=== PATIENT | female | born 1955 | race Caucasian/White ===

== ENCOUNTER 2016-09-30 22:20 | Inpatient (IN) | payer BC ==
[2016-09-30] VITALS (7 sets, daily range): BP systolic 174–193; BP diastolic 79–95; PULSE 78–86; RESP 16–18; TEMP 97.7; O2SAT 98–100
[~2016-09-30] VITALS: Ht 160 cm; Wt 38.9 kg
[~2016-09-30 22:20] MED LIST: ASPI325T PO; CLOP75 PO
[2016-09-30] MEDS ORDERED: SODIUM CHLORIDE 0.9% FLUSH 10 ML FLUSH IVF PRN (22:45)
--- NOTE | 2016-09-30 22:46 | PD ---
HPI Chief Complaint: leg weakness Time Seen by Provider: 22:33 Travel History International Travel<30 days: No Contact w/Intl Traveler<30days: No History of Present Illness HPI This is a 61-year-old female who presents to the emergency Department with onset of numbness and weakness in her left leg that started at around 3:00 this afternoon. She says she intermittently sat on the couch and then tried to walk around hoping it would go away but it hasn't minutes persisted throughout the day prompting her to come to the emergency department at 10:30 this evening. She denies any headache, difficulty speaking or upper extremity weakness. She has no pain in her feet. She had a stroke 3 years ago after which she had some difficulty speaking. She currently takes Plavix. She also has a remote history of uvular cancer. [facility] Past Medical History Narrative Medical prior stroke uvular cancer Social History Alcohol Use: No Tobacco Use: Yes Substance Use: Yes (marijuana occasionally) Allergies-Medications (Allergen,Severity, Reaction): Coded Allergies: Ampicillin (Verified Allergy, Intermediate, Rash, 09/30/16) Uncoded Allergies: AMPICILLIN-RASH (Allergy, Intermediate, Rash, 05/02/09) NKA (Allergy, Unknown, 11/28/02) Reported Meds & Prescriptions Reported Meds & Active Scripts Active Reported Plavix (Clopidogrel Bisulfate) 75 Mg Tab 75 Mg PO DAILY Review of Systems Except as stated in HPI: all other systems reviewed are Neg Physical Exam Narrative GENERAL: Cachectic, no acute distress SKIN: Focused skin assessment warm and dry. HEAD: Atraumatic. Normocephalic. EYES: Pupils equal and round. No injection or drainage. ENT: Moist mucous membranes NECK: Trachea midline. CARDIOVASCULAR: Regular rate and rhythm. No murmur appreciated. 2+ right dorsalis pedis pulse RESPIRATORY: Clear to auscultation. Breath sounds equal bilaterally. GASTROINTESTINAL: Abdomen soft, non-tender, nondistended. MUSCULOSKELETAL: No obvious deformities. NEUROLOGICAL: Awake and alert. No obvious cranial nerve deficits. No dysarthria or aphasia. 4 out of 5 strength in the left lower extremity. Decreased sensation in the left lower extremity distally involving the dorsal aspect of the foot and distal aspect of the leg. No upper extremity ataxia. PSYCHIATRIC: Appropriate mood and affect; insight and judgment normal. Data Data Last Documented VS Vital Signs Date Time Temp Pulse Resp B/P Pulse Ox O2 Delivery O2 Flow Rate FiO2 10/01/16 00:50 97.4 81 18 161/79 98 Room Air Orders Electrocardiogram (09/30/16 22:33) Prothrombin Time / Inr (Pt) (09/30/16 22:33) Act Partial Throm Time (Ptt) (09/30/16 22:33) Complete Blood Count With Diff (09/30/16 22:33) Comprehensive Metabolic Panel (09/30/16 22:33) Ct Brain W/O Iv Contrast(Rout) (09/30/16 22:33) Ecg Monitoring (09/30/16 22:33) Iv Access Insert/Monitor (09/30/16:33) Oximetry (09/30/16 22:33) Sodium Chloride 0.9% Flush (Ns Flush) (09/30/16 22:45) Cta Runoff W Iv Contrast W 3d (09/30/16 ) Chest, Single Ap (09/30/16 ) Urinalysis - C+S If Indicated (09/30/16 23:06) Lactic Acid (09/30/16 23:06) Sodium Chlor 0.9% 1000 Ml Inj (Ns 1000 M (09/30/16 23:30) Cath For Specimen (09/30/16 23:43) Iohexol 350 Inj (Omnipaque 350 Inj) (09/30/16 23:49) Urine Culture (10/01/16 00:00) Ciprofloxacin 400 Mg Premix (Cipro 400 M (10/01/16 01:15) Sodium Chlorid 0.9% 500 Ml Inj (Ns 500 M (10/01/16 01:15) Blood Culture (10/01/16 01:08) Lactic Acid (10/01/16 01:24) Heparin Infusion FAISAL.Q1H (10/01/16 01:59) Heparin Inj (Heparin Inj) (10/01/16 02:00) Heparin Inj (Heparin Inj) (10/01/16 08:00) Heparin Inj (Heparin Inj) (10/01/16 08:00) Heparin-D5w Inj (Heparin-D5w Inj) (10/01/16 02:00) Act Partial Throm Time (Ptt) (10/01/16 01:59) Cbc No Diff, Includes Plts (10/01/16 01:59) Cbc No Diff, Includes Plts (10/04/16 06:00) Act Partial Throm Time (Ptt) (10/01/16 08:59) Occult Blood (Hemoccult) Stool (10/01/16 01:59) Invasive Rad Dept Consult (10/01/16 ) Admit Order (Ed Use Only) (10/01/16 02:16) Admit To Inpatient (10/01/16 ) Vital Signs (Adult) Q4H (10/01/16 02:16) Activity Bed Rest (10/01/16 02:16) Fashion Styling Intern / Telemetry .CONTINUOUS (10/01/16 02:16) Diet Npo (10/01/16 Breakfast) Sodium Chloride 0.9% Flush (Ns Flush) (10/01/16 02:30) Sodium Chloride 0.9% Flush (Ns Flush) (10/01/16 09:00) Basic Metabolic Panel (Bmp) (10/02/16 06:00) Complete Blood Count With Diff (10/02/16 06:00) Case Management Consult (10/01/16 02:16) Naloxone Inj (Narcan Inj) (10/01/16 02:30) Inpatient Certification (10/01/16 ) Labs Laboratory Tests Test 09/30/16 09/30/16 10/01/16 10/01/16 22:35 23:15 00:00 01:25 White Blood Count 18.3 TH/MM3 Red Blood Count 4.45 MIL/MM3 Hemoglobin 13.8 GM/DL Hematocrit 42.1 % Mean Corpuscular Volume 94.5 FL Mean Corpuscular Hemoglobin 30.9 PG Mean Corpuscular Hemoglobin 32.7 % Concent Red Cell Distribution Width 15.6 % Platelet Count 849 TH/MM3 Mean Platelet Volume 6.9 FL Neutrophils (%) (Auto) 89.5 % Lymphocytes (%) (Auto) 4.7 % Monocytes (%) (Auto) 4.6 % Eosinophils (%) (Auto) 0.3 % Basophils (%) (Auto) 0.9 % Neutrophils # (Auto) 16.3 TH/MM3 Lymphocytes # (Auto) 0.9 TH/MM3 Monocytes # (Auto) 0.8 TH/MM3 Eosinophils # (Auto) 0.1 TH/MM3 Basophils # (Auto) 0.2 TH/MM3 CBC Comment AUTO DIFF Differential Comment AUTO DIFF CONFIRMED Platelet Estimate HIGH Platelet Morphology Comment NORMAL Prothrombin Time 12.0 SEC Prothromb Time International 1.1 RATIO Ratio Activated Partial 31.3 SEC Thromboplast Time Sodium Level 131 MEQ/L Potassium Level 3.7 MEQ/L Chloride Level 99 MEQ/L Carbon Dioxide Level 23.1 MEQ/L Anion Gap 9 MEQ/L Blood Urea Nitrogen 23 MG/DL Creatinine 1.20 MG/DL Estimat Glomerular Filtration 46 ML/MIN Rate Random Glucose 304 MG/DL Calcium Level 9.3 MG/DL Total Bilirubin 0.3 MG/DL Aspartate Amino Transf 60 U/L (AST/SGOT) Alanine Aminotransferase 87 U/L (ALT/SGPT) Alkaline Phosphatase 337 U/L Total Protein 8.2 GM/DL Albumin 3.4 GM/DL Lactic Acid Level 2.8 mmol/L 2.5 mmol/L Urine Collection Type CATH Urine Color YELLOW Urine Turbidity SLIGHT Urine pH 5.5 Urine Specific [place] 1.019 Urine Protein NEG mg/dL Urine Glucose (UA) 1000 OR GREATER mg/dL Urine Ketones NEG mg/dL Urine Occult Blood SMALL Urine Nitrite POS Urine Bilirubin NEG Urine Leukocyte Esterase NEG Urine RBC 0-3 /hpf Urine WBC 3-5 /hpf Urine Bacteria MANY /hpf Urine Hyaline Casts 3-5 /lpf Urine Mucus OCC /lpf Microscopic Urinalysis Comment CULTURE INDICATED MDM Medical Decision Making Medical Screen Exam Complete: Yes Emergency Medical Condition: Yes Interpretation(s) Afebrile, no tachycardia, mild hypertension Leukocytosis Thrombocytosis Hyperglycemia Alkaline phosphatase is 337 Occlusion of the common femoral artery with some reconstitution of flow but then occlusion of distal tributaries Differential Diagnosis Ischemic stroke, hemorrhagic stroke, arterial occlusion, neuropathy Narrative Course This is a 61-year-old female who presented to the emergency department reporting numbness and weakness in her left lower extremity. She initially thought she may have had a stroke. Her symptoms started around 3 PM today and she felt it go away but they only got worse. On exam she has a left lower extremity that is cooler than the right now is unable to Doppler a DP pulse on the left. I suspect her symptoms are secondary to arterial occlusion. CTA was obtained which demonstrates occlusion of the common femoral some reconstitution of flow but distal occlusion that is likely causing her symptoms. She was started on heparin. I spoke to Dr. Blanco regarding the patient's CTA results. She will be transferred to the main hospital for intervention radiology evaluation as soon as possible. We discussed possibly placing a central line. 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 I will defer to interventional radiology as I don't want to interfere with access for their procedure. Incidentally the patient also has a leukocytosis and thrombocytosis. Her alkaline phosphatase is slightly elevated. She is cachectic on exam and I would not be surprised if she has an underlying malignancy contributing to some of her lab abnormalities. She also has a urinary tract infection for which she was covered with ciprofloxacin. Physician Communication Physician Communication Discussed with Dr. Blanco and Dr. Schmidt Diagnosis Primary Impression: Arterial occlusion Additional Impression: Urinary tract infection Qualified Code: N30.00 - Acute cystitis without hematuria Admitting Information Admitting Physician Requests: it Raina Cheema MD Sep 30, 2016 22:46
[2016-09-30 22:54] LABS: AUTOMATED NEUTROPHIL # 16.3 TH/MM3 (1.8-7.7); BASOPHIL # 0.2 TH/MM3 (0-0.2); BASOPHIL % 0.9 % (0.0-2.0); EOSINOPHIL # 0.1 TH/MM3 (0-0.4); EOSINOPHIL % 0.3 % (0.0-4.0); HEMATOCRIT 42.1 % (35.0-46.0); HEMO FLAGS AUTO DIFF; LYMPH % 4.7 % (9.0-44.0); LYMPHOCYTE # 0.9 TH/MM3 (1.0-4.8); MEAN CELL VOLUME 94.5 FL (80.0-100.0); MEAN CORPUSCULAR HEMOGLOBIN 30.9 PG (27.0-34.0); MEAN CORPUSCULAR HGB CONC 32.7 % (32.0-36.0); MONO % 4.6 % (0.0-8.0); NEUT % 89.5 % (16.0-70.0); PLATELET COUNT 849 TH/MM3 (150-450); RED BLOOD COUNT 4.45 MIL/MM3 (4.00-5.30); RED CELL DISTRIBUTION WIDTH 15.6 % (11.6-17.2); WHITE BLOOD COUNT 18.3 TH/MM3 (4.0-11.0)
[2016-09-30] MEDS ORDERED: PLAV75TA29 PO (22:54)
[2016-09-30 23:06] LABS: CHLORIDE 99 MEQ/L (98-107); POTASSIUM 3.7 MEQ/L (3.5-5.1); SODIUM (NA) 131 MEQ/L (136-145)
[2016-09-30 23:10] LABS: ANION GAP 9 MEQ/L (5-15); BICARBONATE 23.1 MEQ/L (21.0-32.0); BLOOD UREA NITROGEN 23 MG/DL (7-18)
[2016-09-30 23:13] LABS: ALT (GPT) 87 U/L (10-53); AST (GOT) 60 U/L (15-37); GLOMERULAR FILTRATION RATE 46 ML/MIN (>89)
[2016-09-30 23:15] LABS: TOTAL BILIRUBIN ADULT 0.3 MG/DL (0.2-1.0)
[2016-09-30 23:16] LABS: ALKALINE PHOSPHATASE 337 U/L (45-117)
[2016-09-30 23:24] LABS: PLATELET ESTIMATE SMEAR HIGH (NORMAL); PLATELET MORPHOLOGY NORMAL (NORMAL); SCAN/DIFF AUTO DIFF CONFIRMED
[2016-09-30] MEDS ORDERED: SODIUM CHLOR 0.9% 1000 ML INJ 1,000 ML IV ONE (23:30)
[2016-09-30 23:35] LABS: APTT (PATIENT) 31.3 SEC (24.3-30.1); INTERNATIONAL NORMALIZED RATIO 1.1 RATIO
[2016-09-30] MEDS ORDERED: IOHEXOL 350 MG/ML 10 ML VIAL (for RAD DIAG) IV ONE (23:49)
[2016-10-01] VITALS (21 sets, daily range): BP systolic 107–181; BP diastolic 63–95; PULSE 59–95; RESP 16–23; TEMP 97.4–98.5; O2SAT 65–100
--- NOTE | 2016-10-01 | RADRPT ---
EXAM DATE/TIME: 09/30/2016 23:18 [facility] COMPARISON: No previous studies available for comparison. INDICATIONS : Left lower extremity weakness. Evaluate for cerebrovascular accident. RADIATION DOSE: 63.09 CTDIvol (mGy) MEDICAL HISTORY : Cerebrovascular disease. carcinoma, uvula SURGICAL HISTORY : Tubal ligation. uvula ENCOUNTER: Initial ACUITY: 1 day PAIN SCALE: 0/10 LOCATION: Left lower extremity TECHNIQUE: Multiple contiguous axial images were obtained of the head. Using automated exposure control and adj ustment of the mA and/or kV according to patient size, radiation dose was kept as low as reasonably a chievable to obtain optimal diagnostic quality images. DICOM format image data is available electro nically for review and comparison. FINDINGS: CEREBRUM: The ventricles are normal for age. No evidence of midline shift, mass lesion, hemorrhage or acute in farction. No extra-axial fluid collections are seen. Areas of encephalomalacia compatible with old i nfarcts are seen of the left parietal and frontal lobes. POSTERIOR FOSSA: The cerebellum and brainstem are intact. The 4th ventricle is midline. The cerebellopontine angle i s unremarkable. EXTRACRANIAL: There is a mucous retention cyst anteriorly in the right ethmoid air cells. SKULL: The calvaria is intact. No evidence of skull fracture. CONCLUSION: 1. No bleed or evidence of an acute ischemic event. 2. 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 3. Chronic-appearing sinus disease. Mitch Choi MD on September 30, 2016 at 23:57 Board Certified Radiologist. This report was verified electronically.
--- NOTE | 2016-10-01 00:02 | RADRPT ---
EXAM DATE/TIME: 09/30/2016 23:39 [facility] COMPARISON: No previous studies available for comparison. INDICATIONS : Short of breath. MEDICAL HISTORY : None. SURGICAL HISTORY : None. ENCOUNTER: Initial ACUITY: 1 day PAIN SCORE: 0/10 LOCATION: Bilateral chest FINDINGS: A single view of the chest demonstrates the lungs to be symmetrically aerated without evidence of mas s, infiltrate or effusion. The cardiomediastinal contours are unremarkable. Osseous structures are intact. CONCLUSION: No acute cardiopulmonary disease demonstrated. Mitch Choi MD on October 01, 2016 at 0:00 Board Certified Radiologist. This report was verified electronically.
[2016-10-01 00:23] LABS: BLOOD, URINE SMALL (NEG); KETONE, URINE NEG (NEG); PH, URINE 5.5 (5.0-8.5)
[2016-10-01 00:32] LABS: GLUCOSE,URINE 1000 OR GREATER mg/dL (NEG); NITRITE,URINE POS (NEG)
[2016-10-01 00:35] LABS: METHOD OF COLLECTION CATH; URINE COLOR YELLOW (YELLW/STRAW)
[2016-10-01 00:37] LABS: BACTERIA, URINE MANY /hpf; MUCUS URINE OCC /lpf (OCC)
[2016-10-01 00:38] LABS: RBC, URINE 0-3 /hpf (0-3)
[2016-10-01 00:49] LABS: COMMENT (UR) CULTURE INDICATED; CULTURE IF INDICATED CULTURE INDICATED
[2016-10-01] MEDS ORDERED: CIPROFLOXACIN 400 MG PREMIX 200 ML IV ONE (01:15)
[2016-10-01] MEDS ORDERED: SODIUM CHLORID 0.9% 500 ML INJ 500 ML IV ONE (01:15)
[2016-10-01] MEDS ORDERED: HEPARIN SODIUM - IV 10,000 UNITS/10 ML VIAL IV ONE (02:00)
[2016-10-01] MEDS ORDERED: HEPARIN-D5W INJ 250 ML IV SCH (02:00)
[2016-10-01] MEDS ORDERED: NALOXONE HCL 0.4 MG/ML AMP IV PRN (02:30)
[2016-10-01] MEDS ORDERED: SODIUM CHLORIDE 0.9% FLUSH 10 ML FLUSH IV FLUSH PRN (02:30)
[2016-10-01] MEDS ORDERED: MORPHINE SULFATE 4 MG/ML INJ IV PUSH ONE (02:45)
[2016-10-01 02:58] LABS: HEMATOCRIT 39.2 % (35.0-46.0); MEAN CELL VOLUME 95.1 FL (80.0-100.0); MEAN CORPUSCULAR HEMOGLOBIN 31.2 PG (27.0-34.0); MEAN CORPUSCULAR HGB CONC 32.8 % (32.0-36.0); PLATELET COUNT 683 TH/MM3 (150-450); RED BLOOD COUNT 4.13 MIL/MM3 (4.00-5.30); WHITE BLOOD COUNT 14.9 TH/MM3 (4.0-11.0)
[2016-10-01] MEDS ORDERED: MORPHINE SULFATE 8 MG/ML INJ IV PUSH ONE (03:00)
[2016-10-01 03:16] LABS: REVIEW FLAG FINAL
[2016-10-01 03:21] LABS: APTT (PATIENT) 32.9 SEC (24.3-30.1)
--- NOTE | 2016-10-01 04:34 | PD ---
Physical Exam Narrative General: The patient is a well-developed, thin appearing female in no acute distress. Head and Neck exam: Head is normocephalic atraumatic. Eyes: EOMI, pupils are equal round and reactive to light. Nose: Midline septum with pink mucous membranes Mouth: She is edentulous. Moist mucus membranes. Posterior oropharynx is not erythematous. No tonsillar hypertrophy. Uvula midline. Airway patent. Neck: No palpable lymphadenopathy. No nuchal rigidity. No thyromegaly. Cardiovascular: Regular rate and rhythm with a 1/6 systolic murmur. No gallops or rubs. No pulse deficit to the extremities and simultaneous auscultation and palpation of her radial artery. Lungs: Clear to auscultation bilaterally. No wheezes, rhonchi, or rales. Abdomen: Soft, without tenderness to palpation in all 4 quadrants of the abdomen. No guarding, rebound, or rigidity. Normal bowel sounds are audible. No tenderness on palpation of McBurney's point. Negative [place] sign. Extremities: No clubbing, cyanosis, or edema. The patient has equal coloration to bilateral lower extremities. The patient's left extremity is palpably cooler to touch compared to the right. The patient has a 2+ pulse in bilateral upper extremities, 2+ pulses in the right lower extremity. No palpable pulse in the left lower extremity. The patient's capillary refill on the left compared to the right is prolonged at 5 seconds. The patient has full range of motion of her left foot. The patient reports that previously she was not able to feel her left foot, however on examination at this time the patient reports having some sensation to her toes. No calf tenderness on palpation. Back: No costovertebral angle tenderness to palpation. Neurologic Exam: Grossly nonfocal. Skin Exam: No rash noted. Intact skin that is warm and dry. Data Data Last Documented VS Vital Signs Date Time Temp Pulse Resp B/P Pulse Ox O2 Delivery O2 Flow Rate FiO2 10/01/16 01:50 82 18 171/79 98 Room Air 10/01/16 00:50 97.4 Orders Electrocardiogram (09/30/16 22:33) Prothrombin Time / Inr (Pt) (09/30/16 22:33) Act Partial Throm Time (Ptt) (09/30/16 22:33) Complete Blood Count With Diff (09/30/16 22:33) Comprehensive Metabolic Panel (09/30/16 22:33) Ct Brain W/O Iv Contrast(Rout) (09/30/16 22:33) Ecg Monitoring (09/30/16 22:33) Iv Access Insert/Monitor (09/30/16 22:33) Oximetry (09/30/16 22:33) Sodium Chloride 0.9% Flush (Ns Flush) (09/30/16 22:45) Cta Runoff W Iv Contrast W 3d (09/30/16 ) Chest, Single Ap (09/30/16 ) Urinalysis - C+S If Indicated (09/30/16 23:06) Lactic Acid (09/30/16 23:06) Sodium Chlor 0.9% 1000 Ml Inj (Ns 1000 M (09/30/16 23:30) Cath For Specimen (09/30/16 23:43) Iohexol 350 Inj (Omnipaque 350 Inj) (09/30/16 23:49) Urine Culture (10/01/16 00:00) Ciprofloxacin 400 Mg Premix (Cipro 400 M (10/01/16 01:15) Sodium Chlorid 0.9% 500 Ml Inj (Ns 500 M (10/01/16 01:15) Blood Culture (10/01/16 01:08) Lactic Acid (10/01/16 01:24) Heparin Infusion FAISAL.Q1H (10/01/16 01:59) Heparin Inj (Heparin Inj) (10/01/16 02:00) Heparin Inj (Heparin Inj) (10/01/16 08:00) Heparin Inj (Heparin Inj) (10/01/16 08:00) Heparin-D5w Inj (Heparin-D5w Inj) (10/01/16 02:00) Act Partial Throm Time (Ptt) (10/01/16 01:59) Cbc No Diff, Includes Plts (10/01/16 01:59) Cbc No Diff, Includes Plts (10/04/16 06:00) Act Partial Throm Time (Ptt) (10/01/16 08:59) Occult Blood (Hemoccult) Stool (10/01/16 01:59) Invasive Rad Dept Consult (10/01/16 ) Admit Order (Ed Use Only) (10/01/16 02:16) Admit To Inpatient (10/01/16 ) Vital Signs (Adult) Q4H (10/01/16 02:16) Activity Bed Rest (10/01/16 02:16) Vocational Rehabilitation Consultant / Telemetry .CONTINUOUS (10/01/16 02:16) Diet Npo (10/01/16 Breakfast) Sodium Chloride 0.9% Flush (Ns Flush) (10/01/16 02:30) Sodium Chloride 0.9% Flush (Ns Flush) (10/01/16 09:00) Basic Metabolic Panel (Bmp) (10/02/16 06:00) Complete Blood Count With Diff (10/02/16 06:00) Case Management Consult (10/01/16 02:16) Naloxone Inj (Narcan Inj) (10/01/16 02:30) Inpatient Certification (10/01/16 ) Labs Laboratory Tests Test 09/30/16 09/30/16 10/01/16 10/01/16 22:35 23:15 00:00 01:25 White Blood Count 18.3 TH/MM3 Red Blood Count 4.45 MIL/MM3 Hemoglobin 13.8 GM/DL Hematocrit 42.1 % Mean Corpuscular Volume 94.5 FL Mean Corpuscular Hemoglobin 30.9 PG Mean Corpuscular Hemoglobin 32.7 % Concent Red Cell Distribution Width 15.6 % Platelet Count 849 TH/MM3 Mean Platelet Volume 6.9 FL Neutrophils (%) (Auto) 89.5 % Lymphocytes (%) (Auto) 4.7 % Monocytes (%) (Auto) 4.6 % Eosinophils (%) (Auto) 0.3 % Basophils (%) (Auto) 0.9 % Neutrophils # (Auto) 16.3 TH/MM3 Lymphocytes # (Auto) 0.9 TH/MM3 Monocytes # (Auto) 0.8 TH/MM3 Eosinophils # (Auto) 0.1 TH/MM3 Basophils # (Auto) 0.2 TH/MM3 CBC Comment AUTO DIFF Differential Comment AUTO DIFF CONFIRMED Platelet Estimate HIGH Platelet Morphology Comment NORMAL Prothrombin Time 12.0 SEC Prothromb Time International 1.1 RATIO Ratio Activated Partial 31.3 SEC Thromboplast Time Sodium Level 131 MEQ/L Potassium Level 3.7 MEQ/L Chloride Level 99 MEQ/L Carbon Dioxide Level 23.1 MEQ/L Anion Gap 9 MEQ/L Blood Urea Nitrogen 23 MG/DL Creatinine 1.20 MG/DL Estimat Glomerular Filtration 46 ML/MIN Rate Random Glucose 304 MG/DL Calcium Level 9.3 MG/DL Total Bilirubin 0.3 MG/DL Aspartate Amino Transf 60 U/L (AST/SGOT) Alanine Aminotransferase 87 U/L (ALT/SGPT) Alkaline Phosphatase 337 U/L Total Protein 8.2 GM/DL Albumin 3.4 GM/DL Lactic Acid Level 2.8 mmol/L 2.5 mmol/L Urine Collection Type CATH Urine Color YELLOW Urine Turbidity SLIGHT Urine pH 5.5 Urine Specific [place] 1.019 Urine Protein NEG mg/dL Urine Glucose (UA) 1000 OR GREATER mg/dL Urine Ketones NEG mg/dL Urine Occult Blood SMALL Urine Nitrite POS Urine Bilirubin NEG Urine Leukocyte Esterase NEG Urine RBC 0-3 /hpf Urine WBC 3-5 /hpf Urine Bacteria MANY /hpf Urine Hyaline Casts 3-5 /lpf Urine Mucus OCC /lpf Microscopic Urinalysis Comment CULTURE INDICATED Test 10/01/16 02:15 White Blood Count 14.9 TH/MM3 Red Blood Count 4.13 MIL/MM3 Hemoglobin 12.9 GM/DL Hematocrit 39.2 % Mean Corpuscular Volume 95.1 FL Mean Corpuscular Hemoglobin 31.2 PG Mean Corpuscular Hemoglobin 32.8 % Concent Red Cell Distribution Width 16.0 % Platelet Count 683 TH/MM3 Mean Platelet Volume 6.9 FL Activated Partial 32.9 SEC Thromboplast Time [facility] Medical Record Reviewed: Yes Supervised Visit with ARIES: No Interpretation(s) Last Impressions Head CT 09/30/16 2233 Signed Impressions: Service Date/Time: Friday, September 30, 2016 23:18 - CONCLUSION: 1. No bleed or evidence of an acute ischemic event. 2. 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 3. Chronic-appearing sinus disease. Mitch Choi MD Chest X-Ray 09/30/16 0000 Signed Impressions: Service Date/Time: Friday, September 30, 2016 23:39 - CONCLUSION: No acute cardiopulmonary disease demonstrated. Mitch Choi MD Narrative Course During the course of the patients emergency department visit, the patients history, examination, and differential diagnosis were reviewed with the patient. The patient had IV access obtained and blood work sent for analysis. The patient was accepted in transfer from the [facility] emergency department. The patient was diagnosed with an arterial occlusion of the left leg. The patient reports that the onset of pain and numbness in her left leg began at approximately 3 to 4 PM. She reports that she was sitting on the couch and when she got up she noticed that she had numbness to that extremity. The patient was initially provided [-]. The patients laboratory studies were reviewed and remarkable for a white count of 14.9, hemoglobin 12.9, platelets 83, CMP is remarkable for a sodium of 131, BUN 23, creatinine 1.20, leukocyte 304, lactic acid 2.8, alkaline phosphatase 337, ALT 87, AST 60, PT 12, INR 1.1, PTT 31.3, repeat PTT is 32.9. The patient has been started on heparin. Urinalysis reveals 1000 or greater glucose, small occult blood, positive nitrite, many bacteria, culture indicated. Radiology studies were reviewed and remarkable for a chest x-ray that shows no acute cardiopulmonary disease, CT scan of the brain shows no evidence of bleed or acute ischemic event, left frontal and parietal lobe infarcts, chronic appearing sinus disease. The patient has been accepted in transfer to this facility by the [facility] hospitalist, Dr. Schmidt. She has been called regarding the patient's arrival in this emergency department. The patient has been transferred to this facility for intervention by the interventional radiology Department regarding her arterial occlusion of the left leg. Physician Communication Physician Communication I spoke to Dr. Schmidt regarding this patient's case. She is made aware that the patient is currently in the emergency department as a transfer from [place]. Diagnosis Primary Impression: Arterial occlusion Additional Impression: Urinary tract infection Qualified Code: N30.00 - Acute cystitis without hematuria Admitting Information Admitting Physician Requests: Admit Renée Villanueva MD Oct 01, 2016 04:34
[2016-10-01] MEDS ORDERED: HEPARIN SODIUM - IV 10,000 UNITS/10 ML VIAL IV PRN ×2 (08:00)
[2016-10-01] MEDS ORDERED: MIDAZOLAM HCL 5 MG/5 ML VIAL ONE (08:21)
[2016-10-01] MEDS ORDERED: fentaNYL CITRATE 250 MCG/5 ML AMP ONE (08:21)
--- NOTE | 2016-10-01 08:57 | RADRPT ---
EXAM DATE/TIME: 09/30/2016 23:24 [facility] COMPARISON: CHEST SINGLE AP, September 30, 2016, 23:39. INDICATIONS : Left lower extremity weakness. IV CONTRAST: 100 cc Omnipaque 350 (iohexol) IV RADIATION DOSE: 11.25 CTDIvol (mGy) MEDICAL HISTORY : Cerebrovascular disease. Carcinoma, uvula SURGICAL HISTORY : Tubal ligation. Uvula ENCOUNTER: Initial ACUITY: 1 day PAIN SCALE: 0/10 LOCATION: Left lower extremity TECHNIQUE: Volumetric scanning was performed using a multi-row detector CT scanner. The data was post processed with a variety of visualization algorithms including full volume maximum intensity projection, multi -planar sliding thin slab reformation, curved planar reformation, and surface rendering techniques. Using automated exposure control and adjustment of the mA and/or kV according to patient size, radiat ion dose was kept as low as reasonably achievable to obtain optimal diagnostic quality images. DICO M format image data is available electronically for review and comparison. FINDINGS: AORTA: Moderate distal aortic atherosclerotic calcifications without significant flow-limiting stenosis. No aortic aneurysm or significant dissection. A VISCERAL ARTERIES: Single bilateral renal arteries. This concentric moderate stenosis of the proximal right renal artery . Left renal artery is patent. Celiac, SMA, and ELENA are widely patent. RIGHT LEG: INFLOW: Bulky calcified plaque at the origin of the right common iliac artery. Eccentric noncalcified plaque throughout the right common iliac artery with resultant diffuse mild to moderate stenosis. Severe evens nosis of the ELENA origin. External iliac artery is patent. Noncalcified plaque in the mid to distal co mmon femoral artery with resultant moderate stenosis. OUTFLOW: Profunda femoris and SFA are widely patent. Popliteal artery is patent. RUNOFF: Three-vessel runoff to the foot. LEFT LEG: INFLOW: Mild atherosclerotic plaque at the origin of the common iliac artery. Moderate calcified plaque in th e distal left common iliac artery with resultant mild stenosis. External iliac artery is patent. Ecce ntric mixed plaque extending from the origin of the common femoral artery with occlusion of the mid t o distal common femoral artery. There is thrombus extending to the origin of the SFA and profunda. OUTFLOW: Profunda branches reconstitute distally. There is reconstitution of the SFA in the very proximal thig h. SFA is small in caliber but otherwise patent. The popliteal artery is also small in caliber but ot herwise patent. RUNOFF: Three-vessel runoff to the proximal calf. Distally, the runoff vessels are not visualized, concerning for distal emboli. GENERAL FINDINGS: Visualized lung bases are clear. Visualization of the abdominal viscera is limited due to arterial ph ase technique. Visualized portions of the liver demonstrate multiple hypodense masses in both lobes o f the liver. Largest mass measures approximately 3.4 x 2.7 cm in the central right lobe of the liver. No significant volume loss or hepatic ductal dilatation. There also bilateral low density adrenal ma sses. Right adrenal mass measures 9.5 x 1.2 cm. In the right the multiple left adrenal masses. The la rgest mass measures 3.9 x 2.1 cm. There is a subcentimeter region of decreased density in the spleen which may be related to her phase of contrast or. There is a 4 mm calcified calculus in the posterior mid left kidney. Numerous bilateral subcentimeter cystic lesions which are too small to fully charac terize. Kidneys otherwise demonstrate symmetrical enhancement without significant hydronephrosis. [place] el appear grossly unremarkable. There is a small amount of endometrial fluid. Uterus otherwise appears unremarkable. There are bilate ral adnexal masses measuring 2.5 x 2.4 cm on the left and 2.1 x 2.5 cm on the right. Trace free fluid in the posterior pelvis. Bladder is distended but otherwise unremarkable. There are no abnormal lyti c or blastic bony lesions. CONCLUSION: 1. Abnormal examination demonstrating occlusion of the left common femoral artery with thrombus exten ding to the origin of the profunda and SFA. Additionally, the left runoff vessels are not visualized beyond the proximal calf concerning for distal emboli. 2. Large bilateral adrenal masses and numerous bilobar low density hepatic masses consistent with met astatic disease. 3. Bilateral adnexal prominence/masses, likely ovarian in etiology. This can be further evaluated wit h ultrasound exam. Differential considerations include prominent ovarian tissue versus ovarian masses , likely metastatic. Overall pattern of the abnormalities in the abdomen is not consistent with ovari an primary. 4. Subcentimeter region of ill-defined decreased density in the spleen may be related to phase of con trast although a splenic mass cannot be excluded. 5. Additional findings include nonobstructing 4 mm left renal calculus. Josias Mena MD on October 01, 2016 at 7:42 Board Certified Radiologist. This report was verified electronically.
[2016-10-01] MEDS ORDERED: ALTEPLASE RECOMBINANT 2 MG VIAL ONE (09:00)
[2016-10-01] MEDS: SODIUM CHLORIDE 0.9% FLUSH 10 ML FLUSH IV FLUSH SCH ×2 (09:00→21:00)
[2016-10-01] MEDS ORDERED: IODIXANOL 320 MG/ML 50 ML VIAL (for RAD SPEC) I-ARTERIAL ONE (11:03)
--- NOTE | 2016-10-01 11:06 | EKG ---
Date Performed: 09/30/2016 Time Performed: 22:44:48 PTAGE: 61 years EKG: Sinus rhythm NORMAL ECG Compared to prior tracing no significant change DOCTOR: El Beckett Interpretating Date/Time 10/01/2016 11:05:50
[2016-10-01] MEDS ORDERED: ONDANSETRON HCL 4 MG/2 ML VIAL ONE (11:28)
--- NOTE | 2016-10-01 11:36 | PD.RAD ---
Post Procedure Progress Note Pre Procedure Diagnosis: (1) Arterial occlusion Post Procedure Diagnosis: (1) Arterial occlusion Procedure Date: Oct 01, 2016 Supervising Radiologist: Josias Mena Proceduralist/Assist: Addy Rodriguez, RT(R), Alisha Loomis, RT(R), Elizabeth Joseph RT(R)() Anesthesia: Conscious Sedation Plan of Activity Patient to Unit: [facility] Patient Condition: Good Additional Comments: Occluded left MEDICATION ASSISTANT with distal SFA and POP embolism. Good result after TPA pulse spray and angiojet thrombectomy. See PACS Report for procedural detail/treatment Josias Mena MD Oct 01, 2016 11:36
[2016-10-01] MEDS ORDERED: ACETAMINOPHEN 325 MG TAB PO PRN (11:45)
[2016-10-01] MEDS: CIPROFLOXACIN 400 MG PREMIX 200 ML IV SCH (12:00)
--- NOTE | 2016-10-01 14:54 | RADRPT ---
EXAM DATE/TIME: 10/01/2016 08:38 [facility] COMPARISON: No previous studies available for comparison. INDICATIONS : 61-year-old female with history of suspected metastatic disease who presents with acute left lower ex tremity ischemia. CTA examination demonstrates occlusion of the left common femoral artery and likely embolic disease to the runoff vessels. Patient presents for angiography and possible intervention. 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 Ultrasound-guided puncture of the access site. 2. Conscious sedation with continuous EKG and Oximetry monitoring. 3. Pelvic angiogram 4. Selective catheter placement in the contralateral right SFA with right lower extremity runoff 5. TPA and AngioJet thrombolysis of the right common femoral artery, SFA, and popliteal artery 6. 5 mm balloon angioplasty of the distal left common femoral artery The risks, benefits and alternatives to the procedure were explained and verbal and written consent w as obtained. The site was prepped in sterile fashion. Full sterile technique was used, including ca p, mask, sterile gloves and gown and a large sterile sheet. Hand hygiene and 2% chlorhexidine and/or betadine/alcohol prep was utilized per protocol for cutaneous antisepsis. The skin and subcutaneous tissues were infiltrated with local anesthetic solution. With ultrasound and fluoroscopic guidance the selected artery was punctured and a vascular sheath was placed. 5 Iraqi flush catheter was then advanced into the distal abdominal aorta and pelvic angioma s performed. This confirmed the significantly sluggish flow in the left external iliac artery seconda ry to occlusion of the mid to distal left common femoral artery. Catheter was then advanced into the proximal right SFA with the assistance of a Glidewire. Bilateral runoff was performed. This demonstra marlyn a small emboli in the distal SFA, popliteal artery, and origin of the anterior tibial artery. Gli dewire was successfully advanced into the distal anterior tibial artery and the sheath was exchanged for a 6 Iraqi sheath which was placed in the contralateral right external iliac artery. Next, 10 mg of TPA were aspirated through the left femoral artery, SFA, popliteal artery and origin of the anteri or tibial artery. Following a 30 minute time, AngioJet thrombectomy was performed with total time was approximately 110 seconds. A followup angiography demonstrated continued flow to the critical stenos is of the distal common femoral artery at the bifurcation. 5 x 40 mm balloon angioplasty was then per formed in the distal left common femoral artery with balloon inflated to nominal pressure. Followup a ngiography demonstrated excellent angiographic results with brisk flow through the common femoral art wily into the SFA. Repeat lower extremity runoff was then performed demonstrating brisk flow through t he SFA and popliteal arteries with a dominant anterior tibial artery. Flow extends to the dorsal and plantar arches although the plantar arch appears diminutive in caliber which may reflect some degree of micro-distal emboli. Given suspected metastatic disease, decision was made to terminate the proce dure at this time with sufficient flow to maintain viability of the left foot. There are excellent pa lpable dorsalis pedis and posterior tibial pulses. Wires and catheters were then removed. The puncture site was closed with manual pressure and hemostasis was obtained. The patient tolerated the procedure well and there were no complications. Conscious sedation was performed with the prescribed dosages and duration as above in the presence of an independent trained radiology nurse to assist in the monitoring of the patient. EKG and oximetry remained stable throughout the procedure. CONCLUSION: 1. Angiography confirms occlusion of the left common artery with involvement of the origin of the SFA and profunda. 2. Apparent interval distal embolization to the distal SFA, popliteal artery, and the intraventricula r artery. 3. Excellent angiographic result following pharmacomechanical thrombolysis utilizing AngioJet device and 5 balloon angioplasty of the distal left common femoral artery. 4. Intervention was not performed in the profunda and there is likely residual micro-emboli in the pl dharmesh arch. There is sufficient flow for viability of the left foot, therefore, overnight TPA infusio n was not performed in this patient with suspected metastatic disease. Josias Mena MD on October 01, 2016 at 14:33 Board Certified Radiologist. This report was verified electronically.
[2016-10-01] MEDS: SODIUM CHLOR 0.9% 1000 ML INJ 1,000 ML IV SCH (15:00)
[2016-10-01] MEDS ORDERED: RESP: ALBUTEROL 2.5 MG/IPRATROPIUM 0.5 MG NEB (PRN) NEB (15:00)
[2016-10-01] MEDS ORDERED: GLUCAGON 1 MG/ML VIAL OTHER PRN (15:00)
[2016-10-01] MEDS ORDERED: DEXTROSE 50% IN WATER 50 ML VIAL(D50) IV PRN (15:00)
--- NOTE | 2016-10-01 15:00 | HHI.HP ---
[facility] Service [facility] Primary Care Physician Non-Staff Admission Diagnosis arterial occlusion Diagnoses: (1) Arterial occlusion (2) Urinary tract infection Chief Complaint: Left lower extremity numbness Travel History International Travel<30 Days: No Contact w/Intl Traveler <30 Da: No Traveled to Known Affected Are: No History of Present Illness 61 year-old female with a history of tobacco abuse presented yesterday to the ED for evaluation of an acute onset of left lower extremity numbness and weakness which according to patient persisted intensity she was seen in the ED. CTA aorta run off was ordered and revealed left femoral artery occlusion for which interventional radiology was consulted and patient underwent angioplasty,TPA pulse spray and angiojet thrombectomy. Case was discussed with interventional radiologist. Patient is seen in the [facility] and complains of left lower extremity pain, although she had palpable pulses. 61-year-old female who presents to the emergency Department with onset of numbness and weakness in her left leg that started at around 3:00 this afternoon. She says she intermittently sat on the couch and then tried to walk around hoping it would go away but it hasn't minutes persisted throughout the day prompting her to come to the emergency department at 10:30 this evening. She denies any headache, difficulty speaking or upper extremity weakness. She has no pain in her feet. She had a stroke 3 years ago after which she had some difficulty speaking. She currently takes Plavix. She also has a remote history of uvular cancer. 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 Good result after TPA pulse spray and angiojet thrombectomy. Reported Medications Plavix (Clopidogrel Bisulfate) 75 Mg Tab 75 Mg PO DAILY Allergies: Coded Allergies: Ampicillin (Verified Allergy, Intermediate, Rash, 09/30/16) Uncoded Allergies: AMPICILLIN-RASH (Allergy, Intermediate, Rash, 05/02/09) NKA (Allergy, Unknown, 11/28/02) Family History She denies any family history of GI cancer, hypertension, CAD Social History Alcohol Use: No Tobacco Use: Yes Substance Use: Yes (marijuana occasionally) Physical Exam Vital Signs Vital Signs Date Time Temp Pulse Resp B/P Pulse Ox O2 Delivery O2 Flow Rate FiO2 10/01/16 14:35 72 20 120/82 96 10/01/16 14:05 71 18 120/91 96 10/01/16 13:35 59 18 124/83 98 10/01/16 13:05 65 16 121/81 97 10/01/16 12:35 70 16 118/87 96 10/01/16 12:05 95 18 107/83 95 10/01/16 11:35 79 18 116/90 95 10/01/16 11:20 79 16 115/89 94 10/01/16 11:05 65 18 123/95 65 10/01/16 10:50 97.9 73 18 123/91 97 10/01/16 07:03 72 20 134/72 97 10/01/16 04:08 80 23 133/68 100 Room Air 10/01/16 03:45 77 18 160/77 99 10/01/16 03:32 16 10/01/16 03:00 98 Room Air 10/01/16 02:50 82 18 170/77 97 Room Air 10/01/16 01:50 82 18 171/79 98 Room Air 10/01/16 00:50 97.4 81 18 161/79 98 Room Air 10/01/16 00:20 82 16 171/84 98 Room Air 09/30/16 23:50 82 18 179/81 98 Room Air 09/30/16 23:20 84 18 176/85 98 Room Air 09/30/16 22:50 80 18 180/79 99 Room Air 09/30/16 22:40 78 18 174/79 99 Room Air 09/30/16 22:40 16 100 Room Air 09/30/16 22:30 86 16 192/83 99 Room Air 09/30/16 22:25 97.7 83 18 193/95 100 09/30/16 22:20 100 Room Air Physical Exam GENERAL: Mild acute distress and looks older than his stated age SKIN: No rashes, ecchymoses or lesions. Cool and dry. HEAD: Atraumatic. Normocephalic. No temporal or scalp tenderness. EYES: Pupils equal round and reactive. Extraocular motions intact. No scleral icterus. No injection or drainage. ENT: Nose without bleeding, purulent drainage or septal hematoma. Throat without erythema, tonsillar hypertrophy or exudate. Uvula midline. Airway patent. NECK: Trachea midline. No JVD or lymphadenopathy. Supple, nontender, no meningeal signs. CARDIOVASCULAR: Regular rate and rhythm without murmurs, gallops, or rubs. RESPIRATORY: Clear to auscultation. Breath sounds equal bilaterally. No wheezes , rales, or rhonchi. GASTROINTESTINAL: Abdomen soft, non-tender, nondistended. No hepato-splenomegaly , or palpable masses. No guarding. MUSCULOSKELETAL: Extremities without clubbing, cyanosis, or edema. No joint tenderness, effusion, or edema noted. No calf tenderness. Negative Homans sign bilaterally. NEUROLOGICAL: Awake and alert. Cranial nerves II through XII intact. Motor and sensory grossly within normal limits. Five out of 5 muscle strength in all muscle groups. Normal speech. Laboratory Laboratory Tests Test 09/30/16 09/30/16 10/01/16 10/01/16 22:35 23:15 00:00 01:25 White Blood Count 18.3 Red Blood Count 4.45 Hemoglobin 13.8 Hematocrit 42.1 Mean Corpuscular Volume 94.5 Mean Corpuscular Hemoglobin 30.9 Mean Corpuscular Hemoglobin 32.7 Concent Red Cell Distribution Width 15.6 Platelet Count 849 Mean Platelet Volume 6.9 Neutrophils (%) (Auto) 89.5 Lymphocytes (%) (Auto) 4.7 Monocytes (%) (Auto) 4.6 Eosinophils (%) (Auto) 0.3 Basophils (%) (Auto) 0.9 Neutrophils # (Auto) 16.3 Lymphocytes # (Auto) 0.9 Monocytes # (Auto) 0.8 Eosinophils # (Auto) 0.1 Basophils # (Auto) 0.2 CBC Comment AUTO DIFF Differential Comment AUTO DIFF CONFIRMED Platelet Estimate HIGH Platelet Morphology Comment NORMAL Prothrombin Time 12.0 Prothromb Time International 1.1 Ratio Activated Partial 31.3 Thromboplast Time Sodium Level 131 Potassium Level 3.7 Chloride Level 99 Carbon Dioxide Level 23.1 Anion Gap 9 Blood Urea Nitrogen 23 Creatinine 1.20 Estimat Glomerular Filtration 46 Rate Random Glucose 304 Calcium Level 9.3 Total Bilirubin 0.3 Aspartate Amino Transf 60 (AST/SGOT) Alanine Aminotransferase 87 (ALT/SGPT) Alkaline Phosphatase 337 Total Protein 8.2 Albumin 3.4 Lactic Acid Level 2.8 2.5 Urine Collection Type CATH Urine Color YELLOW Urine Turbidity SLIGHT Urine pH 5.5 Urine Specific [place] 1.019 Urine Protein NEG Urine Glucose (UA) 1000 OR GREATER Urine Ketones NEG Urine Occult Blood SMALL Urine Nitrite POS Urine Bilirubin NEG Urine Leukocyte Esterase NEG Urine RBC 0-3 Urine WBC 3-5 Urine Bacteria MANY Urine Hyaline Casts 3-5 Urine Mucus OCC Microscopic Urinalysis Comment CULTURE INDICATED Test 10/01/16 02:15 White Blood Count 14.9 Red Blood Count 4.13 Hemoglobin 12.9 Hematocrit 39.2 Mean Corpuscular Volume 95.1 Mean Corpuscular Hemoglobin 31.2 Mean Corpuscular Hemoglobin 32.8 Concent Red Cell Distribution Width 16.0 Platelet Count 683 Mean Platelet Volume 6.9 Activated Partial 32.9 Thromboplast Time Date/Time Procedure Status Source Growth 10/01/16 01:25 Aerobic Blood Culture Received Blood Peripheral Pending 10/01/16 01:25 Anaerobic Blood Culture Received Blood Peripheral Pending 10/01/16 00:00 Urine Culture Received Urine Catheterized Urine Pending Result Diagram: 10/01/165 09/30/162234 Imaging Last Impressions Head CT 09/30/162232 Signed Impressions: Service Date/Time: Friday, September 30, 2016 23:18 - CONCLUSION: 1. No bleed or evidence of an acute ischemic event. 2. 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 3. Chronic-appearing sinus disease. Mitch Choi MD Chest X-Ray 09/30/16 0000 Signed Impressions: Service Date/Time: Friday, September 30, 2016 23:39 - CONCLUSION: No acute cardiopulmonary disease demonstrated. Mitch Choi MD Aorta w/Runoff CTA 09/30/16 0000 Signed Impressions: Service Date/Time: Friday, September 30, 2016 23:24 - CONCLUSION: 1. Abnormal examination demonstrating occlusion of the left common femoral artery with thrombus extending to the origin of the profunda and SFA. Additionally, the left runoff vessels are not visualized beyond the proximal calf concerning for distal emboli. 2. Large bilateral adrenal masses and numerous bilobar low density hepatic masses consistent with metastatic disease. 3. Bilateral adnexal prominence/masses, likely ovarian in etiology. This can be further evaluated with ultrasound exam. Differential considerations include prominent ovarian tissue versus ovarian masses, likely metastatic. Overall pattern of the abnormalities in the abdomen is not consistent with ovarian primary. 4. Subcentimeter region of ill-defined decreased density in the spleen may be related to phase of contrast although a splenic mass cannot be excluded. 5. Additional findings include nonobstructing 4 mm left renal calculus. Josias Mena MD Assessment and Plan Problem List: (1) Arterial occlusion ICD Code: I74.9 Status: Acute (2) Ovarian malignant neoplasm ICD Code: C56.9 Status: Acute (3) Urinary tract infection ICD Code: N39.0 Status: Acute (4) Acute renal failure ICD Code: N17.9 Status: Acute (5) IFG (impaired fasting glucose) ICD Code: R73.01 Status: Acute (6) Lactic acidosis ICD Code: E87.2 Status: Acute Assessment and Plan 61 year-old female with Left lower extremity Arterial occlusion Status post angioplasty, TPA pulse spray and angiojet thrombectomy Management per interventional radiology, with whom case was discussed after procedure Parenteral pain management accordingly Continue heparin drip Ovarian malignant neoplasm with possible metastases? CT abdomen noted and review with finding of Large bilateral adrenal masses and numerous bilobar low density hepatic masses consistent with metastatic disease.Bilateral adnexal prominence/masses, likely ovarian in etiology. Check pelvic ultrasound Check tumor markers including CA 125, CEA, AFP, LDH Consult medical and gynecology oncology Urinary tract infection On IV Cipro every 12 hours pending urine culture Lactic acidosis May be due to above infectious process, repeat lactic acid. Treat as in above Acute renal failure Starts gentle IV fluid hydration, monitor BUN and creatinine and avoid all nephrotoxic drugs. Impaired fasting glucose/hyperglycemia- No known history of diabetes type 2, check hemoglobin A1c DVT prophylaxis Heparin Code Status Full code Discussed Condition With Patient, interventional radiologist Physician Certification 2 Midnight Certification Type: Admission for Inpatient Services Order for Inpatient Services The services are ordered in accordance with Medicare regulations or non- Medicare payer requirements, as applicable. In the case of services not specified as inpatient-only, they are appropriately provided as inpatient services in accordance with the 2-midnight benchmark. Estimated LOS (days): 2 days is the estimated time the patient will need to remain in the hospital, assuming treatment plan goals are met and no additional complications. Post-Hospital Plan: Not yet determined Problem Qualifiers (1) Urinary tract infection: Qualified Code: N30.00 - Acute cystitis without hematuria Moe Raphael MD Oct 01, 2016 15:00
[2016-10-01] MEDS: INSULIN ASPART SUPPLEMENTAL SCALE SQ SCH ×2 (16:00→21:00)
[2016-10-01] MEDS: MORPHINE SULFATE 8 MG/ML INJ IV PUSH PRN (17:19)
[2016-10-01 20:08] LABS: APTT (PATIENT) 30.9 SEC (24.3-30.1)
[2016-10-02] VITALS (8 sets, daily range): BP systolic 122–161; BP diastolic 61–70; PULSE 57–74; RESP 16–20; TEMP 96–98.1; O2SAT 92–100
[2016-10-02] MEDS: CIPROFLOXACIN 400 MG PREMIX 200 ML IV SCH ×3 (00:35→23:57)
[2016-10-02] MEDS: SODIUM CHLOR 0.9% 1000 ML INJ 1,000 ML IV SCH (04:15)
[2016-10-02 06:29] LABS: AUTOMATED NEUTROPHIL # 8.8 TH/MM3 (1.8-7.7); BASOPHIL # 0.3 TH/MM3 (0-0.2); BASOPHIL % 2.9 % (0.0-2.0); EOSINOPHIL # 0.3 TH/MM3 (0-0.4); EOSINOPHIL % 2.7 % (0.0-4.0); HEMATOCRIT 32.7 % (35.0-46.0); HEMO FLAGS DIFF FINAL; LYMPH % 11.2 % (9.0-44.0); LYMPHOCYTE # 1.3 TH/MM3 (1.0-4.8); MEAN CELL VOLUME 94.6 FL (80.0-100.0); MEAN CORPUSCULAR HEMOGLOBIN 31.3 PG (27.0-34.0); MEAN CORPUSCULAR HGB CONC 33.1 % (32.0-36.0); MONO % 5.7 % (0.0-8.0); NEUT % 77.5 % (16.0-70.0); PLATELET COUNT 426 TH/MM3 (150-450); RED BLOOD COUNT 3.46 MIL/MM3 (4.00-5.30); WHITE BLOOD COUNT 11.3 TH/MM3 (4.0-11.0)
[2016-10-02 06:47] LABS: APTT (PATIENT) 32.9 SEC (24.3-30.1); INTERNATIONAL NORMALIZED RATIO 1.1 RATIO; PROTHROMBIN TIME - PATIENT 12.7 SEC (9.8-11.6)
[2016-10-02] MEDS: INSULIN ASPART SUPPLEMENTAL SCALE SQ SCH (07:00)
[2016-10-02 07:01] LABS: ANION GAP 7 MEQ/L (5-15); BICARBONATE 22.6 MEQ/L (21.0-32.0); BLOOD UREA NITROGEN 11 MG/DL (7-18); CHLORIDE 108 MEQ/L (98-107); GLOMERULAR FILTRATION RATE 76 ML/MIN (>89); POTASSIUM 3.6 MEQ/L (3.5-5.1); SODIUM (NA) 138 MEQ/L (136-145)
[2016-10-02 07:02] LABS: HDL CHOLESTEROL 41.2 MG/DL (40.0-60.0); LDL CHOLESTEROL 91 MG/DL (0-99)
[2016-10-02] MEDS: SODIUM CHLORIDE 0.9% FLUSH 10 ML FLUSH IV FLUSH SCH ×2 (09:00→20:49)
--- NOTE | 2016-10-02 09:14 | MB ---
cc: ESTHER GAGNON RUBY ANNE E. M.D. DATE OF CONSULTATION 10/01/2016 DATE OF [address] Esther Gagnon CHIEF COMPLAINT Dr. Gagnon requested consultation for Mrs. Joshi regarding suspected metastatic cancer. HISTORY OF PRESENT ILLNESS Mrs. Joshi is a 61-year-old woman previous patient of Dr. Leander Chu. 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 She had definitive concurrent chemotherapy and radiation. She was followed by Dr. Chu. She remained disease free. She has chronic problems with speaking, dry mouth and sinus issues related to her previous treatment. She reports needing a PEG tube. She did not require a tracheostomy. She continues to smoke. She has no plans on quitting as yet. She had the acute onset of left lower extremity numbness and weakness. A CT angiogram of the aorta with runoff was performed. It showed occlusion of the left common femoral artery with thrombus extending to the origin of the profunda and superior femoral artery. She underwent local thrombolytic therapy. She is in the ICU for thrombolytic therapy with an excellent response. She has resolution of the pain and swelling symptoms of the left leg. She has pulses bilaterally. Additional findings include bilateral adrenal masses, numerous by lobar low density hepatic masses consistent with metastatic disease and bilateral adnexal masses suspected to be ovarian etiology. There is also an ill-defined lesion in the spleen. For this reason, Hematology/Oncology is consulted. REVIEW OF SYSTEMS She denies any fevers, chills or night sweats. She reports she has always been thin. She is a chronic smoker. She drinks alcohol rarely. She reports a gradual weight loss over years. She has had a decrease in appetite, but no taste for her food. This in part may be related to her previous treatment of the head and neck cancer. LABORATORY DATA Laboratory evaluation shows mild leukocytosis and reactive thrombocytosis. Renal function shows a mild renal insufficiency, liver function elevation. She denies any overt symptoms. She denies a history of hepatitis. PAST MEDICAL HISTORY 1. Chronic tobacco use 2. Reactive thrombocytosis 3. Chronic dry mouth 4. Prior uvular cancer 5. CVA 6. Nephrolithiasis PAST SURGICAL HISTORY 1. Head and neck surgery/biopsy 2. TPA FAMILY HISTORY Mother at age 56 of an aneurysm. Father had prostate cancer, in his 80s. SOCIAL HISTORY She is , uses marijuana occasionally, smokes actively, drinks rarely. ALLERGIES AMPICILLIN CURRENT MEDICATIONS 1. Morphine sulfate 2. DuoNebs 3. Cipro PHYSICAL EXAMINATION VITAL SIGNS: Temperature 98.5, heart rate 74, respiratory rate 16, blood pressure 183/83, saturation 94%. Ms. Joshi is a cachectic-appearing woman with bitemporal wasting. She looks thin and tanned. HEAD, EYES, EARS, NOSE, AND THROAT: Her pupils are round and reactive. Oropharynx is dry. She is edentulous. NECK: Supple. LUNGS: Clear to auscultation. CARDIOVASCULAR: Exam reveals a normal rate, rhythm. ABDOMEN: Benign. EXTREMITIES: Lower extremities with good pulses. She has thin legs with mild edema of the left relative to the right. LABORATORY DATA Significant for lactic acid 2.5, BUN of 23, creatinine 1.20, LDH is 504. This is after her thrombolytic therapy. AST and ALT is elevated. White blood cell count 14.9, hemoglobin 12.9, platelet count 683. ASSESSMENT/PLAN Ms. Joshi is a 61-year-old woman with a history of head and neck cancer in 2000. She has no evidence of recurrent disease from that and has been disease free for many years. She comes in with acute arterial events. She has no known history of peripheral vascular disease. She is found on CT angiogram to have bilateral ovarian lesions, adrenal lesions and multiple hepatic metastatic disease. We discussed the concern for metastatic cancer. Ovarian primary is considered. Tumor markers have been ordered. I will check a hepatitis profile since her liver functions are elevated. We discussed the risks and benefits of biopsy to establish a diagnosis. We will need to coordinate this in between her anticoagulant therapy. She will need anticoagulant therapy or at least antiplatelet therapy after her thrombolytic therapy. We may be able to interrupt her anticoagulation for a CT-guided biopsy in the liver to establish a diagnosis. Further recommendations depend on the biopsy results. Staging evaluation, CT/PET scan could be coordinated on an outpatient basis. If ovarian malignancy is identified or gynecologic malignancy, a SIGNALS OFFICER oncologist will be involved. No specific therapy is required for the reactive thrombocytosis. We will continue to follow this on an outpatient basis. Her last CBC was from 2002, her white blood cell count and platelet count were normal. I am unable to exclude reactive thrombocytosis versus that of essential thrombocythemia which would produce thrombotic event associated with elevated platelet count. Her questions were answered to her satisfaction. MD JAMES Ross/HARRY /9:05 PM /9:03 AM
--- NOTE | 2016-10-02 10:16 | PD.ONC.PN ---
Subjective Subjective Remarks Afebrile overnight. Patient resting in bed, just finished eating breakfast. Denies pain at present. Objective Data Date Time Temp Pulse Resp B/P Pulse Ox O2 Delivery O2 Flow Rate FiO2 10/02/16 09:02 98 Nasal Cannula 2.00 10/02/16 07:00 98.0 59 16 127/63 98 10/02/16 07:00 98 Nasal Cannula 4.00 10/02/16 07:00 59 10/02/16 04:00 64 16 126/70 92 10/02/16 04:00 64 10/02/16 04:00 97 Nasal Cannula 4.00 10/02/16 00:00 60 10/02/16 00:00 98.0 61 20 122/64 97 10/02/16 00:00 97 Nasal Cannula 4.00 10/01/16 22:53 Nasal Cannula 4.00 10/01/16 20:00 68 10/01/16 20:00 98.0 67 16 117/63 96 10/01/16 20:00 96 Nasal Cannula 4.00 10/01/16 16:17 92 21 10/01/16 16:17 97 Nasal Cannula 2.00 10/01/16 15:30 74 10/01/16 15:10 98.5 71 16 181/83 94 10/01/16 14:35 72 20 120/82 96 10/01/16 14:05 71 18 120/91 96 10/01/16 13:35 59 18 124/83 98 10/01/16 13:05 65 16 121/81 97 10/01/16 12:35 70 16 118/87 96 10/01/16 12:05 95 18 107/83 95 10/01/16 11:35 79 18 116/90 95 10/01/16 11:20 79 16 115/89 94 10/01/16 11:05 65 18 123/95 65 10/01/16 10:50 97.9 73 18 123/91 97 10/02/16 10/02/16 10/02/16 07:00 15:00 23:00 Intake Total 1593 ml 490 ml Output Total 400 ml 200 ml Balance 1193 ml 290 ml Result Diagram: 10/02/16 0616 10/02/16 0616 Laboratory Results Laboratory Tests Test 10/01/16 10/02/16 19:11 06:16 Activated Partial 30.9 SEC 32.9 SEC Thromboplast Time Lactate Dehydrogenase 504 U/L White Blood Count 11.3 TH/MM3 Red Blood Count 3.46 MIL/MM3 Hemoglobin 10.8 GM/DL Hematocrit 32.7 % Mean Corpuscular Volume 94.6 FL Mean Corpuscular Hemoglobin 31.3 PG Mean Corpuscular Hemoglobin 33.1 % Concent Red Cell Distribution Width 16.0 % Platelet Count 426 TH/MM3 Mean Platelet Volume 7.2 FL Neutrophils (%) (Auto) 77.5 % Lymphocytes (%) (Auto) 11.2 % Monocytes (%) (Auto) 5.7 % Eosinophils (%) (Auto) 2.7 % Basophils (%) (Auto) 2.9 % Neutrophils # (Auto) 8.8 TH/MM3 Lymphocytes # (Auto) 1.3 TH/MM3 Monocytes # (Auto) 0.6 TH/MM3 Eosinophils # (Auto) 0.3 TH/MM3 Basophils # (Auto) 0.3 TH/MM3 CBC Comment DIFF FINAL Differential Comment Prothrombin Time 12.7 SEC Prothromb Time International 1.1 RATIO Ratio Sodium Level 138 MEQ/L Potassium Level 3.6 MEQ/L Chloride Level 108 MEQ/L Carbon Dioxide Level 22.6 MEQ/L Anion Gap 7 MEQ/L Blood Urea Nitrogen 11 MG/DL Creatinine 0.78 MG/DL Estimat Glomerular Filtration 76 ML/MIN Rate Random Glucose 103 MG/DL Calcium Level 8.1 MG/DL Triglycerides Level 81 MG/DL Cholesterol Level 148 MG/DL LDL Cholesterol 91 MG/DL HDL Cholesterol 41.2 MG/DL Cholesterol/HDL Ratio 3.59 RATIO Tumor Marker Alpha Fetoprotein 2.5 NG/ML Carcinoembryonic Antigen 4.9 NG/ML CA 125 Antigen 13.5 U/ML Culture Results Microbiology Date/Time Procedure Status Source Growth 10/01/16 00:00 Urine Culture Received Urine Catheterized Urine Pending 10/01/16 01:20 Aerobic Blood Culture Received Blood Peripheral Pending 10/01/16 01:20 Anaerobic Blood Culture Received Blood Peripheral Pending 10/01/16 01:25 Aerobic Blood Culture Received Blood Peripheral Pending 10/01/16 01:25 Anaerobic Blood Culture Received Blood Peripheral Pending Administered Medications Medications (Trade) Dose Ordered Sig/Westley Route PRN Reason Start Time Stop Time Status Last Admin Dose Admin Sodium Chloride 2 ml 2 ml BID IV FLUSH 10/01/16 09:00 10/02/16 09:00 Ciprofloxacin/ Dextrose (Cipro 400 Mg Premix) 200 ml @ 200 mls/hr Q12H IV 10/01/16 12:00 10/02/16 00:35 Morphine Sulfate 1 mg 1 mg Q6H PRN IV PUSH pain>3 10/01/16 17:15 10/01/16 17:19 Sodium Chloride (NS 1000 ml Inj) 1,000 ml @ 84 mls/hr [id number] IV 10/01/16 15:00 10/02/16 04:15 Objective Remarks GENERAL: Thin pleasant female upright in bed in nad. SKIN: Warm and dry. HEAD: Normocephalic. EYES: No scleral icterus. No injection or drainage. NECK: Supple, trachea midline. CARDIOVASCULAR: Regular rate and rhythm RESPIRATORY: Breath sounds equal bilaterally. No accessory muscle use. GASTROINTESTINAL: Abdomen soft, non-tender, nondistended. EXTREMITIES: No cyanosis. distal extremities are warm and well perfused with pulses palpable. NEUROLOGICAL: No obvious focal deficit. Awake, alert, and oriented x3. Assessment/Plan Problem List: (1) Arterial occlusion Status: Acute Plan: CTA aorta with runoff-->++ occlusion of the left common femoral artery with thrombus extending to the origin of the profunda and superior femoral artery. --s/p local thrombolytic therapy on 10.01 --will need anticoagulant therapy or at least antiplatelet therapy after her thrombolytic therapy. (2) Metastatic disease Status: Acute Plan: CTA--> bilateral adrenal masses, numerous by lobar low density hepatic masses consistent with metastatic disease and bilateral adnexal masses suspected to be ovarian etiology. There is also an ill-defined lesion in the spleen. tumor markers WNL --CT guided biopsy ordered, on hold as patient just had tpa. (3) Reactive thrombocytosis Status: Acute Plan: --no specific therapy is required for the reactive thrombocytosis. --will continue to follow on an outpatient basis. --in last CBC was from 2002, her white blood cell count and platelet count were normal. 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 h/o Chronic tobacco use Reactive thrombocytosis Chronic dry mouth Prior uvular cancer CVA Nephrolithiasis Plan 1. await biopsy 2. fax fs to new patient referrals for outpatient follow up in 1-2 weeks 3. resume heparin gtt 4. check carotid doppler and 2D echo for source of emboli Attending Statement The exam, history, and the medical decision-making described in the above note were completed with the assistance of the mid-level provider. I reviewed and agree with the findings presented. I attest that I had a [id number] encounter with the patient on the same day, and personally performed and documented my assessment and findings in the medical record. Pt seen and examined in evening transfer to Oncology floor. Discussed case with IR. Pending on Plavix test, biopsy could proceed tomorrow 10/03 (last dose plavix ) Pt state she was compliant with her Plavix. Previously on ASA and Plavix and stopped ASA 7 years ago. Evaluation for thromboembolic source continue. Biopsy needed to determine nature of metastatic cancer, all tumor markers normal. Nieves Lopez Oct 02, 2016 10:16 Marine Ventura MD Oct 02, 2016 23:59
[2016-10-02] MEDS ORDERED: TEMAZEPAM 15 MG CAP PO PRN (12:30)
--- NOTE | 2016-10-02 12:31 | HHI.PR ---
Subjective Remarks Follow-up left lower extremity arterial occlusion/UTI/metastasis disease 10/02/16-patient seen and examined, denies any left lower extremity pain. Plan for CT guided liver biopsy today. Currently afebrile. Patient refused Ensure Objective Vitals Vital Signs Date Time Temp Pulse Resp B/P Pulse Ox O2 Delivery O2 Flow Rate FiO2 10/02/16 12:00 96.6 74 20 161/69 100 10/02/16 09:02 98 Nasal Cannula 2.00 10/02/16 07:00 98.0 59 16 127/63 98 10/02/16 07:00 98 Nasal Cannula 4.00 10/02/16 07:00 59 10/02/16 04:00 64 16 126/70 92 10/02/16 04:00 64 10/02/16 04:00 97 Nasal Cannula 4.00 10/02/16 00:00 60 10/02/16 00:00 98.0 61 20 122/64 97 10/02/16 00:00 97 Nasal Cannula 4.00 10/01/16 22:53 Nasal Cannula 4.00 10/01/16 20:00 68 10/01/16 20:00 98.0 67 16 117/63 96 10/01/16 20:00 96 Nasal Cannula 4.00 10/01/16 16:17 92 21 10/01/16 16:17 97 Nasal Cannula 2.00 10/01/16 15:30 74 10/01/16 15:10 98.5 71 16 181/83 94 10/01/16 14:35 72 20 120/82 96 10/01/16 14:05 71 18 120/91 96 10/01/16 13:35 59 18 124/83 98 10/01/16 13:05 65 16 121/81 97 10/01/16 12:35 70 16 118/87 96 I/O 10/01/16 10/01/16 10/01/16 10/02/16 10/02/16 10/02/16 07:00 15:00 23:00 07:00 15:00 23:00 Intake Total 1700 ml 274 ml 1593 ml 490 ml Output Total 400 ml 400 ml 200 ml Balance 1700 ml -126 ml 1193 ml 290 ml Intake Oral 120 ml 440 ml 120 ml IV Total 1700 ml 154 ml 1153 ml 370 ml Output Urine Total 350 ml 400 ml 200 ml Emesis 50 ml # Voids 4 2 1 # Bowel Movements 0 0 Result Diagram: 10/02/16 0616 10/02/16 0616 Imaging Last Impressions Lower Extremity Angiography 10/01/16 0000 Signed Impressions: Service Date/Time: Saturday, October 01, 2016 08:38 - CONCLUSION: 1. Angiography confirms occlusion of the left common artery with involvement of the origin of the SFA and profunda. 2. Apparent interval distal embolization to the distal SFA, popliteal artery, and the intraventricular artery. 3. Excellent angiographic result following pharmacomechanical thrombolysis utilizing AngioJet device and 5 balloon angioplasty of the distal left common femoral artery. 4. Intervention was not performed in the profunda and there is likely residual micro-emboli in the plantar arch. There is sufficient flow for viability of the left foot, therefore, overnight TPA infusion was not performed in this patient with suspected metastatic disease. Josias Mena MD Head CT 09/30/16 2233 Signed Impressions: Service Date/Time: Friday, September 30, 2016 23:18 - CONCLUSION: 1. No bleed or evidence of an acute ischemic event. 2. 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 3. Chronic-appearing sinus disease. Mitch Choi MD Chest X-Ray 09/30/16 0000 Signed Impressions: Service Date/Time: Friday, September 30, 2016 23:39 - CONCLUSION: No acute cardiopulmonary disease demonstrated. Mitch Choi MD Aorta w/Runoff CTA 09/30/16 0000 Signed Impressions: Service Date/Time: Friday, September 30, 2016 23:24 - CONCLUSION: 1. Abnormal examination demonstrating occlusion of the left common femoral artery with thrombus extending to the origin of the profunda and SFA. Additionally, the left runoff vessels are not visualized beyond the proximal calf concerning for distal emboli. 2. Large bilateral adrenal masses and numerous bilobar low density hepatic masses consistent with metastatic disease. 3. Bilateral adnexal prominence/masses, likely ovarian in etiology. This can be further evaluated with ultrasound exam. Differential considerations include prominent ovarian tissue versus ovarian masses, likely metastatic. Overall pattern of the abnormalities in the abdomen is not consistent with ovarian primary. 4. Subcentimeter region of ill-defined decreased density in the spleen may be related to phase of contrast although a splenic mass cannot be excluded. 5. Additional findings include nonobstructing 4 mm left renal calculus. Josias Mena MD Objective Remarks GENERAL: NAD SKIN: Warm and dry. HEAD: Normocephalic. EYES: No scleral icterus. No injection or drainage. NECK: Supple, trachea midline. No JVD or lymphadenopathy. CARDIOVASCULAR: Regular rate and rhythm without murmurs, gallops, or rubs. RESPIRATORY: Breath sounds equal bilaterally. No accessory muscle use. GASTROINTESTINAL: Abdomen soft, non-tender, nondistended. MUSCULOSKELETAL: No cyanosis, or edema. BACK: Nontender without obvious deformity. No CVA tenderness. A/P Problem List: (1) Arterial occlusion ICD Code: I74.9 Status: Acute (2) Ovarian malignant neoplasm ICD Code: C56.9 Status: Acute (3) Urinary tract infection ICD Code: N39.0 Status: Acute (4) Acute renal failure ICD Code: N17.9 Status: Acute (5) IFG (impaired fasting glucose) ICD Code: R73.01 Status: Acute (6) Lactic acidosis ICD Code: E87.2 Status: Acute (7) Metastatic disease ICD Code: C79.9 Status: Acute Assessment and Plan 61 year-old female with Ovarian malignant neoplasm with possible metastases? CT abdomen/pelvics with finding of Large bilateral adrenal masses and numerous bilobar low density hepatic masses consistent with metastatic disease.Bilateral adnexal prominence/masses, likely ovarian in etiology. LDH high otherwise other tubal marker including CA 125, CEA, AFP within normal limit limit Plan for CT-guided liver biopsy today 10/02/16 Appreciate input from oncology Left lower extremity Arterial occlusion Status post angioplasty, TPA pulse spray and angiojet thrombectomy Management per interventional radiology Parenteral pain management accordingly On heparin drip Urinary tract infection On IV Cipro every 12 hours pending urine culture Lactic acidosis May be due to above infectious process, repeat lactic acid. Treat as in above Acute renal failure Resolved with gentle IV fluid hydration, monitor BUN and creatinine and avoid all nephrotoxic drugs. Impaired fasting glucose/hyperglycemia Resolved No known history of diabetes type 2, hemoglobin A1c pending DVT prophylaxis Heparin Discharge Planning Not medically clear for discharge as workup in progress to rule out metastases disease Problem Qualifiers (1) Urinary tract infection: Qualified Code: N30.00 - Acute cystitis without hematuria Moe Raphael MD Oct 02, 2016 12:31
--- NOTE | 2016-10-02 12:48 | HHI.PR ---
Addendum to Inpatient Note Addendum Reason: Additional Documentation Additional Information CT-guided liver biopsy has been postponed until 10/06/16 as patient with recent treatment with Plavix Moe Raphael MD Oct 02, 2016 12:48
[2016-10-02 13:55] LABS: HEMATOCRIT 33.1 % (35.0-46.0); MEAN CELL VOLUME 93.7 FL (80.0-100.0); MEAN CORPUSCULAR HEMOGLOBIN 31.8 PG (27.0-34.0); MEAN CORPUSCULAR HGB CONC 33.9 % (32.0-36.0); PLATELET COUNT 476 TH/MM3 (150-450); RED BLOOD COUNT 3.54 MIL/MM3 (4.00-5.30); RED CELL DISTRIBUTION WIDTH 15.9 % (11.6-17.2); REVIEW FLAG FINAL; WHITE BLOOD COUNT 10.4 TH/MM3 (4.0-11.0)
[2016-10-02 14:08] LABS: APTT (PATIENT) 31.5 SEC (24.3-30.1); INTERNATIONAL NORMALIZED RATIO 1.1 RATIO; PROTHROMBIN TIME - PATIENT 12.5 SEC (9.8-11.6)
[2016-10-02] MEDS: HEPARIN-D5W INJ 250 ML IV SCH (14:14)
--- NOTE | 2016-10-02 14:35 | RADRPT ---
EXAM DATE/TIME: 10/02/2016 12:27 [facility] COMPARISON: No previous studies available for comparison. INDICATIONS : Embolus. MEDICAL HISTORY : CVA. Uvula cancer. Anitcoagulant therapy. SURGICAL HISTORY : Tubal ligation. Uvula surgery. Breast implants. ENCOUNTER: Initial ACUITY: 1 day PAIN SCORE: 0/10 LOCATION: Bilateral neck PEAK SYSTOLIC VELOCITIES (cm/sec): ICA/CCA RATIO: Right: 0.8 Left: 0 ICA: Right: 114 Left: 0 CCA: Right: 569 Left: 0 ECA: Right: 182 Left: 0 VERTEBRAL: Right: 51 antegrade Left: 47 antegrade Elevated flow velocities and ICA/CCA ratios have been found to correlate with increased degrees of vessel stenosis, calculated as percentage of diameter relative to a normal segment of distal ICA/CCA FINDINGS: RIGHT CAROTID: Scattered calcified plaque throughout the bulb and proximal ICA. No significant stenosis is visualize d. The waveforms are within normal limits. LEFT CAROTID: Complete occlusion of the common carotid, extracranial internal carotid, and external carotid arterie s. VERTEBRAL ARTERIES: Antegrade flow is seen in both vertebral arteries. MISCELLANEOUS: None. CONCLUSION: 1. Complete occlusion of the entire left carotid. 2. High-grade stenosis involving the proximal common carotid artery on the right. Consider CTA of the carotid arteries to further evaluate. 3. Antegrade flow involving both vertebral arteries. Aryan Blanco Jr., MD on October 02, 2016 at 14:29 Board Certified Radiologist. This report was verified electronically.
[2016-10-02 15:57] LABS: P2Y12 REACTION UNITS (PRU) 212 PRU (194-418)
[2016-10-02 17:52] LABS: HEMOGLOBIN A1a 1.1 %; HEMOGLOBIN Ao 84.4 %
[2016-10-02] MEDS: MORPHINE SULFATE 8 MG/ML INJ IV PUSH PRN (20:49)
[2016-10-03] VITALS (8 sets, daily range): BP systolic 101–145; BP diastolic 47–65; PULSE 61–70; RESP 16–18; TEMP 95.4–98.2; O2SAT 97–100
[2016-10-03] MEDS: MORPHINE SULFATE 8 MG/ML INJ IV PUSH PRN (02:13)
--- NOTE | 2016-10-03 09:59 | HHI.PR ---
Subjective Remarks Follow-up left lower extremity arterial occlusion/UTI/metastasis disease. Denies foot pain. States she was taking Plavix 2/2 CVA and has occluded carotid. Discussed with RN Objective Vitals Vital Signs Date Time Temp Pulse Resp B/P Pulse Ox O2 Delivery O2 Flow Rate FiO2 10/03/16 08:00 96.1 67 17 145/65 100 10/03/16 04:00 95.4 61 16 102/47 100 10/03/16 02:31 16 10/03/16 00:00 96.2 62 16 101/55 98 10/02/16 20:59 57 10/02/16 20:59 Nasal Cannula 2.00 21 10/02/16 20:59 60 10/02/16 20:59 69 10/02/16 20:00 98.1 69 16 129/61 100 10/02/16 16:00 96.0 69 20 132/61 100 10/02/16 12:00 96.6 74 20 161/69 100 10/02/16 12:00 69 10/02/16 12:00 96 2.00 I/O 10/02/16 10/02/16 10/02/16 10/03/16 10/03/16 10/03/16 07:00 15:00 23:00 07:00 15:00 23:00 Intake Total 1593 ml 490 ml 950 ml Output Total 400 ml 200 ml Balance 1193 ml 290 ml 950 ml Intake Oral 440 ml 120 ml 950 ml IV Total 1153 ml 370 ml Output Urine Total 400 ml 200 ml # Voids 2 1 1 # Bowel Movements 0 Result Diagram: 10/02/16 1320 10/02/16 0616 Imaging Last Impressions Carotid Artery Ultrasound 10/02/16 0000 Signed Impressions: Service Date/Time: September 12:27 - CONCLUSION: 1. Complete occlusion of the entire left carotid. 2. High-grade stenosis involving the proximal common carotid artery on the right. Consider CTA of the carotid arteries to further evaluate. 3. Antegrade flow involving both vertebral arteries. Aryan Blanco Jr., MD Lower Extremity Angiography 10/01/16 0000 Signed Impressions: Service Date/Time: Saturday, October 01, 2016 08:38 - CONCLUSION: 1. Angiography confirms occlusion of the left common artery with involvement of the origin of the SFA and profunda. 2. Apparent interval distal embolization to the distal SFA, popliteal artery, and the intraventricular artery. 3. Excellent angiographic result following pharmacomechanical thrombolysis utilizing AngioJet device and 5 balloon angioplasty of the distal left common femoral artery. 4. Intervention was not performed in the profunda and there is likely residual micro-emboli in the plantar arch. There is sufficient flow for viability of the left foot, therefore, overnight TPA infusion was not performed in this patient with suspected metastatic disease. Josias Mena MD Head CT 09/30/16 2233 Signed Impressions: Service Date/Time: Friday, September 30, 2016 23:18 - CONCLUSION: 1. No bleed or evidence of an acute ischemic event. 2. 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 3. Chronic-appearing sinus disease. Mitch Choi MD Chest X-Ray 09/30/16 0000 Signed Impressions: Service Date/Time: Friday, September 30, 2016 23:39 - CONCLUSION: No acute cardiopulmonary disease demonstrated. Mitch Choi MD Aorta w/Runoff CTA 09/30/16 0000 Signed Impressions: Service Date/Time: Friday, September 30, 2016 23:24 - CONCLUSION: 1. Abnormal examination demonstrating occlusion of the left common femoral artery with thrombus extending to the origin of the profunda and SFA. Additionally, the left runoff vessels are not visualized beyond the proximal calf concerning for distal emboli. 2. Large bilateral adrenal masses and numerous bilobar low density hepatic masses consistent with metastatic disease. 3. Bilateral adnexal prominence/masses, likely ovarian in etiology. This can be further evaluated with ultrasound exam. Differential considerations include prominent ovarian tissue versus ovarian masses, likely metastatic. Overall pattern of the abnormalities in the abdomen is not consistent with ovarian primary. 4. Subcentimeter region of ill-defined decreased density in the spleen may be related to phase of contrast although a splenic mass cannot be excluded. 5. Additional findings include nonobstructing 4 mm left renal calculus. Josias Mena MD Objective Remarks GENERAL: NAD, well-developed, asthenic SKIN: Warm and dry. HEAD: Normocephalic. Pupils reactive to light EYES: No scleral icterus. No injection or drainage. NECK: Supple, trachea midline. No JVD or lymphadenopathy. CARDIOVASCULAR: Regular rate and rhythm without murmurs, gallops, or rubs. RESPIRATORY: Breath sounds equal bilaterally. No accessory muscle use. GASTROINTESTINAL: Abdomen soft, non-tender, nondistended. MUSCULOSKELETAL: No cyanosis, or edema. BACK: Nontender without obvious deformity. No CVA tenderness. Procedures TPA and thrombectomy A/P Problem List: (1) Arterial occlusion ICD Code: I74.9 Status: Acute (2) Ovarian malignant neoplasm ICD Code: C56.9 Status: Acute (3) Urinary tract infection ICD Code: N39.0 Status: Acute (4) Acute renal failure ICD Code: N17.9 Status: Acute (5) IFG (impaired fasting glucose) ICD Code: R73.01 Status: Acute (6) Metastatic disease ICD Code: C79.9 Status: Acute Assessment and Plan 61 year-old female with Ovarian malignant neoplasm with possible metastases? CT abdomen/pelvics with finding of Large bilateral adrenal masses and numerous bilobar low density hepatic masses consistent with metastatic disease.Bilateral adnexal prominence/masses, likely ovarian in etiology. LDH high otherwise other tubal marker including CA 125, CEA, AFP within normal limit limit Plan for CT-guided liver biopsy postpone to Thursday because of Plavix which is currently on hold Appreciate input from oncology Left lower extremity Arterial occlusion Status post angioplasty, TPA pulse spray and angiojet thrombectomy Management per interventional radiology Parenteral pain management accordingly On heparin drip Continue to look for thromboembolic source. Echocardiogram pending. Abnormal carotid sonogram obtain CTA Urinary tract infection On IV Cipro every 12 hours urine culture shows Escherichia coli resistant to Cipro change to Bactrim Acute renal failure Resolved with gentle IV fluid hydration, monitor BUN and creatinine and avoid all nephrotoxic drugs. Impaired fasting glucose/hyperglycemia Resolved No known history of diabetes type 2, hemoglobin A1c 6.2 DVT prophylaxis Heparin Discharge Planning Not stable for discharge Problem Qualifiers (1) Urinary tract infection: Qualified Code: N30.00 - Acute cystitis without hematuria Danyel Griffin MD Oct 03, 2016 09:59
[2016-10-03] MEDS ORDERED: ACETAMINOPHEN/HYDROcodone 325 MG/5 MG TAB PO PRN (10:00)
[2016-10-03 11:16] LABS: APTT (PATIENT) 42.2 SEC (24.3-30.1)
[2016-10-03] MEDS: CIPROFLOXACIN 400 MG PREMIX 200 ML IV SCH (12:28)
[2016-10-03] MEDS: SODIUM CHLORIDE 0.9% FLUSH 10 ML FLUSH IV FLUSH SCH ×2 (12:32→22:44)
--- NOTE | 2016-10-03 13:23 | ECHRPT ---
Indication: Chest pain, unspecified CONCLUSIONS Normal left ventricular size. Wall thickness is normal. The left ventricular systolic function is mildly reduced with an estimated ejection fraction in the range of 45- 50%. Trace mitral valve regurgitation. Hcbsdcye-ha-[id number] aortic valve regurgitation. The estimated pulmonary arterial pressure is 26 mmHg. BP: 161 / 69 HR: 74 Rhythm: Other MEASUREMENTS (Male / Female) Normal Values Technical Quality:Technically difficult study 2D ECHO LV Diastolic Diameter PLAX 4.0 cm 4.2 - 5.9 / 3.9 - 5.3 cm LV Systolic Diameter PLAX 3.3 cm IVS Diastolic Thickness 0.7 cm 0.6 - 1.0 / 0.6 - 0.9 cm LVPW Diastolic Thickness 0.6 cm 0.6 - 1.0 / 0.6 - 0.9 cm LV Relative Wall Thickness 0.3 RV Internal Dim ED PLAX 1.9 cm LA Systolic Diameter LX 2.8 cm 3.0 - 4.0 / 2.7 - 3.8 cm DOPPLER AV Peak Velocity 176.0 cm/s AV Peak Gradient 12.4 mmHg LVOT Peak Velocity 126.0 cm/s LVOT Peak Gradient 6.4 mmHg Mitral E Point Velocity 48.4 cm/s Mitral A Point Velocity 66.6 cm/s Mitral E to A Ratio 0.7 TR Peak Velocity 227.0 cm/s TR Peak Gradient 20.6 mmHg FINDINGS LEFT VENTRICLE Normal left ventricular size. Wall thickness is normal. The left ventricular systolic function is mildly reduced with an estimated ejection fraction in the range of 45- 50%. There is hypokinesis with distinct regional wall motion abnormalities. There is a possible left ventricular apical mobile thrombus noted. RIGHT VENTRICLE Normal right ventricular size and systolic function. LEFT ATRIUM The left atrial size is normal. RIGHT ATRIUM The right atrial size is normal. ATRIAL SEPTUM Normal atrial septal thickness without atrial level shunting by limited color doppler interrogation. AORTA The aortic root and proximal ascending aorta are normal in size on limited imaging. MITRAL VALVE Trace mitral valve regurgitation. AORTIC VALVE Egeexksy-gp-eyutpr aortic valve regurgitation. TRICUSPID VALVE The estimated pulmonary arterial pressure is 26 mmHg. PULMONARY VALVE The pulmonary valve is not well visualized. VESSELS The inferior vena cava is normal in size. PERICARDIUM No pericardial effusion. Gen Krishnan MD (Electronically Signed) Final Date:03 October 2016 13:22
--- NOTE | 2016-10-03 13:52 | PD.ONC.PN ---
Subjective Subjective Remarks Afebrile overnight. Patient resting in bed in nad. Son at bedside. Eating lunch. Feeling well. Objective Data Date Time Temp Pulse Resp B/P Pulse Ox O2 Delivery O2 Flow Rate FiO2 10/03/16 12:00 96.7 70 18 117/57 98 10/03/16 08:00 96.1 67 17 145/65 100 10/03/16 04:00 95.4 61 16 102/47 100 10/03/16 02:31 16 10/03/16 00:00 96.2 62 16 101/55 98 10/02/16 20:59 57 10/02/16 20:59 Nasal Cannula 2.00 21 10/02/16 20:59 60 10/02/16 20:59 69 10/02/16 20:00 98.1 69 16 129/61 100 10/02/16 16:00 96.0 69 20 132/61 100 Result Diagram: 10/02/16 1320 10/02/16 0616 Laboratory Results Laboratory Tests Test 10/02/16 10/02/16 10/02/16 10/03/16 14:56 20:34 21:29 09:56 Platelet Function P2Y12 React 212 PRU Units Activated Partial 38.0 SEC 39.0 SEC 42.2 SEC Thromboplast Time Culture Results Microbiology Date/Time Procedure Status Source Growth 10/01/16 00:00 Urine Culture - Final Complete Urine Catheterized Urine Escherichia Coli 10/01/16 01:20 Aerobic Blood Culture - Preliminary Resulted Blood Peripheral NO GROWTH IN 2 DAYS 10/01/16 01:20 Anaerobic Blood Culture - Preliminary Resulted Blood Peripheral NO GROWTH IN 2 DAYS 10/01/16 01:25 Aerobic Blood Culture - Preliminary Resulted Blood Peripheral NO GROWTH IN 2 DAYS 10/01/16 01:25 Anaerobic Blood Culture - Preliminary Resulted Blood Peripheral NO GROWTH IN 2 DAYS Administered Medications Medications (Trade) Dose Ordered Sig/Westley Route PRN Reason Start Time Stop Time Status Last Admin Dose Admin Sodium Chloride 2 ml 2 ml BID IV FLUSH 10/01/16 09:00 10/03/16 12:32 Ciprofloxacin/ Dextrose (Cipro 400 Mg Premix) 200 ml @ 200 mls/hr Q12H IV 10/01/16 12:00 10/03/16 12:28 Morphine Sulfate 1 mg 1 mg Q6H PRN IV PUSH breakthru pain 10/01/16 17:15 10/03/16 02:13 Heparin Sodium/ Dextrose (Heparin-D5W Inj) 250 ml @ 0 mls/hr TITRATE IV 10/02/16 12:30 10/02/16 14:14 Objective Remarks GENERAL: Thin pleasant female sitting up in bed eating lunch. SKIN: Warm and dry. bandage right groin is c/d/i HEAD: Normocephalic. EYES: No scleral icterus. No injection or drainage. NECK: Supple, trachea midline. CARDIOVASCULAR: Regular rate and rhythm RESPIRATORY: Breath sounds equal bilaterally. No accessory muscle use. GASTROINTESTINAL: Abdomen soft, non-tender, nondistended. EXTREMITIES: No cyanosis. dorsalis pedis pulses palpable bilaterally NEUROLOGICAL: awake and alert, normal speech. moving all extremities. Assessment/Plan Problem List: (1) Arterial occlusion Status: Acute Plan: CTA aorta with runoff-->++ occlusion of the left common femoral artery with thrombus extending to the origin of the profunda and superior femoral artery. --s/p local thrombolytic therapy on 10.01 --will need anticoagulant therapy or at least antiplatelet therapy after her thrombolytic therapy. --Carotid U/S: shows complete occlusion on left. high grade stenosis on the right. --echo: shows EF 50%; aortic and mitral valve regurgitation (2) Metastatic disease Status: Acute Plan: CTA--> bilateral adrenal masses, numerous by lobar low density hepatic masses consistent with metastatic disease and bilateral adnexal masses suspected to be ovarian etiology. There is also an ill-defined lesion in the spleen. tumor markers WNL --CT guided biopsy ordered, on hold as patient just had tpa. -- fs faxed to new patient referrals for outpatient follow up in 1-2 weeks (3) Reactive thrombocytosis Status: Acute Plan: --no specific therapy is required for the reactive thrombocytosis. --will continue to follow on an outpatient basis. --in last CBC was from 2002, her white blood cell count and platelet count were normal. 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 h/o Chronic tobacco use Reactive thrombocytosis Chronic dry mouth Prior uvular cancer CVA Nephrolithiasis Plan 1. await biopsy on Thursday 2. continue heparin gtt 3. start Plavix after biopsy on Thursday Attending Statement The exam, history, and the medical decision-making described in the above note were completed with the assistance of the mid-level provider. I reviewed and agree with the findings presented. I attest that I had a [id number]-ov-[id number] encounter with the patient on the same day, and personally performed and documented my assessment and findings in the medical record. Events noted. L leg continue to feel good. No recurrence. Antiplatelet on hold until diagnostic biopsy, concerning lesions for metastatic disease. Need to follow up as out pt for staging CT/PET pending pathology. Nieves Lopez Oct 03, 2016 13:52 Marine Ventura MD Oct 03, 2016 19:09
[2016-10-03 17:02] LABS: APTT (PATIENT) 44.9 SEC (24.3-30.1)
[2016-10-03] MEDS: HEPARIN-D5W INJ 250 ML IV SCH (18:29)
[2016-10-03] MEDS: SULFAMETHOXAZOLE-TRIMETHOPRIM DS 800-160 MG TAB PO SCH (22:44)
[2016-10-04] VITALS (8 sets, daily range): BP systolic 104–110; BP diastolic 41–59; PULSE 55–76; RESP 12–18; TEMP 96.1–97.8; O2SAT 55–100
[2016-10-04 07:32] LABS: HEMATOCRIT 28.6 % (35.0-46.0); MEAN CELL VOLUME 95.6 FL (80.0-100.0); MEAN CORPUSCULAR HEMOGLOBIN 31.8 PG (27.0-34.0); MEAN CORPUSCULAR HGB CONC 33.2 % (32.0-36.0); PLATELET COUNT 429 TH/MM3 (150-450); RED BLOOD COUNT 2.99 MIL/MM3 (4.00-5.30); REVIEW FLAG FINAL; WHITE BLOOD COUNT 6.1 TH/MM3 (4.0-11.0)
[2016-10-04 07:44] LABS: APTT (PATIENT) 51.4 SEC (24.3-30.1)
[2016-10-04 08:26] LABS: BICARBONATE 24.2 MEQ/L (21.0-32.0); MAGNESIUM 1.6 MG/DL (1.5-2.5)
[2016-10-04 08:41] LABS: POTASSIUM 2.9 MEQ/L (3.5-5.1)
--- NOTE | 2016-10-04 08:43 | HHI.PR ---
Subjective Remarks Follow-up left lower extremity arterial occlusion and anemia. Denies foot pain , dizziness, chest pain and shortness of breath. Objective Vitals Vital Signs Date Time Temp Pulse Resp B/P Pulse Ox O2 Delivery O2 Flow Rate FiO2 10/04/16 04:03 55 10/04/16 04:00 96.1 59 16 110/59 96 10/04/16 00:13 16 10/04/16 00:05 62 10/03/16 23:30 97.6 64 16 140/65 97 10/03/16 22:44 Nasal Cannula 2.00 10/03/16 20:10 65 10/03/16 20:00 98.2 65 16 127/58 97 10/03/16 16:00 96.7 63 18 110/51 99 10/03/16 12:00 96.7 70 18 117/57 98 I/O 10/03/16 10/03/16 10/03/16 10/04/16 10/04/16 10/04/16 06:59 14:59 22:59 06:59 14:59 22:59 Intake Total 950 ml 240 ml 1400 ml Balance 950 ml 240 ml 1400 ml Intake Oral 950 ml 240 ml 1400 ml # Voids 3 # Bowel Movements 0 Result Diagram: 10/04/16 0634 10/02/16 0616 Imaging Last Impressions Carotid Artery Ultrasound 10/02/16 0000 Signed Impressions: Service Date/Time: September 12:27 - CONCLUSION: 1. Complete occlusion of the entire left carotid. 2. High-grade stenosis involving the proximal common carotid artery on the right. Consider CTA of the carotid arteries to further evaluate. 3. Antegrade flow involving both vertebral arteries. Aryan Blanco Jr., MD Lower Extremity Angiography 10/01/16 0000 Signed Impressions: Service Date/Time: Saturday, October 01, 2016 08:38 - CONCLUSION: 1. Angiography confirms occlusion of the left common artery with involvement of the origin of the SFA and profunda. 2. Apparent interval distal embolization to the distal SFA, popliteal artery, and the intraventricular artery. 3. Excellent angiographic result following pharmacomechanical thrombolysis utilizing AngioJet device and 5 balloon angioplasty of the distal left common femoral artery. 4. Intervention was not performed in the profunda and there is likely residual micro-emboli in the plantar arch. There is sufficient flow for viability of the left foot, therefore, overnight TPA infusion was not performed in this patient with suspected metastatic disease. Josias Mena MD Head CT 09/30/16 2233 Signed Impressions: Service Date/Time: Friday, September 30, 2016 23:18 - CONCLUSION: 1. No bleed or evidence of an acute ischemic event. 2. 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 3. Chronic-appearing sinus disease. Mitch Choi MD Chest X-Ray 09/30/16 0000 Signed Impressions: Service Date/Time: Friday, September 30, 2016 23:39 - CONCLUSION: No acute cardiopulmonary disease demonstrated. Mitch Choi MD Aorta w/Runoff CTA 09/30/16 0000 Signed Impressions: Service Date/Time: Friday, September 30, 2016 23:24 - CONCLUSION: 1. Abnormal examination demonstrating occlusion of the left common femoral artery with thrombus extending to the origin of the profunda and SFA. Additionally, the left runoff vessels are not visualized beyond the proximal calf concerning for distal emboli. 2. Large bilateral adrenal masses and numerous bilobar low density hepatic masses consistent with metastatic disease. 3. Bilateral adnexal prominence/masses, likely ovarian in etiology. This can be further evaluated with ultrasound exam. Differential considerations include prominent ovarian tissue versus ovarian masses, likely metastatic. Overall pattern of the abnormalities in the abdomen is not consistent with ovarian primary. 4. Subcentimeter region of ill-defined decreased density in the spleen may be related to phase of contrast although a splenic mass cannot be excluded. 5. Additional findings include nonobstructing 4 mm left renal calculus. Josias Mena MD Objective Remarks GENERAL: NAD, well-developed, asthenic SKIN: Warm and dry. HEAD: Normocephalic. Pupils reactive to light EYES: No scleral icterus. No injection or drainage. NECK: Supple, trachea midline. No JVD or lymphadenopathy. CARDIOVASCULAR: Regular rate and rhythm without gallops, or rubs. RESPIRATORY: Breath sounds equal bilaterally. No accessory muscle use. GASTROINTESTINAL: Abdomen soft, non-tender, nondistended. MUSCULOSKELETAL: No cyanosis, or edema. BACK: Nontender without obvious deformity. No CVA tenderness. Procedures TPA and thrombectomy A/P Problem List: (1) Arterial occlusion ICD Code: I74.9 Status: Acute (2) Ovarian malignant neoplasm ICD Code: C56.9 Status: Acute (3) Urinary tract infection ICD Code: N39.0 Status: Acute (4) Acute renal failure ICD Code: N17.9 Status: Acute (5) IFG (impaired fasting glucose) ICD Code: R73.01 Status: Acute (6) Metastatic disease ICD Code: C79.9 Status: Acute Assessment and Plan 61 year-old female with Ovarian malignant neoplasm with possible metastases? CT abdomen/pelvics with finding of Large bilateral adrenal masses and numerous bilobar low density hepatic masses consistent with metastatic disease.Bilateral adnexal prominence/masses, likely ovarian in etiology. LDH high otherwise other tumor marker including CA 125, CEA, AFP within normal limit limit Plan for CT-guided liver biopsy postponed to Thursday because of Plavix which is currently on hold Left lower extremity Arterial occlusion Status post angioplasty, TPA pulse spray and angiojet thrombectomy Management per interventional radiology Parenteral pain management accordingly On heparin drip then switch to plavix post bx Continue to look for thromboembolic source. Echocardiogram without clots. Abnormal carotid sonogram obtain CTA history of CVA Urinary tract infection On IV Cipro every 12 hours urine culture shows Escherichia coli resistant to Cipro change to Bactrim Acute renal failure Resolved with gentle IV fluid hydration, monitor BUN and creatinine and avoid all nephrotoxic drugs. Impaired fasting glucose/hyperglycemia Resolved No known history of diabetes type 2, hemoglobin A1c 6.2 Normocytic normochromic anemia. No gross bleeding. Check Hemoccult. Continue to monitor while on heparin drip DVT prophylaxis Heparin Discharge Planning Not stable for discharge Problem Qualifiers (1) Urinary tract infection: Qualified Code: N30.00 - Acute cystitis without hematuria Danyel Griffin MD Oct 04, 2016 08:43
[2016-10-04] MEDS ORDERED: SENNOSIDES 8.6 MG TAB PO PRN (08:45)
[2016-10-04] MEDS ORDERED: MAGNESIUM HYDROXIDE SUSP 30 ML CUP PO PRN (08:45)
[2016-10-04] MEDS ORDERED: LACTULOSE SYRUP 20 GM/30 ML CUP PO PRN (08:45)
[2016-10-04] MEDS ORDERED: IOHEXOL 350 MG/ML 10 ML VIAL (for RAD DIAG) IV ONE (08:48)
[2016-10-04] MEDS: POTASSIUM CHLORIDE 20 MEQ CONTROLLED RELEASE TAB PO SCH ×2 (10:35→22:06)
[2016-10-04] MEDS: DOCUSATE SODIUM 50 MG/SENNA 8.6 MG TAB PO SCH ×2 (10:35→22:06)
[2016-10-04] MEDS: MAGNESIUM OXIDE 400 MG TAB PO SCH ×2 (10:35→22:05)
[2016-10-04] MEDS: SODIUM CHLORIDE 0.9% FLUSH 10 ML FLUSH IV FLUSH SCH ×2 (10:36→22:06)
[2016-10-04] MEDS: SULFAMETHOXAZOLE-TRIMETHOPRIM DS 800-160 MG TAB PO SCH ×2 (10:36→22:06)
--- NOTE | 2016-10-04 11:23 | RADRPT ---
EXAM DATE/TIME: 10/04/2016 08:23 [facility] COMPARISON: CHEST SINGLE AP, September 30, 2016, 23:39. ANGIOGRAM, LEFT LEG, October 01, 2016, 8:38. INDICATIONS : Evaluate for occlusion. IV CONTRAST: 100 cc Omnipaque 350 (iohexol) IV RADIATION DOSE: 13.20 CTDIvol (mGy) MEDICAL HISTORY : Stroke. Carcinoma, not otherwise specified. SURGICAL HISTORY : None. ENCOUNTER: Initial ACUITY: 1 day PAIN SCALE: 5/10 LOCATION: Bilateral neck Elevated flow velocities and ICA/CCA ratios have been found to correlate with increased degrees of vessel stenosis, calculated as percentage of diameter relative to a normal segment of distal ICA/CCA. TECHNIQUE: Volumetric scanning was performed using a multirow detector CT scanner. The data was post processed with a variety of visualization algorithms including full-volume maximum intensity projection, multip lanar sliding thin-slab reformation, curved-planar reformation, and surface-rendering techniques. Us ing automated exposure control and adjustment of the mA and/or kV according to patient size, radiatio n dose was kept as low as reasonably achievable to obtain optimal diagnostic quality images. DICOM f ormat image data is available electronically for review and comparison. FINDINGS: AORTIC ARCH: There is a three-vessel origin of the great vessels from the aorta. The left common carotid artery is completely occluded at its origin. The left subclavian artery demonstrates marked severe stenosis at its origin. RIGHT CAROTID: Marked luminal narrowing is identified in the proximal common carotid artery. There is proximal segme ntal stenosis measuring at least 90% or greater. Eccentric low density plaque is identified in the pr oximal right common carotid artery. There is more concentric disease seen at the bifurcation. Eccentr ic calcified plaque is identified in the right carotid bifurcation with evidence of mild to moderate stenosis less than 50%. LEFT CAROTID: The left carotid system is completely occluded from the origin of the left common carotid artery to t he proximal intracranial segment. VERTEBRALS: Right vertebral artery is patent but contains eccentric plaque at its origin. There is no significant flow identified in the left vertebral artery. Masslike consolidation is identified in the right upper lobe. CONCLUSION: 1. Occluded left carotid system from the origin of the common carotid artery to the cavernous intracr anial segment. 2. High-grade segmental stenotic lesion in the proximal right common carotid artery. Endovascular evens nting should be considered based on the patient's surgical risk. 3. Proximal right vertebral artery stenosis 4. Masslike consolidation in the right upper lobe which may be neoplastic. Isiah Gomez MD on October 04, 2016 at 11:06 Board Certified Radiologist. This report was verified electronically.
[2016-10-05] VITALS (7 sets, daily range): BP systolic 96–122; BP diastolic 52–60; PULSE 63–70; RESP 18; TEMP 97.2–98.7; O2SAT 95–99
[2016-10-05 08:15] LABS: BASOPHIL # 0.1 TH/MM3 (0-0.2); BASOPHIL % 1.8 % (0.0-2.0); EOSINOPHIL # 0.3 TH/MM3 (0-0.4); EOSINOPHIL % 3.7 % (0.0-4.0); HEMATOCRIT 31.1 % (35.0-46.0); HEMO FLAGS DIFF FINAL; LYMPH % 16.8 % (9.0-44.0); LYMPHOCYTE # 1.2 TH/MM3 (1.0-4.8); MEAN CELL VOLUME 94.8 FL (80.0-100.0); MEAN CORPUSCULAR HEMOGLOBIN 31.5 PG (27.0-34.0); MEAN CORPUSCULAR HGB CONC 33.2 % (32.0-36.0); MONO % 7.9 % (0.0-8.0); NEUT % 69.8 % (16.0-70.0); PLATELET COUNT 518 TH/MM3 (150-450); RED BLOOD COUNT 3.28 MIL/MM3 (4.00-5.30); RED CELL DISTRIBUTION WIDTH 16.1 % (11.6-17.2); WHITE BLOOD COUNT 7.2 TH/MM3 (4.0-11.0)
[2016-10-05 08:23] LABS: APTT (PATIENT) 51.1 SEC (24.3-30.1)
[2016-10-05 08:45] LABS: BICARBONATE 23.1 MEQ/L (21.0-32.0); MAGNESIUM 1.9 MG/DL (1.5-2.5); POTASSIUM 4.1 MEQ/L (3.5-5.1)
--- NOTE | 2016-10-05 09:28 | HHI.PR ---
Subjective Remarks Follow-up left lower extremity arterial occlusion, PAD and possible metastatic disease. States she started being here denies left lower extremity pain. History of CVA but no neurologic symptoms at this time. She was proceed with liver biopsy tomorrow. 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 Objective Vitals Vital Signs Date Time Temp Pulse Resp B/P Pulse Ox O2 Delivery O2 Flow Rate FiO2 10/05/16 08:00 97.2 63 18 96/55 99 10/05/16 04:00 97.9 70 18 112/58 98 10/05/16 00:00 98.7 70 18 99/52 95 10/04/16 22:41 96 Nasal Cannula 2.00 10/04/16 22:40 76 10/04/16 20:00 97.8 70 18 110/51 96 10/04/16 16:00 72 10/04/16 12:00 97.5 66 18 110/41 100 I/O 10/04/16 10/04/16 10/04/16 10/05/16 10/05/16 10/05/16 07:00 15:00 23:00 07:00 15:00 23:00 Intake Total 1400 ml 600 ml 220 ml 220 ml Output Total 2000 ml Balance 1400 ml 600 ml 220 ml 220 ml -2000 ml Intake Oral 1400 ml 600 ml 220 ml 220 ml Output Urine Total 2000 ml # Voids 7 1 # Bowel Movements 0 0 Result Diagram: 10/05/16 0726 10/05/16 0726 Imaging Last Impressions Neck CTA 10/03/16 0000 Signed Impressions: Service Date/Time: Tuesday, October 04, 2016 08:23 - CONCLUSION: 1. Occluded left carotid system from the origin of the common carotid artery to the cavernous intracranial segment. 2. High-grade segmental stenotic lesion in the proximal right common carotid artery. Endovascular stenting should be considered based on the patient's surgical risk. 3. Proximal right vertebral artery stenosis 4. Masslike consolidation in the right upper lobe which may be neoplastic. Isiah Gomez MD Carotid Artery Ultrasound 10/02/16 0000 Signed Impressions: Service Date/Time: September 12:27 - CONCLUSION: 1. Complete occlusion of the entire left carotid. 2. High-grade stenosis involving the proximal common carotid artery on the right. Consider CTA of the carotid arteries to further evaluate. 3. Antegrade flow involving both vertebral arteries. Aryan Blanco Jr., MD Lower Extremity Angiography 10/01/16 0000 Signed Impressions: Service Date/Time: Saturday, October 01, 2016 08:38 - CONCLUSION: 1. Angiography confirms occlusion of the left common artery with involvement of the origin of the SFA and profunda. 2. Apparent interval distal embolization to the distal SFA, popliteal artery, and the intraventricular artery. 3. Excellent angiographic result following pharmacomechanical thrombolysis utilizing AngioJet device and 5 balloon angioplasty of the distal left common femoral artery. 4. Intervention was not performed in the profunda and there is likely residual micro-emboli in the plantar arch. There is sufficient flow for viability of the left foot, therefore, overnight TPA infusion was not performed in this patient with suspected metastatic disease. Josias Mena MD Head CT 09/30/16 2233 Signed Impressions: Service Date/Time: Friday, September 30, 2016 23:18 - CONCLUSION: 1. No bleed or evidence of an acute ischemic event. 2. 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 3. Chronic-appearing sinus disease. Mitch Choi MD Chest X-Ray 09/30/16 0000 Signed Impressions: Service Date/Time: Friday, September 30, 2016 23:39 - CONCLUSION: No acute cardiopulmonary disease demonstrated. Mitch Choi MD Aorta w/Runoff CTA 09/30/16 0000 Signed Impressions: Service Date/Time: Friday, September 30, 2016 23:24 - CONCLUSION: 1. Abnormal examination demonstrating occlusion of the left common femoral artery with thrombus extending to the origin of the profunda and SFA. Additionally, the left runoff vessels are not visualized beyond the proximal calf concerning for distal emboli. 2. Large bilateral adrenal masses and numerous bilobar low density hepatic masses consistent with metastatic disease. 3. Bilateral adnexal prominence/masses, likely ovarian in etiology. This can be further evaluated with ultrasound exam. Differential considerations include prominent ovarian tissue versus ovarian masses, likely metastatic. Overall pattern of the abnormalities in the abdomen is not consistent with ovarian primary. 4. Subcentimeter region of ill-defined decreased density in the spleen may be related to phase of contrast although a splenic mass cannot be excluded. 5. Additional findings include nonobstructing 4 mm left renal calculus. Josias Mena MD Objective Remarks Well-developed asthenic in no distress Neck no JVD, positive bruit right carotid Regular rate and rhythm no murmur Clear to auscultation no wheezes Bilateral lower extremities no edema, cyanosis with palpable pulses Procedures TPA and thrombectomy A/P Problem List: (1) Arterial occlusion ICD Code: I74.9 Status: Acute (2) Ovarian malignant neoplasm ICD Code: C56.9 Status: Acute (3) Urinary tract infection ICD Code: N39.0 Status: Acute (4) Acute renal failure ICD Code: N17.9 Status: Acute (5) IFG (impaired fasting glucose) ICD Code: R73.01 Status: Acute (6) Metastatic disease ICD Code: C79.9 Status: Acute Assessment and Plan 61 year-old female with Ovarian malignant neoplasm with possible metastases? CT abdomen/pelvics with finding of Large bilateral adrenal masses and numerous bilobar low density hepatic masses consistent with metastatic disease.Bilateral adnexal prominence/masses, likely ovarian in etiology. LDH high otherwise other tumor marker including CA 125, CEA, AFP within normal limit limit Plan for CT-guided liver biopsy postponed to Thursday because of Plavix which is currently on hold Left lower extremity Arterial occlusion Status post angioplasty, TPA pulse spray and angiojet thrombectomy Management per interventional radiology Parenteral pain management accordingly On heparin drip then switch to plavix post bx Continue to look for thromboembolic source. Echocardiogram without clots. 10/05 doing okay has not been using Lortab or IV morphine PVD with abnormal CTA with the following results Occluded left carotid system from the origin of the common carotid artery to the cavernous intracranial segment. 2. High-grade segmental stenotic lesion in the proximal right common carotid artery History of left CVA. Patient asymptomatic currently on heparin drip. We'll discuss with oncology timing of endovascular intervention ensuring she is being workup for metastatic disease and she is asymptomatic and neurologically intact Urinary tract infection On IV Cipro every 12 hours urine culture shows Escherichia coli resistant to Cipro change to Bactrim last dose today Acute renal failure Resolved with gentle IV fluid hydration, monitor BUN and creatinine and avoid all nephrotoxic drugs. Impaired fasting glucose/hyperglycemia Resolved No known history of diabetes type 2, hemoglobin A1c 6.2 Normocytic normochromic anemia. No gross bleeding. Check Hemoccult. Continue to monitor while on heparin drip 10/05 stable follow-up Hemoccult DVT prophylaxis Heparin Discharge Planning Discharge when cleared by hematology/oncology Problem Qualifiers (1) Urinary tract infection: Qualified Code: N30.00 - Acute cystitis without hematuria Danyel Griffin MD Oct 05, 2016 09:28
[2016-10-05] MEDS: DOCUSATE SODIUM 50 MG/SENNA 8.6 MG TAB PO SCH ×2 (10:14→21:50)
[2016-10-05] MEDS: SULFAMETHOXAZOLE-TRIMETHOPRIM DS 800-160 MG TAB PO SCH ×2 (10:14→21:49)
[2016-10-05] MEDS: MAGNESIUM OXIDE 400 MG TAB PO SCH ×2 (10:14→21:50)
[2016-10-05] MEDS: POTASSIUM CHLORIDE 20 MEQ CONTROLLED RELEASE TAB PO SCH ×2 (10:15→21:50)
[2016-10-05] MEDS: SODIUM CHLORIDE 0.9% FLUSH 10 ML FLUSH IV FLUSH SCH ×2 (10:15→21:00)
[2016-10-05] MEDS: MORPHINE SULFATE 8 MG/ML INJ IV PUSH PRN (12:15)
--- NOTE | 2016-10-05 14:07 | PD.ONC.PN ---
Subjective Subjective Remarks Afebrile overnight Pt c/o headache, occasional cramps in both legs Asking what time biopsy will be tomorrow Objective Data Date Time Temp Pulse Resp B/P Pulse Ox O2 Delivery O2 Flow Rate FiO2 10/05/16 12:00 97.6 70 18 122/58 99 10/05/16 08:00 97.2 63 18 96/55 99 10/05/16 04:00 97.9 70 18 112/58 98 10/05/16 00:00 98.7 70 18 99/52 95 10/04/16 22:41 96 Nasal Cannula 2.00 10/04/16 22:40 76 10/04/16 20:00 97.8 70 18 110/51 96 10/04/16 16:00 72 10/05/16 10/05/16 10/05/16 07:00 15:00 23:00 Intake Total 220 ml 720 ml Output Total 2000 ml Balance 220 ml -1280 ml Result Diagram: 10/05/16 0726 10/05/16 0726 Laboratory Results Laboratory Tests Test 10/05/16 07:26 White Blood Count 7.2 TH/MM3 Red Blood Count 3.28 MIL/MM3 Hemoglobin 10.3 GM/DL Hematocrit 31.1 % Mean Corpuscular Volume 94.8 FL Mean Corpuscular Hemoglobin 31.5 PG Mean Corpuscular Hemoglobin 33.2 % Concent Red Cell Distribution Width 16.1 % Platelet Count 518 TH/MM3 Mean Platelet Volume 7.2 FL Neutrophils (%) (Auto) 69.8 % Lymphocytes (%) (Auto) 16.8 % Monocytes (%) (Auto) 7.9 % Eosinophils (%) (Auto) 3.7 % Basophils (%) (Auto) 1.8 % Neutrophils # (Auto) 5.0 TH/MM3 Lymphocytes # (Auto) 1.2 TH/MM3 Monocytes # (Auto) 0.6 TH/MM3 Eosinophils # (Auto) 0.3 TH/MM3 Basophils # (Auto) 0.1 TH/MM3 CBC Comment DIFF FINAL Differential Comment Activated Partial 51.1 SEC Thromboplast Time Sodium Level 136 MEQ/L Potassium Level 4.1 MEQ/L Chloride Level 106 MEQ/L Carbon Dioxide Level 23.1 MEQ/L Anion Gap 7 MEQ/L Blood Urea Nitrogen 8 MG/DL Creatinine 0.88 MG/DL Estimat Glomerular Filtration 66 ML/MIN Rate Random Glucose 110 MG/DL Calcium Level 8.8 MG/DL Magnesium Level 1.9 MG/DL Administered Medications Medications (Trade) Dose Ordered Sig/Westley Route PRN Reason Start Time Stop Time Status Last Admin Dose Admin Sodium Chloride (NS Flush) 2 ml BID IV FLUSH 10/01/16 09:00 10/05/16 10:15 Morphine Sulfate 1 mg 1 mg Q6H PRN IV PUSH breakthru pain 10/01/16 17:15 10/05/16 12:15 Heparin Sodium/ Dextrose (Heparin-D5W Inj) 250 ml @ 0 mls/hr TITRATE IV 10/02/16 12:30 10/03/16 18:29 Acetaminophen/ Hydrocodone Bitart ([place] 5-325 Mg) 1 tab Q4H PRN PO pain 3-10 10/03/16 10:00 10/03/16 22:44 Trimethoprim/ Sulfamethoxazole (Bactrim Ds 800-160 Mg) 1 tab Q12HR PO 10/03/16 21:00 10/06/16 20:59 10/05/16 10:14 Senna/Docusate Sodium (Neha-Colace) 1 tab BID PO 10/04/16 09:00 10/05/16 10:14 Potassium Chloride (KCl) 40 meq Q12HR PO 10/04/16 10:00 10/05/16 10:15 Magnesium Oxide (Mag-Ox) 400 mg Q12HR PO 10/04/16 10:00 10/05/16 10:14 Objective Remarks GENERAL: Cachetic older female, resting in bed in no distress. SKIN: Warm and dry. HEAD: Normocephalic. EYES: No injection or drainage. NECK: Supple, trachea midline. CARDIOVASCULAR: Regular rate and rhythm without murmurs. RESPIRATORY: Clear anteriorly. Breathing unlabored. GASTROINTESTINAL: Abdomen soft, non-tender, nondistended. EXTREMITIES: No cyanosis, or edema. NEUROLOGICAL: No obvious focal deficit. Awake, alert, and oriented x3. Assessment/Plan Problem List: (1) Arterial occlusion Status: Acute Plan: CTA aorta with runoff-->++ occlusion of the left common femoral artery with thrombus extending to the origin of the profunda and superior femoral artery. --s/p local thrombolytic therapy on 10.01 --will need anticoagulant therapy or at least antiplatelet therapy after her thrombolytic therapy. --Carotid U/S: shows complete occlusion on left. high grade stenosis on the right. --echo: shows EF 50%; aortic and mitral valve regurgitation (2) Metastatic disease Status: Acute Plan: CTA--> bilateral adrenal masses, numerous by lobar low density hepatic masses consistent with metastatic disease and bilateral adnexal masses suspected to be ovarian etiology. There is also an ill-defined lesion in the spleen. tumor markers WNL --CT guided biopsy ordered, on hold as patient just had tpa. -- fs faxed to new patient referrals for outpatient follow up in 1-2 weeks (3) Reactive thrombocytosis Status: Acute Plan: --no specific therapy is required for the reactive thrombocytosis. --will continue to follow on an outpatient basis. --in last CBC was from 2002, her white blood cell count and platelet count were normal. 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 h/o Chronic tobacco use Reactive thrombocytosis Chronic dry mouth Prior uvular cancer CVA Nephrolithiasis Plan 1. Biopsy of adrenal masses tomorrow. 2. Consult vascular for occluded L carotid via CTA neck. 3. Continue heparin gtt; hold off on starting Plavix until vascular sees pt. 4. Monitor CBC. Attending Statement The exam, history, and the medical decision-making described in the above note were completed with the assistance of the mid-level provider. I reviewed and agree with the findings presented. I attest that I had a [id number] encounter with the patient on the same day, and personally performed and documented my assessment and findings in the medical record. biopsy tomorrow vascular consulted for carotid occlusion Caryn Floyd Oct 05, 2016 14:07 Greg Magana MD Oct 05, 2016 16:44
[2016-10-06] VITALS (13 sets, daily range): BP systolic 101–143; BP diastolic 46–99; PULSE 60–76; RESP 14–19; TEMP 95.6–98; O2SAT 96–100
--- NOTE | 2016-10-06 08:09 | PD.VS.CON ---
History of Present Illness Chief Complaint: L carotid occlusion Consult Requested by: Medical service History of Present Illness 61 yo female who was admitted with acute L LE ischemia, had lysis last week by IR with resolution of her symptoms. Has CT that showed multiple lesions in liver and adrenals that are suggestive of metastatic disease. On schedule for biopsy today. Called because of carotid occlusions seen on CTA. Reportedly had CVA in 2009 but none since. Past/Family/Social History Past Medical History CVOD w/ CVA uvular cancer Social History tobacco abuse Family History NC Home Medications Reported Medications Clopidogrel (Plavix)75 Mg Tab75 Mg PO DAILY #30 TAB Ref 0 09/30/16 Discontinued Reported Medications Aspirin (Aspirin 325 mg)325 Mg [id number] Mg PO DAILY 05/02/09 Coded Allergies: Ampicillin (Verified Allergy, Intermediate, Rash, 09/30/16) Uncoded Allergies: AMPICILLIN-RASH (Allergy, Intermediate, Rash, 05/02/09) NKA (Allergy, Unknown, 11/28/02) Review of Systems Constitutional: COMPLAINS OF: Weight loss Cardiovascular: COMPLAINS OF: Syncope, DENIES: Lower Extremity Edema Neurologic: COMPLAINS OF: Speech Problems, DENIES: Localized weakness Physical Exam Vitals/I&O Date Time Temp Pulse Resp B/P Pulse Ox O2 Delivery O2 Flow Rate FiO2 10/06/16 04:09 66 10/06/16 03:32 97.5 60 18 110/46 97 10/06/16 00:21 95.6 60 18 116/60 100 10/06/16 00:15 64 10/05/16 21:40 96 Nasal Cannula 2.00 10/05/16 20:23 98.4 67 18 118/58 97 10/05/16 20:06 68 10/05/16 16:00 97.4 63 18 110/60 98 10/05/16 12:00 97.6 70 18 122/58 99 10/05/16 08:00 97 Nasal Cannula 2.00 10/05/16 08:00 97.2 63 18 96/55 99 10/06/16 10/06/16 10/06/16 06:59 14:59 22:59 Intake Total 45 ml Output Total 300 ml Balance -255 ml Neuro: no focal defects; alert HEENT: muffled speech but baseline Neck: thin neck, cachectic Heart: reg rate, no M Lungs: clear B Abdomen: NT Vascular: palpable DP CTA reviewed - occluded ICA from neck going into intracranial portion Assessment and Plan Plan I think that she has carotid occlusive disease but is asymptomatic . 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 She needs aggressive anticoagulation and CV risk factor modification (ASA and statin). no carotid intervention needed given total occlusion (no atheroembolic risk). Please call with any questions. Dane Chand MD FASC RPVI toll transmission worker [facility] - [facility] at [facility] [phone] Dane Chand MD Oct 06, 2016 08:09
[2016-10-06] MEDS: MORPHINE SULFATE 8 MG/ML INJ IV PUSH PRN (08:43)
[2016-10-06] MEDS: DOCUSATE SODIUM 50 MG/SENNA 8.6 MG TAB PO SCH ×2 (09:00→21:11)
[2016-10-06] MEDS: MAGNESIUM OXIDE 400 MG TAB PO SCH ×2 (09:00→21:11)
[2016-10-06] MEDS: POTASSIUM CHLORIDE 20 MEQ CONTROLLED RELEASE TAB PO SCH ×2 (09:00→21:11)
[2016-10-06] MEDS: SODIUM CHLORIDE 0.9% FLUSH 10 ML FLUSH IV FLUSH SCH ×2 (09:00→21:14)
[2016-10-06] MEDS: SULFAMETHOXAZOLE-TRIMETHOPRIM DS 800-160 MG TAB PO SCH (09:00)
[2016-10-06] MEDS ORDERED: GLUCAGON 1 MG/ML VIAL OTHER PRN (09:30)
[2016-10-06] MEDS ORDERED: DEXTROSE 50% IN WATER 50 ML VIAL(D50) IV PRN (09:30)
--- NOTE | 2016-10-06 09:32 | HHI.PR ---
Subjective Remarks Follow-up left lower extremity occlusion and possible metastatic disease. Denies left lower extremity pain but complains of slight frontal dull achy headache because she is currently nothing by mouth for liver biopsy. Discussed with RN Objective Vitals Vital Signs Date Time Temp Pulse Resp B/P Pulse Ox O2 Delivery O2 Flow Rate FiO2 10/06/16 08:00 97.9 72 16 108/99 96 10/06/16 04:09 66 10/06/16 03:32 97.5 60 18 110/46 97 10/06/16 00:21 95.6 60 18 116/60 100 10/06/16 00:15 64 10/05/16 21:40 96 Nasal Cannula 2.00 10/05/16 20:23 98.4 67 18 118/58 97 10/05/16 20:06 68 10/05/16 16:00 97.4 63 18 110/60 98 10/05/16 12:00 97.6 70 18 122/58 99 I/O 10/05/16 10/05/16 10/05/16 10/06/16 10/06/16 10/06/16 07:00 15:00 23:00 07:00 15:00 23:00 Intake Total 220 ml 1200 ml 640 ml 45 ml Output Total 2600 ml 300 ml 400 ml Balance 220 ml -1400 ml 640 ml -255 ml -400 ml Intake Oral 220 ml 1200 ml IV Total 640 ml 45 ml Output Urine Total 2600 ml 300 ml 400 ml # Voids 1 # Bowel Movements 0 0 Result Diagram: 10/05/16 0726 10/05/16 0726 Imaging Last Impressions Neck CTA 10/03/16 0000 Signed Impressions: Service Date/Time: Tuesday, October 04, 2016 08:23 - CONCLUSION: 1. Occluded left carotid system from the origin of the common carotid artery to the cavernous intracranial segment. 2. High-grade segmental stenotic lesion in the proximal right common carotid artery. Endovascular stenting should be considered based on the patient's surgical risk. 3. Proximal right vertebral artery stenosis 4. Masslike consolidation in the right upper lobe which may be neoplastic. Isiah Gomez MD Carotid Artery Ultrasound 10/02/16 0000 Signed Impressions: Service Date/Time: September 12:27 - CONCLUSION: 1. Complete occlusion of the entire left carotid. 2. High-grade stenosis involving the proximal common carotid artery on the right. Consider CTA of the carotid arteries to further evaluate. 3. Antegrade flow involving both vertebral arteries. Aryan Blanco Jr., MD Lower Extremity Angiography 10/01/16 0000 Signed Impressions: Service Date/Time: Saturday, October 01, 2016 08:38 - CONCLUSION: 1. Angiography confirms occlusion of the left common artery with involvement of the origin of the SFA and profunda. 2. Apparent interval distal embolization to the distal SFA, popliteal artery, and the intraventricular artery. 3. Excellent angiographic result following pharmacomechanical thrombolysis utilizing AngioJet device and 5 balloon angioplasty of the distal left common femoral artery. 4. Intervention was not performed in the profunda and there is likely residual micro-emboli in the plantar arch. There is sufficient flow for viability of the left foot, therefore, overnight TPA infusion was not performed in this patient with suspected metastatic disease. Josias Mena MD Head CT 09/30/16 2233 Signed Impressions: Service Date/Time: Friday, September 30, 2016 23:18 - CONCLUSION: 1. No bleed or evidence of an acute ischemic event. 2. 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 3. Chronic-appearing sinus disease. Mitch Choi MD Chest X-Ray 09/30/16 0000 Signed Impressions: Service Date/Time: Friday, September 30, 2016 23:39 - CONCLUSION: No acute cardiopulmonary disease demonstrated. Mitch Choi MD Aorta w/Runoff CTA 09/30/16 0000 Signed Impressions: Service Date/Time: Friday, September 30, 2016 23:24 - CONCLUSION: 1. Abnormal examination demonstrating occlusion of the left common femoral artery with thrombus extending to the origin of the profunda and SFA. Additionally, the left runoff vessels are not visualized beyond the proximal calf concerning for distal emboli. 2. Large bilateral adrenal masses and numerous bilobar low density hepatic masses consistent with metastatic disease. 3. Bilateral adnexal prominence/masses, likely ovarian in etiology. This can be further evaluated with ultrasound exam. Differential considerations include prominent ovarian tissue versus ovarian masses, likely metastatic. Overall pattern of the abnormalities in the abdomen is not consistent with ovarian primary. 4. Subcentimeter region of ill-defined decreased density in the spleen may be related to phase of contrast although a splenic mass cannot be excluded. 5. Additional findings include nonobstructing 4 mm left renal calculus. Josias Mena MD Objective Remarks Well-developed asthenic in no distress Neck no JVD, positive bruit right carotid Regular rate and rhythm no murmur Clear to auscultation no wheezes Bilateral lower extremities no edema, cyanosis with palpable pulses No change in PE from previous Procedures TPA and thrombectomy A/P Problem List: (1) Arterial occlusion ICD Code: I74.9 Status: Acute (2) Ovarian malignant neoplasm ICD Code: C56.9 Status: Acute (3) Urinary tract infection ICD Code: N39.0 Status: Acute (4) Acute renal failure ICD Code: N17.9 Status: Acute (5) IFG (impaired fasting glucose) ICD Code: R73.01 Status: Acute (6) Metastatic disease ICD Code: C79.9 Status: Acute Assessment and Plan 61 year-old female with Ovarian malignant neoplasm with possible metastases? CT abdomen/pelvics with finding of Large bilateral adrenal masses and numerous bilobar low density hepatic masses consistent with metastatic disease.Bilateral adnexal prominence/masses, likely ovarian in etiology. LDH high otherwise other tumor marker including CA 125, CEA, AFP within normal limit limit For CT-guided liver biopsy postponed to Thursday today because of Plavix which is currently on hold Left lower extremity Arterial occlusion Status post angioplasty, TPA pulse spray and angiojet thrombectomy Management per interventional radiology Parenteral pain management accordingly On heparin drip then switch to plavix post bx Echocardiogram without clots. PVD with abnormal CTA with the following results Occluded left carotid system from the origin of the common carotid artery to the cavernous intracranial segment. 2. High-grade segmental stenotic lesion in the proximal right common carotid artery History of left CVA. Patient asymptomatic. CV recommends medical management with aggressive control of CV risk factors. Patient will be on antiplatelets Plavix. Consider statin if LFT abnormalities improved Urinary tract infection On IV Cipro every 12 hours urine culture shows Escherichia coli resistant to Cipro change to Bactrim last dose today Acute renal failure Resolved with gentle IV fluid hydration, monitor BUN and creatinine and avoid all nephrotoxic drugs. Impaired fasting glucose/hyperglycemia Resolved No known history of diabetes type 2, hemoglobin A1c 6.2 Normocytic normochromic anemia. No gross bleeding. Stable. Check Hemoccult. Continue to monitor while on heparin drip Constipation. Started Neha-Colace. DVT prophylaxis Heparin Discharge Planning Discharge when cleared by hematology/oncology Problem Qualifiers (1) Urinary tract infection: Qualified Code: N30.00 - Acute cystitis without hematuria Danyel Griffin MD Oct 06, 2016 09:32
[2016-10-06] MEDS ORDERED: SENN1TAB PO (09:34)
--- NOTE | 2016-10-06 09:35 | HHI.DCPOC ---
Discharge Care Plan Diagnosis: (1) Arterial occlusion Your Health Problems Are: Difficulty with ADL Exercise Tolerance Goals to Promote Your Health * To prevent worsening of your condition and complications * To maintain your health at the optimal level Directions to Meet Your Goals Take your medications as prescribed Follow your dietary instruction Follow activity as directed Keep your appointments as scheduled Take your immunizations and boosters as scheduled If your symptoms worsen call your PCP, if no PCP go to Urgent Care Center or Emergency Room Smoking is Dangerous to Your Health. Avoid second hand smoke Call the 24-hour hour crisis hotline for domestic abuse at Danyel Griffin MD Oct 06, 2016 09:35
[2016-10-06 11:08] LABS: AUTOMATED NEUTROPHIL # 5.7 TH/MM3 (1.8-7.7); BASOPHIL # 0.1 TH/MM3 (0-0.2); BASOPHIL % 1.2 % (0.0-2.0); EOSINOPHIL # 0.3 TH/MM3 (0-0.4); EOSINOPHIL % 3.8 % (0.0-4.0); HEMATOCRIT 32.3 % (35.0-46.0); HEMO FLAGS DIFF FINAL; LYMPH % 16.9 % (9.0-44.0); LYMPHOCYTE # 1.4 TH/MM3 (1.0-4.8); MEAN CELL VOLUME 94.2 FL (80.0-100.0); MEAN CORPUSCULAR HEMOGLOBIN 31.9 PG (27.0-34.0); MEAN CORPUSCULAR HGB CONC 33.9 % (32.0-36.0); MONO % 7.3 % (0.0-8.0); NEUT % 70.8 % (16.0-70.0); PLATELET COUNT 558 TH/MM3 (150-450); RED BLOOD COUNT 3.43 MIL/MM3 (4.00-5.30); RED CELL DISTRIBUTION WIDTH 16.5 % (11.6-17.2); WHITE BLOOD COUNT 8.1 TH/MM3 (4.0-11.0)
[2016-10-06 11:27] LABS: APTT (PATIENT) 31.8 SEC (24.3-30.1)
[2016-10-06 11:40] LABS: BICARBONATE 23.2 MEQ/L (21.0-32.0); POTASSIUM 4.5 MEQ/L (3.5-5.1)
[2016-10-06] MEDS ORDERED: LIDOCAINE 1%/EPINEPHrine 1:100,000 SOLN 20 ML VIAL ONE (14:33)
[2016-10-06] MEDS ORDERED: MIDAZOLAM HCL 2 MG/2 ML VIAL ONE (14:39)
--- NOTE | 2016-10-06 16:57 | RADRPT ---
EXAM DATE/TIME: 10/06/2016 15:18 [facility] COMPARISON: No previous studies available for comparison. INDICATIONS : Metastatic disease; liver mass. SEDATION TIME: 30 minutes BIOPSY SITE: liver MEDICATION(S): 1.) 3 mg midazolam (Versed) IV 2.) 150 mcg fentanyl (Sublimaze) IV DEVICE(S): 1.) 20 gauge Temno core biopsy needle MEDICAL HISTORY : Metastatic disease SURGICAL HISTORY : Tubal ligation. ENCOUNTER: Initial ACUITY: 1 day PAIN SCORE: 0/10 LOCATION: liver A total of one core specimen(s) were obtained and sent to the laboratory for pathologic evaluation. PROCEDURE: 1. CT guided liver biopsy. 2. Conscious sedation with continuous EKG and oximetry monitoring. 3. EKG and oximetry remained stable throughout the procedure. Prior to the procedure informed consent was obtained. Any appropriate prior imaging studies were rev iewed. Using automated exposure control and adjustment of the mA and/or kV according to patient size, radiat ion dose was kept as low as reasonably achievable to obtain optimal diagnostic quality images. DICOM format image data is available electronically for review and comparison. The site was prepped in a sterile fashion. Full sterile technique was used, including cap, mask, evens rile gloves and gown and a large sterile sheet. Hand hygiene and 2% chlorhexidine and/or betadine/al cohol prep was utilized per protocol for cutaneous antisepsis. The skin and subcutaneous tissues wer e infiltrated with local anesthetic solution. With CT guidance the previously identified target was localized. Biopsy was performed using the presc ribed needle as above. Adequate hemostasis was obtained with compression at the puncture site. Follow-up CT scan reveals no hemorrhage. The patient tolerated the procedure well and there were no complications. The patient was returned to the Radiology Outpatient Unit in stable condition. CONCLUSION: Uncomplicated CT guided biopsy of central liver lesion. Moe Li MD on October 06, 2016 at 16:54 Board Certified Radiologist. This report was verified electronically.
--- NOTE | 2016-10-06 19:20 | PD.ONC.PN ---
Subjective Subjective Remarks Pt state that her carotid was blocked completely many years ago, pointed to her Left but not sure which side for certain. Reports that the other side was partial. Objective Data Date Time Temp Pulse Resp B/P Pulse Ox O2 Delivery O2 Flow Rate FiO2 10/06/16 17:08 61 18 101/60 97 10/06/16 16:38 68 19 108/57 98 10/06/16 16:08 98.0 68 18 110/57 97 10/06/16 16:00 97.6 72 14 143/71 100 10/06/16 12:00 97.6 60 16 108/51 99 10/06/16 12:00 67 10/06/16 08:00 62 10/06/16 08:00 97.9 72 16 108/99 96 10/06/16 04:09 66 10/06/16 03:32 97.5 60 18 110/46 97 10/06/16 00:21 95.6 60 18 116/60 100 10/06/16 00:15 64 10/05/16 21:40 96 Nasal Cannula 2.00 10/05/16 20:23 98.4 67 18 118/58 97 10/05/16 20:06 68 10/06/16 10/06/16 10/06/16 07:00 15:00 23:00 Intake Total 45 ml 0 ml Output Total 300 ml 600 ml Balance -255 ml -600 ml Result Diagram: 10/06/16 1026 10/06/16 1026 Laboratory Results Laboratory Tests Test 10/06/16 10:26 White Blood Count 8.1 TH/MM3 Red Blood Count 3.43 MIL/MM3 Hemoglobin 10.9 GM/DL Hematocrit 32.3 % Mean Corpuscular Volume 94.2 FL Mean Corpuscular Hemoglobin 31.9 PG Mean Corpuscular Hemoglobin 33.9 % Concent Red Cell Distribution Width 16.5 % Platelet Count 558 TH/MM3 Mean Platelet Volume 7.2 FL Neutrophils (%) (Auto) 70.8 % Lymphocytes (%) (Auto) 16.9 % Monocytes (%) (Auto) 7.3 % Eosinophils (%) (Auto) 3.8 % Basophils (%) (Auto) 1.2 % Neutrophils # (Auto) 5.7 TH/MM3 Lymphocytes # (Auto) 1.4 TH/MM3 Monocytes # (Auto) 0.6 TH/MM3 Eosinophils # (Auto) 0.3 TH/MM3 Basophils # (Auto) 0.1 TH/MM3 CBC Comment DIFF FINAL Differential Comment Activated Partial 31.8 SEC Thromboplast Time Sodium Level 135 MEQ/L Potassium Level 4.5 MEQ/L Chloride Level 101 MEQ/L Carbon Dioxide Level 23.2 MEQ/L Anion Gap 11 MEQ/L Blood Urea Nitrogen 9 MG/DL Creatinine 0.97 MG/DL Estimat Glomerular Filtration 59 ML/MIN Rate Random Glucose 98 MG/DL Calcium Level 9.2 MG/DL Imaging Studies Last 24 hours Impressions Liver Biopsy CT 10/06/16 0000 Signed Impressions: Service Date/Time: Thursday, October 06, 2016 15:18 - CONCLUSION: Uncomplicated CT guided biopsy of central liver lesion. Moe Li MD Administered Medications Medications (Trade) Dose Ordered Sig/[place] Route PRN Reason Start Time Stop Time Status Last Admin Dose Admin Sodium Chloride (NS Flush) 2 ml BID IV FLUSH 10/01/16 09:00 10/05/16 10:15 Morphine Sulfate 1 mg 1 mg Q6H PRN IV PUSH breakthru pain 10/01/16 17:15 10/06/16 08:43 Heparin Sodium/ Dextrose (Heparin-D5W Inj) 250 ml @ 0 mls/hr TITRATE IV 10/02/16 12:30 10/03/16 18:29 Acetaminophen/ Hydrocodone Bitart ([place] 5-325 Mg) 1 tab Q4H PRN PO pain 3-10 10/03/16 10:00 10/03/16 22:44 Trimethoprim/ Sulfamethoxazole (Bactrim Ds 800-160 Mg) 1 tab Q12HR PO 10/03/16 21:00 10/06/16 20:59 10/05/16 21:49 Senna/Docusate Sodium (Neha-Colace) 1 tab BID PO 10/04/16 09:00 10/05/16 21:50 Potassium Chloride (KCl) 40 meq Q12HR PO 10/04/16 10:00 10/05/16 21:50 Magnesium Oxide (Mag-Ox) 400 mg Q12HR PO 10/04/16 10:00 10/05/16 21:50 Objective Remarks GENERAL: Cachetic older female, resting in bed in no distress. SKIN: Warm and dry. Dry around neck. HEAD: Normocephalic. EYES: No injection or drainage. NECK: Supple, trachea midline. CARDIOVASCULAR: Regular rate and rhythm without murmurs. RESPIRATORY: Clear anteriorly. Breathing unlabored. GASTROINTESTINAL: Abdomen soft, non-tender, nondistended. EXTREMITIES: No cyanosis, or edema. NEUROLOGICAL: No obvious focal deficit. Awake, alert, and oriented x3. Assessment/Plan Problem List: (1) Arterial occlusion Status: Acute Plan: 10/06/16. L foot stable, no recurrence, s/p liver biopsy delay restarting ASA/Plavix until AM. Hold off on UFH due to recent biopsy at 3PM. Discussed antiplatelet therapy, previously tolerated ASA/Plavix well. Disease is mainly in the arterial side. CTA aorta with runoff-->++ occlusion of the left common femoral artery with thrombus extending to the origin of the profunda and superior femoral artery. --s/p local thrombolytic therapy on 10.01 --will need anticoagulant therapy or at least antiplatelet therapy after her thrombolytic therapy. --Carotid U/S: shows complete occlusion on left. high grade stenosis on the right. --echo: shows EF 50%; aortic and mitral valve regurgitation (2) Metastatic disease Status: Acute Plan: 10/06/16. Liver biopsy for diagnosis. Plan to follow up as out patient. Further recommendations depend on pathology CTA--> bilateral adrenal masses, numerous by lobar low density hepatic masses consistent with metastatic disease and bilateral adnexal masses suspected to be ovarian etiology. There is also an ill-defined lesion in the spleen. tumor markers WNL --CT guided biopsy ordered, on hold as patient just had tpa. -- fs faxed to new patient referrals for outpatient follow up in 1-2 weeks (3) Reactive thrombocytosis Status: Acute Plan: 10/06/16. Persistent thrombocytosis. Consider ET, chronic myeloproliferative disorder. Noted mild anemia. Follow. --no specific therapy is required for the reactive thrombocytosis. --will continue to follow on an outpatient basis. --in last CBC was from 2002, her white blood cell count and platelet count were normal. 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 h/o Chronic tobacco use Reactive thrombocytosis Chronic dry mouth Prior uvular cancer CVA Nephrolithiasis Plan 1. OK to DC from heme/onc standpoint, FU in clinic this Thursday to review pathology. 2. Resume ASA/Plavix in AM 3. Monitor for bleeding post liver biopsy. Marine Ventura MD Oct 06, 2016 19:20 Marine Ventura MD Oct 06, 2016 19:20
[2016-10-07] VITALS (7 sets, daily range): BP systolic 100–129; BP diastolic 55–74; PULSE 63–85; RESP 15–18; TEMP 96.2–97.8; O2SAT 98–100
[2016-10-07 06:34] LABS: AUTOMATED NEUTROPHIL # 5.3 TH/MM3 (1.8-7.7); BASOPHIL # 0.1 TH/MM3 (0-0.2); BASOPHIL % 1.3 % (0.0-2.0); EOSINOPHIL # 0.3 TH/MM3 (0-0.4); EOSINOPHIL % 4.1 % (0.0-4.0); HEMATOCRIT 30.6 % (35.0-46.0); HEMO FLAGS DIFF FINAL; LYMPH % 16.2 % (9.0-44.0); LYMPHOCYTE # 1.2 TH/MM3 (1.0-4.8); MEAN CELL VOLUME 95.4 FL (80.0-100.0); MEAN CORPUSCULAR HEMOGLOBIN 32.9 PG (27.0-34.0); MEAN CORPUSCULAR HGB CONC 34.5 % (32.0-36.0); MONO % 9.8 % (0.0-8.0); NEUT % 68.6 % (16.0-70.0); PLATELET COUNT 453 TH/MM3 (150-450); RED BLOOD COUNT 3.21 MIL/MM3 (4.00-5.30); WHITE BLOOD COUNT 7.7 TH/MM3 (4.0-11.0)
[2016-10-07 06:53] LABS: APTT (PATIENT) 31.1 SEC (24.3-30.1)
[2016-10-07 07:01] LABS: ALT (GPT) 43 U/L (10-53); ANION GAP 8 MEQ/L (5-15); AST (GOT) 24 U/L (15-37); BICARBONATE 23.8 MEQ/L (21.0-32.0); BLOOD UREA NITROGEN 14 MG/DL (7-18); CHLORIDE 102 MEQ/L (98-107); GLOMERULAR FILTRATION RATE 60 ML/MIN (>89); MAGNESIUM 2.1 MG/DL (1.5-2.5); POTASSIUM 4.2 MEQ/L (3.5-5.1); SODIUM (NA) 134 MEQ/L (136-145)
[2016-10-07 07:04] LABS: ALKALINE PHOSPHATASE 223 U/L (45-117); TOTAL BILIRUBIN ADULT 0.7 MG/DL (0.2-1.0)
[2016-10-07] MEDS ORDERED: ASPIRIN EC 81 MG TABEC PO SCH (09:00)
[2016-10-07] MEDS: DOCUSATE SODIUM 50 MG/SENNA 8.6 MG TAB PO SCH (09:00)
[2016-10-07] MEDS ORDERED: CLOPIDOGREL 75 MG TAB PO SCH (09:00)
[2016-10-07] MEDS: POTASSIUM CHLORIDE 20 MEQ CONTROLLED RELEASE TAB PO SCH (09:00)
[2016-10-07] MEDS: MAGNESIUM OXIDE 400 MG TAB PO SCH (11:11)
[2016-10-07] MEDS: SODIUM CHLORIDE 0.9% FLUSH 10 ML FLUSH IV FLUSH SCH (11:19)
[2016-10-07] MEDS ORDERED: SIMV40TA PO (11:19)
[2016-10-07] MEDS ORDERED: PLAV75TA29 PO (11:19)
--- NOTE | 2016-10-07 11:19 | HHI.DS ---
Discharge Summary Admission Date Oct 01, 2016 at 02:17 Discharge Date: Oct 07, 2016 Admitting Diagnosis arterial occlusion (1) Arterial occlusion ICD Code: I74.9 (2) Ovarian malignant neoplasm ICD Code: C56.9 (3) Urinary tract infection ICD Code: N39.0 (4) Acute renal failure ICD Code: N17.9 (5) IFG (impaired fasting glucose) ICD Code: R73.01 (6) Metastatic disease ICD Code: C79.9 Procedures TPA and thrombectomy Brief History - From Admission 61 year-old female with a history of tobacco abuse presented yesterday to the ED for evaluation of an acute onset of left lower extremity numbness and weakness which according to patient persisted intensity she was seen in the ED. CTA aorta run off was ordered and revealed left femoral artery occlusion for which interventional radiology was consulted and patient underwent angioplasty,TPA pulse spray and angiojet thrombectomy. Case was discussed with interventional radiologist. Patient is seen in the [facility] and complains of left lower extremity pain, although she had palpable pulses. 61-year-old female who presents to the emergency Department with onset of numbness and weakness in her left leg that started at around 3:00 this afternoon. She says she intermittently sat on the couch and then tried to walk around hoping it would go away but it hasn't minutes persisted throughout the day prompting her to come to the emergency department at 10:30 this evening. She denies any headache, difficulty speaking or upper extremity weakness. She has no pain in her feet. She had a stroke 3 years ago after which she had some difficulty speaking. She currently takes Plavix. She also has a remote history of uvular cancer. CBC/BMP: 10/07/16 0558 10/07/16 0558 Significant Findings Laboratory Tests Test 10/05/16 10/06/16 10/07/16 07:26 10:26 05:58 Red Blood Count 3.28 MIL/MM3 3.43 MIL/MM3 3.21 MIL/MM3 (4.00-5.30) (4.00-5.30) (4.00-5.30) Hemoglobin 10.3 GM/DL 10.9 GM/DL 10.6 GM/DL (11.6-15.3) (11.6-15.3) (11.6-15.3) Hematocrit 31.1 % 32.3 % 30.6 % (35.0-46.0) (35.0-46.0) (35.0-46.0) Platelet Count 518 TH/MM3 558 TH/MM3 453 TH/MM3 (150-450) (150-450) (150-450) Activated Partial 51.1 SEC 31.8 SEC 31.1 SEC Thromboplast Time (24.3-30.1) (24.3-30.1) (24.3-30.1) Estimat Glomerular Filtration 66 ML/MIN (>89) 59 ML/MIN (>89) 60 ML/MIN (>89) Rate Random Glucose 110 MG/DL (74-106) Neutrophils (%) (Auto) 70.8 % (16.0-70.0) Sodium Level 135 MEQ/L 134 MEQ/L (136-145) (136-145) Monocytes (%) (Auto) 9.8 % (0.0-8.0) Eosinophils (%) (Auto) 4.1 % (0.0-4.0) Alkaline Phosphatase 223 U/L (45-117) Albumin 2.8 GM/DL (3.4-5.0) PE at Discharge Well-developed asthenic in no distress Neck no JVD, positive bruit right carotid Regular rate and rhythm no murmur Clear to auscultation no wheezes Bilateral lower extremities no edema, cyanosis with palpable pulses No change in PE from previous Pt update on day of discharge Patient reports she is feeling good today. She wants to go home. No abdominal pain, nausea, or vomiting. Hospital Course 61 year-old female admitted and treated for the following: Ovarian malignant neoplasm with possible metastases? CT abdomen/pelvics with finding of Large bilateral adrenal masses and numerous bilobar low density hepatic masses consistent with metastatic disease.Bilateral adnexal prominence/masses, likely ovarian in etiology. LDH high otherwise other tumor marker including CA 125, CEA, AFP within normal limit limit Patient underwent CT-guided biopsy of the liver and will follow-up results with oncology outpatient. Left lower extremity Arterial occlusion Status post angioplasty, TPA pulse spray and angiojet thrombectomy On heparin drip then switch to plavix post bx Echocardiogram without clots. PVD with abnormal CTA with the following results Occluded left carotid system from the origin of the common carotid artery to the cavernous intracranial segment. 2. High-grade segmental stenotic lesion in the proximal right common carotid artery History of left CVA. Patient asymptomatic. CV recommends medical management with aggressive control of CV risk factors. Patient will be on antiplatelets Plavix. Statin added on discharge. Urinary tract infection Patient initially treated with IV Cipro every 12 hours, urine culture shows Escherichia coli resistant to Cipro which was changed to Bactrim and she completed treatment. Acute renal failure Resolved with gentle IV fluid hydration Impaired fasting glucose/hyperglycemia Resolved No known history of diabetes type 2, hemoglobin A1c 6.2 Pt Condition on Discharge: Good Discharge Disposition: Discharge Home Discharge Time: > 30 minutes Discharge Instructions DIET: Follow Instructions for: As Tolerated, No Restrictions Activities you can perform: Regular-No Restrictions Follow up Referrals: Oncology - 1 Week PCP Follow-up - 1 Week New Medications: Simvastatin (Simvastatin) 40 Mg Tab 40 MG PO HS Cholesterol Management #30 Ref 0 TAB Sennosides-Docusate Sodium (Senna Plus 8.6-50 mg) 1 Tab Tab 1 TAB PO BID Prevent Constipation #60 TAB Continued Medications: Clopidogrel (Plavix) 75 Mg Tab 75 MG PO DAILY Blood Clot Prevention #30 Ref 0 TAB (This prescription has been renewed) Leeanna Callahan MD Oct 07, 2016 11:19
[2016-10-07] MEDS ORDERED: ASPI-99 PO (11:47)
[2016-10-07] MEDS ORDERED: WALKER WHEELS/F1 MIS (13:48)
--- NOTE | 2016-10-07 13:49 | HHI.FF ---
Face to Face Verification Diagnosis: (1) Arterial occlusion (2) Metastatic disease (3) Physical deconditioning Physical Therapy Order: Evaluate and Treat, Improve ambulation, Strength and gait training Home Health Nursing Order: Medical education Medication education-adverse effect Nursing assessment with vital signs I have seen patient Alley Joshi on 10/07/16. My clinical findings support the need for the requested home health care services because: Ltd mobility - disease progression Deconditioned w/ increased weakness I certify that my clinical findings support that this patient is homebound because: Unsteady gait/balance Leeanna Callahan MD Oct 07, 2016 13:49
== END 2016-10-07 17:21 | disposition home health service (06) | DRG 271 ==
LOC: PHED 22:20 → PHEDA 10-01 02:17 → NEDA 10-01 08:15 → HCVR 10-01 14:38 → HOCB 10-02 10:17
PROVIDERS: ADMIT Family Medicine; ATTEND Family Medicine
PROC: 047L3ZZ Dilation of Left Femoral Artery, Percutaneous Approach (ICD-10-PCS; principal; 2016-10-01)
PROC: 04CL3ZZ Extirpation of Matter from Left Femoral Artery, Percutaneous Approach (ICD-10-PCS; 2016-10-01)
PROC: 04CN3ZZ Extirpation of Matter from Left Popliteal Artery, Percutaneous Approach (ICD-10-PCS; 2016-10-01)
PROC: 3E05317 Introduction of Other Thrombolytic into Peripheral Artery, Percutaneous Approach (ICD-10-PCS; 2016-10-01)
PROC: B41G1ZZ Fluoroscopy of Left Lower Extremity Arteries using Low Osmolar Contrast (ICD-10-PCS; 2016-10-01)
PROC: 0FB03ZX Excision of Liver, Percutaneous Approach, Diagnostic (ICD-10-PCS; 2016-10-06)
DX: I74.3 Embolism and thrombosis of arteries of the lower extremities (principal); N17.9 Acute kidney failure, unspecified; R64 Cachexia; E87.2 Acidosis; N39.0 Urinary tract infection, site not specified; Z68.1 Body mass index [BMI] 19.9 or less, adult; I65.22 Occlusion and stenosis of left carotid artery; R73.01 Impaired fasting glucose; B96.20 Unspecified Escherichia coli [E. coli] as the cause of diseases classified elsewhere; R68.2 Dry mouth, unspecified; K76.9 Liver disease, unspecified; E27.9 Disorder of adrenal gland, unspecified; N83.9 Noninflammatory disorder of ovary, fallopian tube and broad ligament, unspecified; N20.0 Calculus of kidney; F17.210 Nicotine dependence, cigarettes, uncomplicated; D64.9 Anemia, unspecified; D75.89 Other specified diseases of blood and blood-forming organs; K59.00 Constipation, unspecified; Z85.818 Personal history of malignant neoplasm of other sites of lip, oral cavity, and pharynx; Z92.21 Personal history of antineoplastic chemotherapy; Z92.3 Personal history of irradiation; Z16.23 Resistance to quinolones and fluoroquinolones; Z86.73 Personal history of transient ischemic attack (TIA), and cerebral infarction without residual deficits; Z88.0 Allergy status to penicillin
CPT/HCPCS: 36247; 37184; 37211; 37224; 47000; 70450; 70498; 71010; 75635; 75716; 76937; 77012; 80048; 80053; 80061; 80074; 81001; 82105; 82378; 82948; 83036; 83605; 83615; 83735; 85025; 85027; 85576; 85610; 85730; 86304; 87040; 87077; 87086; 87186; 88307; 93005; 93306; 93880; 96361; 96365; 99152; 99153; C1725; C1757; C1769; C1887; C1894; J0744; J1644; J2250; J2270; J2405; J2997; J3010; J7030; J7040; P9612; Q9967

== ENCOUNTER 2016-10-21 06:27 | Day surgery (SDC) | payer BC ==
[2016-10-21] VITALS (10 sets, daily range): BP systolic 75–177; BP diastolic 53–95; PULSE 65–77; RESP 16–18; TEMP 97.5; O2SAT 96–98
[~2016-10-21] VITALS: Ht 160 cm; Wt 40.0 kg
[~2016-10-21 06:27] MED LIST changes: +ASPI-99 PO; -ASPI325T PO; -CLOP75 PO; +PLAV75TA29 PO; +SENN1TAB PO; +SIMV40TA PO; +WALKER WHEELS/F1 MIS
[2016-10-21] MEDS ORDERED: ENOX30P SQ (06:49)
[2016-10-21] MEDS ORDERED: SODIUM CHLOR 0.9% 1000 ML IV SCH (07:00)
[2016-10-21] MEDS ORDERED: LIDOCAINE 1%/EPINEPHrine 1:100,000 SOLN 20 ML VIAL ONE (07:07)
[2016-10-21 07:27] LABS: APTT (PATIENT) 31.3 SEC (24.3-30.1); INTERNATIONAL NORMALIZED RATIO 1.1 RATIO; PROTHROMBIN TIME - PATIENT 12.7 SEC (9.8-11.6)
[2016-10-21] MEDS ORDERED: fentaNYL CITRATE 250 MCG/5 ML AMP ONE (07:54)
[2016-10-21] MEDS ORDERED: MIDAZOLAM HCL 2 MG/2 ML VIAL ONE (07:54)
--- NOTE | 2016-10-21 09:12 | PD.RAD ---
Post CT Procedure Prog Note Pre Procedure Diagnosis: (1) Lesion of liver Post Procedure Diagnosis: (1) Lesion of liver Procedure Date: Oct 21, 2016 Supervising Radiologist: Mitch Dixon Estimated blood loss: minimal Anesthesia: Conscious Sedation Plan of Activity Patient to Unit: [facility] Patient Condition: Good See PACS Report for procedural detail/treatment Biopsy Side: Left Biopsy Procedure: Liver Site: biopsy performed of one of the left lobe liver lesions. Specimen: Core Biopsy Additional Detail: touch prep performed and pathologist reports one sample is necrotic and one is diagnostic. Plan to [facility] for monitoring then discharge to home. Mitch Dixon MD Oct 21, 2016 09:11
[2016-10-21] MEDS ORDERED: HYDROmorphone HCL PF 2 MG/ML VIAL ONE (09:13)
[2016-10-21] MEDS ORDERED: HYDROmorphone HCL 2 MG TAB PO PRN (09:15)
--- NOTE | 2016-10-21 09:43 | RADRPT ---
EXAM DATE/TIME: 10/21/2016 08:12 [facility] COMPARISON: CT NEEDLE BIOPSY LIVER, October 06, 2016, 15:18. Outside MRI was reviewed. INDICATIONS : Liver mass. SEDATION TIME: 60 minutes BIOPSY SITE: liver MEDICATION(S): 1.) 1.5 mg midazolam (Versed) IV 2.) 75 mcg fentanyl (Sublimaze) IV 3.) 1 mg hydromorphone (Dilaudid) IV DEVICE(S): 1.) 17 gauge introducer 10cm 2.) 18 gauge Temno core biopsy needle 15cm MEDICAL HISTORY : Head and neck cancer, smoker SURGICAL HISTORY : None. ENCOUNTER: Initial ACUITY: 1 day PAIN SCORE: 0/10 LOCATION: Right lateral A total of five core specimen(s) were obtained and sent to the laboratory for pathologic evaluation. PROCEDURE: 1. CT guided liver biopsy. 2. Conscious sedation with continuous EKG and oximetry monitoring. Prior to the procedure informed consent was obtained. Any appropriate prior imaging studies were rev iewed. Using automated exposure control and adjustment of the mA and/or kV according to patient size, radiat ion dose was kept as low as reasonably achievable to obtain optimal diagnostic quality images. DICOM format image data is available electronically for review and comparison. The site was prepped in a sterile fashion. Full sterile technique was used, including cap, mask, evens rile gloves and gown and a large sterile sheet. Hand hygiene and 2% chlorhexidine and/or betadine/al cohol prep was utilized per protocol for cutaneous antisepsis. The skin and subcutaneous tissues wer e infiltrated with local anesthetic solution. Initial CT scanning demonstrates innumerable lesions in both lobes. On recent MRI many appear necroti c centrally. I decided to avoid the lesion that was sampled previously since it was nondiagnostic and appears necrotic on MRI. With CT guidance, one of the left lobe liver lesions was localized. Biopsy was performed using the prescribed needle as above. Adequate hemostasis was obtained with compressio n at the puncture site. Follow-up CT scan reveals no hemorrhage or acute abnormality. Touch prep was performed on 2 samples. One of the samples is reported as nondiagnostic due to necrosis and the other is reported as diagnost ic. The patient tolerated the procedure well and there were no complications. The patient was returned to the Radiology Outpatient Unit in stable condition. CONCLUSION: Uncomplicated CT guided biopsy of a left lobe liver mass. Mitch Dixon MD on October 21, 2016 at 9:39 Board Certified Radiologist. This report was verified electronically.
--- NOTE | 2016-10-21 11:10 | RADRPT ---
EXAM DATE/TIME: 10/21/2016 10:48 [facility] COMPARISON: No previous studies available for comparison. INDICATIONS : Post liver biopsy. Possible crossing of the pleural space during biopsy. MEDICAL HISTORY : Metastatic disease. Stroke. SURGICAL HISTORY : None. ENCOUNTER: Initial ACUITY: 1 day PAIN SCORE: 0/10 LOCATION: Bilateral chest FINDINGS: Upright expiratory view of the chest demonstrates no pneumothorax. No other acute finding is identifi ed. There are bilateral breast implants. CONCLUSION: No pneumothorax is visualized. Mitch Dixon MD on October 21, 2016 at 11:08 Board Certified Radiologist. This report was verified electronically.
== END 2016-10-21 14:00 | disposition home or self-care (01) ==
LOC: HRAD 06:27 → HRIP 06:42 → HRAD 14:00
PROVIDERS: ATTEND Internal Medicine Hematology & Oncology
DX: C78.7 Secondary malignant neoplasm of liver and intrahepatic bile duct (principal); C05.2 Malignant neoplasm of uvula; F17.200 Nicotine dependence, unspecified, uncomplicated; Z86.73 Personal history of transient ischemic attack (TIA), and cerebral infarction without residual deficits
CPT/HCPCS: 47000; 71010; 77012; 85610; 85730; 88307; 88333; 88341; 88342; J1170; J2250; J3010; J7030

== ENCOUNTER 2016-10-27 11:51 | Day surgery (SDC) | payer BC ==
[~2016-10-27 11:51] MED LIST changes: +ENOX30P SQ
[2016-10-27 12:05] VITALS: BP 82/57; PULSE 71; RESP 18; TEMP 97.8; O2SAT 100
[2016-10-27] MEDS ORDERED: oxyCODONE/ACETAMINOPHEN 5 MG/325 MG TAB PO ONE (14:30)
--- NOTE | 2016-10-27 16:18 | RADRPT ---
EXAM DATE/TIME: 10/27/2016 15:18 [facility] COMPARISON: No previous studies available for comparison. INDICATIONS : Diffuse abdomen pain. ORAL CONTRAST: No oral contrast ingested. RADIATION DOSE: 6.64 CTDIvol (mGy) MEDICAL HISTORY : uvula cancer SURGICAL HISTORY : Tubal ligation. ENCOUNTER: Initial ACUITY: 1 day PAIN SCALE: 7/10 LOCATION: Bilateral abdomen TECHNIQUE: Volumetric scanning of the abdomen was performed. Using automated exposure control and adjustment of the mA and/or kV according to patient size, radiation dose was kept as low as reasonably achievable to obtain optimal diagnostic quality images. DICOM format image data is available electronically for review and comparison. FINDINGS: LOWER LUNGS: Small area of consolidation/atelectasis in the right base. Lung bases are otherwise clear. Bilateral breast augmentation. LIVER: Multiple hepatic mass lesions. These are characteristic of metastatic disease SPLEEN: Normal size without lesion. PANCREAS: Within normal limits. KIDNEYS: Normal in size and shape. A small, nonobstructing left renal calculi. Benign-appearing parenchymal ca lcification in the right kidney. ADRENAL GLANDS: Mass lesions in both adrenals. Left measures 4.4 x 3.4 the right 2.4 x 4.3 cm. AORTA/RETROPERITONEAL: There is no aneurysm or lymphadenopathy. BOWEL/MESENTERY: The stomach and visualized small and large bowel demonstrate no abnormality. MUSCULOSKELETAL: Within normal limits for patient age. CONCLUSION: 1. Very small pleural-based area of consolidation in the right base is probably atelectatic in nature . Lung bases are otherwise clear. 2. Multiple hepatic metastasis with bilateral adrenal masses. 3. Otherwise, no perihepatic fluid collection to suggest postbiopsy bleeding. Except for the aforemen tioned metastatic deposits, no obvious etiology for the patient's current clinical symptoms. 4. Left renal calculi. These are sub-centimeters in nonobstructing.. Guero Klein MD on October 27, 2016 at 16:00 Board Certified Radiologist. This report was verified electronically.
== END 2016-10-27 16:10 | disposition home or self-care (01) ==
LOC: HROP 11:51 → HRIP 11:54 → HROP 16:10
PROVIDERS: ATTEND Radiology Body Imaging
DX: R10.9 Unspecified abdominal pain (principal); R06.02 Shortness of breath; K76.9 Liver disease, unspecified; E27.8 Other specified disorders of adrenal gland; N20.0 Calculus of kidney; Z85.818 Personal history of malignant neoplasm of other sites of lip, oral cavity, and pharynx
CPT/HCPCS: 74150; 99211; G0463

== ENCOUNTER 2016-11-07 11:06 | Emergency (ER) | payer BC ==
[~2016-11-07] VITALS: Ht 160 cm; Wt 35.0 kg
[2016-11-07 11:10] VITALS: PULSE 109; RESP 15; TEMP 98.4; O2SAT 100
[2016-11-07 11:21] VITALS: BP 87/65; PULSE 96; RESP 20; O2SAT 99
[2016-11-07] MEDS ORDERED: SODIUM CHLOR 0.9% 1000 ML INJ 1,000 ML IV ONE (11:30)
--- NOTE | 2016-11-07 11:33 | PD ---
HPI Chief Complaint: Abnormal Results Time Seen by Provider: 11:18 Travel History International Travel<30 days: No Contact w/Intl Traveler<30days: No Traveled to known affect area: No History of Present Illness HPI The patient was seen and examined in the presence of the nurse. This patient was sent over from the oncology center because of hypotension. Patient has extensive metastatic cancer throughout her abdomen and pelvis. She has had one dose of chemotherapy. She complains of generalized weakness. Denies fever or chest pain or shortness of breath or abdominal pain. No vomiting or diarrhea. She has very poor calorie intake. She is very malnourished. She wants to be full code. Symptoms are severe. No alleviating factors. Duration is worsening over the last 6 months PFSH Past Medical History Hx Anticoagulant Therapy: Yes Cancer: Yes ([place] cancer, LUNG WITH METS TO LIVER) Cardiovascular Problems: No Chemotherapy: Yes Cerebrovascular Accident: Yes (2009) Diabetes: No Diminished Hearing: No Endocrine: No Genitourinary: No Hiatal Hernia: No Immune Disorder: No Musculoskeletal: No Neurologic: No Reproductive: No Respiratory: No Immunizations Current: No Radiation Therapy: Yes Thyroid Disease: No Menopausal: Yes : 3 Para: 2 Tubal Ligation: Yes Past Surgical History Cardiac Surgery: No Ear Surgery: No Endocrine Surgery: No Eye Surgery: No Joint Replacement: No Other Surgery: Yes ([place]vula surgery , TUBAL LIGATION) Social History Alcohol Use: No Tobacco Use: Yes Substance Use: Yes (marijuana occasionally) Allergies-Medications (Allergen,Severity, Reaction): Coded Allergies: ampicillin (Unverified Allergy, Intermediate, Rash, 11/07/16) Uncoded Allergies: AMPICILLIN-RASH (Allergy, Intermediate, Rash, 05/02/09) NKA (Allergy, Unknown, 11/28/02) Reported Meds & Prescriptions Reported Meds & Active Scripts Active Walker with Front Wheels (Device) 1 Mis Mis 1 Ea .ROUTE DIRECTED Adult Aspirin EC Low Strength (Aspirin) 81 Mg Tabec 81 Mg PO DAILY Simvastatin 40 Mg Tab 40 Mg PO HS Plavix (Clopidogrel Bisulfate) 75 Mg Tab 75 Mg PO DAILY Senna Plus 8.6-50 mg (Sennosides-Docusate Sodium) 1 Tab Tab 1 Tab PO BID Reported Lovenox Inj (Enoxaparin Sodium) 30 Mg/0.3 Ml Syr 30 Mg SQ BID Review of Systems General / Constitutional: Positive: Weight Loss, No: Fever Eyes: No: Visual changes HENT: No: Headaches Cardiovascular: No: Chest Pain or Discomfort Respiratory: No: Shortness of Breath Gastrointestinal: Positive: Loss of Appetite, No: Abdominal Pain Genitourinary: No: Dysuria Musculoskeletal: Positive: Weakness, No: Pain Skin: No Rash Neurologic: Positive: Weakness Psychiatric: No: Depression Endocrine: No: Polydipsia Hematologic/Lymphatic: No: Easy Bruising Physical Exam Narrative GENERAL: Very malnourished patient in no apparent distress. SKIN: Focused skin assessment reveals no rash and nodules. Skin is Warm and dry. HEAD: Atraumatic. Normocephalic. EYES: Pupils equal and round. No scleral icterus. No injection or drainage. ENT: No nasal bleeding or discharge. Mucous membranes pink and moist. NECK: Trachea midline. No JVD. CARDIOVASCULAR: Regular rate and rhythm. No murmur appreciated. RESPIRATORY: No accessory muscle use. Clear to auscultation. Breath sounds equal bilaterally. GASTROINTESTINAL: Abdomen soft, non-tender, nondistended. Hepatic and splenic margins not palpable. MUSCULOSKELETAL: No obvious deformities. No clubbing. No cyanosis. No edema. NEUROLOGICAL: Awake and alert. No obvious cranial nerve deficits. Motor grossly within normal limits. Normal speech. PSYCHIATRIC: Depressed mood and flat affect; insight and judgment normal. Data Data Last Documented VS Vital Signs Date Time Temp Pulse Resp B/P Pulse Ox O2 Delivery O2 Flow Rate FiO2 11/07/16 13:07 91 20 87/66 99 11/07/16 11:56 98.4 Orders Iv Access Insert/Monitor (11/07/16 11:26) Complete Blood Count With Diff (11/07/16 11:26) Comprehensive Metabolic Panel (11/07/16 11:26) Sodium Chlor 0.9% 1000 Ml Inj (Ns 1000 M (11/07/16 11:30) Labs Laboratory Tests Test 11/07/16 11:35 White Blood Count 4.6 TH/MM3 Red Blood Count 3.33 MIL/MM3 Hemoglobin 9.9 GM/DL Hematocrit 29.4 % Mean Corpuscular Volume 88.3 FL Mean Corpuscular Hemoglobin 29.6 PG Mean Corpuscular Hemoglobin 33.5 % Concent Red Cell Distribution Width 16.6 % Platelet Count 196 TH/MM3 Mean Platelet Volume 8.8 FL Neutrophils (%) (Auto) 70.0 % Lymphocytes (%) (Auto) 12.3 % Monocytes (%) (Auto) 16.0 % Eosinophils (%) (Auto) 0.7 % Basophils (%) (Auto) 1.0 % Neutrophils # (Auto) 3.3 TH/MM3 Lymphocytes # (Auto) 0.6 TH/MM3 Monocytes # (Auto) 0.7 TH/MM3 Eosinophils # (Auto) 0.0 TH/MM3 Basophils # (Auto) 0.0 TH/MM3 CBC Comment DIFF FINAL Differential Comment Sodium Level 132 MEQ/L Potassium Level 3.5 MEQ/L Chloride Level 97 MEQ/L Carbon Dioxide Level 24.8 MEQ/L Anion Gap 10 MEQ/L Blood Urea Nitrogen 28 MG/DL Creatinine 1.20 MG/DL Estimat Glomerular Filtration 46 ML/MIN Rate Random Glucose 132 MG/DL Calcium Level 8.9 MG/DL Total Bilirubin 0.6 MG/DL Aspartate Amino Transf 24 U/L (AST/SGOT) Alanine Aminotransferase 21 U/L (ALT/SGPT) Alkaline Phosphatase 208 U/L Total Protein 7.1 GM/DL Albumin 2.6 GM/DL MDM Medical Decision Making Medical Screen Exam Complete: Yes Emergency Medical Condition: Yes Medical Record Reviewed: Yes Differential Diagnosis Metastatic disease, failure to thrive, malnourishment Narrative Course I have reviewed the patient's electronic medical record. Reviewed her oncologist note from earlier this month IV placed I gave her 1 L normal saline IV Initial blood pressure in the 80s systolic She is afebrile Extended cardiac monitoring reveals sinus rhythm without ectopy Abdomen is soft and benign and nontender CBC is normal Metabolic profile reasonably normal LFTs are normal except for low albumin as expected Blood pressure is variable, as high as 103 systolic Alert. Past blood pressures. She's had multiple as low as 75 systolic She is tiny with only 35 kg weight She is well-hydrated She is cut diffusely metastatic cancer and failing to thrive and malnourished. Would be a good hospice candidate. At this time she wants to keep battling and she should follow-up with her primary care physician and oncologist. Diagnosis Primary Impression: Hypotension Qualified Code: I95.9 - Hypotension, unspecified hypotension type Additional Impression: Malnourished Qualified Code: E43 - Severe protein-calorie malnutrition Additional Instructions: The patient was advised to follow up with their physician and return if they worsen. Med/Other Pt SpecificInfo: Other Disposition: 01 DISCHARGE HOME Condition: Stable Kris Lockhart MD Nov 07, 2016 11:33
[2016-11-07 11:43] LABS: AUTOMATED NEUTROPHIL # 3.3 TH/MM3 (1.8-7.7); EOSINOPHIL % 0.7 % (0.0-4.0); HEMATOCRIT 29.4 % (35.0-46.0); HEMO FLAGS DIFF FINAL; LYMPH % 12.3 % (9.0-44.0); LYMPHOCYTE # 0.6 TH/MM3 (1.0-4.8); MEAN CELL VOLUME 88.3 FL (80.0-100.0); MEAN CORPUSCULAR HEMOGLOBIN 29.6 PG (27.0-34.0); MEAN CORPUSCULAR HGB CONC 33.5 % (32.0-36.0); PLATELET COUNT 196 TH/MM3 (150-450); RED BLOOD COUNT 3.33 MIL/MM3 (4.00-5.30); RED CELL DISTRIBUTION WIDTH 16.6 % (11.6-17.2); WHITE BLOOD COUNT 4.6 TH/MM3 (4.0-11.0)
[2016-11-07 11:49] LABS: CHLORIDE 97 MEQ/L (98-107); POTASSIUM 3.5 MEQ/L (3.5-5.1); SODIUM (NA) 132 MEQ/L (136-145)
[2016-11-07 11:53] LABS: ANION GAP 10 MEQ/L (5-15); BICARBONATE 24.8 MEQ/L (21.0-32.0); BLOOD UREA NITROGEN 28 MG/DL (7-18)
[2016-11-07 11:56] VITALS: BP 103/63; PULSE 68; RESP 20; TEMP 98.4; O2SAT 98
[2016-11-07 11:56] LABS: ALT (GPT) 21 U/L (10-53); AST (GOT) 24 U/L (15-37); GLOMERULAR FILTRATION RATE 46 ML/MIN (>89)
[2016-11-07 11:57] LABS: TOTAL BILIRUBIN ADULT 0.6 MG/DL (0.2-1.0)
[2016-11-07 11:59] LABS: ALKALINE PHOSPHATASE 208 U/L (45-117)
[2016-11-07 13:07] VITALS: BP 87/66; PULSE 91; RESP 20; O2SAT 99
== END 2016-11-07 14:20 | disposition home or self-care (01) ==
LOC: PHED 11:06
DX: I95.9 Hypotension, unspecified (principal); E43 Unspecified severe protein-calorie malnutrition; R62.7 Adult failure to thrive; C05.2 Malignant neoplasm of uvula; C78.00 Secondary malignant neoplasm of unspecified lung; C78.7 Secondary malignant neoplasm of liver and intrahepatic bile duct; Z72.0 Tobacco use; Z79.01 Long term (current) use of anticoagulants; Z86.79 Personal history of other diseases of the circulatory system
CPT/HCPCS: 80053; 85025; 96360; 96361; J7030

== ENCOUNTER 2016-11-10 05:13 | Inpatient (IN) | payer BC ==
[~2016-11-10] VITALS: Ht 160 cm; Wt 35.0 kg
[2016-11-10] VITALS (8 sets, daily range): BP systolic 98–154; BP diastolic 55–76; PULSE 84–102; RESP 18–24; TEMP 97.8–100.5; O2SAT 96–100
--- NOTE | 2016-11-10 05:59 | PD ---
HPI Chief Complaint: Respiratory Symptoms Time Seen by Provider: 05:25 Travel History International Travel<30 days: No Contact w/Intl Traveler<30days: No Traveled to known affect area: No History of Present Illness HPI Patient is an unfortunate 61 year old female with history of newly diagnosed lung cancer, presents to emergency room with her family with complaints of respiratory distress, malnutrition, failure to thrive. 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 In September, patient suffered a thromboembolic events to her left lower extremity which was treated by thrombolytic therapy. Patient at that time was evaluated and found to have metastatic disease. Patient was found to have multiple liver metastasis, bilateral adrenal gland masses, ovarian masses, endometrial masses, biopsy revealed non-small cell cell cancer. Patient had a PET scan on October 30 which showed that the etiology for cancer with lung cancer primarily. Patient began chemotherapy on October 31. As per family, patient began to decompensate on November 01, decreased oral intake, reports that she does not eat or drink anything. Patient was able to tolerate a popsicle yesterday, reports that this is the only substance that she has eaten. Family concerned as patient appeared lethargic today, that she was minimally responsive, reports concern for failure to thrive. Family has discussed the possibility of hospice, reports that patient would like to try to fight his cancer and does not want a place on hospice at this time. At this time, patient remains a full code at patient's request. Patient's oncologist is Dr. Sung Ventura [facility] Past Medical History Hx Anticoagulant Therapy: Yes Cancer: Yes ([place] cancer, LUNG WITH METS TO LIVER) Cardiovascular Problems: No Chemotherapy: Yes Cerebrovascular Accident: Yes (2009) Diabetes: No Diminished Hearing: No Endocrine: No Genitourinary: No Hiatal Hernia: No Immune Disorder: No Musculoskeletal: No Neurologic: No Reproductive: No Respiratory: No Immunizations Current: No Radiation Therapy: Yes Thyroid Disease: No ?: Not Menopausal: Yes : 3 Para: 2 Tubal Ligation: Yes Past Surgical History Cardiac Surgery: No Ear Surgery: No Endocrine Surgery: No Eye Surgery: No Joint Replacement: No Other Surgery: Yes (Uvula surgery , TUBAL LIGATION) Social History Alcohol Use: No Tobacco Use: Yes Substance Use: Yes (marijuana occasionally) Allergies-Medications (Allergen,Severity, Reaction): Coded Allergies: ampicillin (Unverified Allergy, Intermediate, Rash, 11/10/16) Uncoded Allergies: AMPICILLIN-RASH (Allergy, Intermediate, Rash, 05/02/09) NKA (Allergy, Unknown, 11/28/02) Reported Meds & Prescriptions Reported Meds & Active Scripts Active Walker with Front Wheels (Device) 1 Mis Mis 1 Ea .ROUTE DIRECTED Adult Aspirin EC Low Strength (Aspirin) 81 Mg Tabec 81 Mg PO DAILY Simvastatin 40 Mg Tab 40 Mg PO HS Plavix (Clopidogrel Bisulfate) 75 Mg Tab 75 Mg PO DAILY Senna Plus 8.6-50 mg (Sennosides-Docusate Sodium) 1 Tab Tab 1 Tab PO BID Reported Lovenox Inj (Enoxaparin Sodium) 30 Mg/0.3 Ml Syr 30 Mg SQ BID Review of Systems ROS Limitations: Altered Mental Status General / Constitutional: No: Fever Eyes: No: Visual changes HENT: No: Headaches Cardiovascular: No: Chest Pain or Discomfort Respiratory: No: Shortness of Breath Gastrointestinal: No: Abdominal Pain Genitourinary: No: Dysuria Musculoskeletal: No: Pain Skin: No Rash Neurologic: Positive: Weakness Psychiatric: No: Depression Endocrine: No: Polydipsia Hematologic/Lymphatic: No: Easy Bruising Physical Exam Narrative GENERAL: Cachectic appearing SKIN: Focused skin assessment warm/dry. HEAD: Atraumatic. Normocephalic. EYES: Pupils equal and round. No scleral icterus. No injection or drainage. ENT: No nasal bleeding or discharge. Mucous membranes pink and moist. NECK: Trachea midline. No JVD. CARDIOVASCULAR: Regular rate and rhythm. No murmur appreciated. RESPIRATORY: No accessory muscle use. Clear to auscultation. Breath sounds equal bilaterally. GASTROINTESTINAL: Abdomen soft, non-tender, nondistended. Hepatic and splenic margins not palpable. MUSCULOSKELETAL: No obvious deformities. No clubbing. No cyanosis. No edema. NEUROLOGICAL: Awake and alert. No obvious cranial nerve deficits. Motor grossly within normal limits. Normal speech. PSYCHIATRIC: depressed mood and affect Data Data Last Documented VS Vital Signs Date Time Temp Pulse Resp B/P (MAP) Pulse Ox O2 Delivery O2 Flow Rate FiO2 11/10/16 05:22 95 Nasal Cannula 2.00 11/10/16 05:17 100.5 89 24 103/55 (71) Orders Orders Electrocardiogram (11/10/16 05:46) Complete Blood Count With Diff (11/10/16 05:46) Comprehensive Metabolic Panel (11/10/16 05:46) Prothrombin Time / Inr (Pt) (11/10/16 05:46) Act Partial Throm Time (Ptt) (11/10/16 05:46) Lactic Acid Sepsis Protocol (11/10/16 05:46) Magnesium (Mg) (11/10/16 05:46) Lipase (11/10/16 05:46) Urinalysis - C+S If Indicated (11/10/16 05:46) Blood Culture (11/10/16 05:46) Chest, Single Ap (11/10/16 05:46) Blood Glucose (11/10/16 05:46) Ecg Monitoring (11/10/16 05:46) Iv Access Insert/Monitor (11/10/16 05:46) Oximetry (11/10/16 05:46) Sodium Chlor 0.9% 1000 Ml Inj (Ns 1000 M (11/10/16 06:00) Albuterol-Ipratropium Neb (Duoneb Neb) (11/10/16 06:00) Dext 5%-Nacl 0.9% 1000 Ml Inj (D5w-Ns 10 (11/10/16 06:00) ^ Straight Catheter (11/10/16 05:51) Labs Laboratory Tests Test 11/10/16 06:15 11/10/16 06:16 White Blood Count 11.5 TH/MM3 Red Blood Count 2.98 MIL/MM3 Hemoglobin 8.5 GM/DL Hematocrit 26.5 % Mean Corpuscular Volume 89.0 FL Mean Corpuscular Hemoglobin 28.5 PG Mean Corpuscular Hemoglobin Concent 32.0 % Red Cell Distribution Width 17.8 % Platelet Count 231 TH/MM3 Mean Platelet Volume 8.2 FL Neutrophils (%) (Auto) 86.4 % Lymphocytes (%) (Auto) 4.6 % Monocytes (%) (Auto) 8.6 % Eosinophils (%) (Auto) 0.1 % Basophils (%) (Auto) 0.3 % Neutrophils # (Auto) 9.9 TH/MM3 Lymphocytes # (Auto) 0.5 TH/MM3 Monocytes # (Auto) 1.0 TH/MM3 Eosinophils # (Auto) 0.0 TH/MM3 Basophils # (Auto) 0.0 TH/MM3 CBC Comment AUTO DIFF Prothrombin Time 14.4 SEC Prothromb Time International Ratio 1.3 RATIO Activated Partial Thromboplast Time 32.3 SEC MDM Medical Decision Making Medical Screen Exam Complete: Yes Emergency Medical Condition: Yes Interpretation(s) Vital Signs Date Time Temp Pulse Resp B/P (MAP) Pulse Ox O2 Delivery O2 Flow Rate FiO2 11/10/16 05:22 95 Nasal Cannula 2.00 11/10/16 05:17 100.5 89 24 103/55 (71) 96 Differential Diagnosis Differential includes failure to thrive, sepsis, pneumonia, COPD exacerbation, electrolyte abnormality Narrative Course Patient is an unfortunate 61-year-old female with newly diagnosed lung cancer which has metastasized, presents to emergency room with her family with failure to thrive. Reports that ever since her chemotherapy 10 days ago, patient has had decreased oral intake. Reports that tonight, patient appeared lethargic, reports that she was minimally responsive, reports concerns for her well-being. Patient's wishes are to remain a full code and to fight this cancer, they do not want hospice care this time. Vital Signs Date Time Temp Pulse Resp B/P (MAP) Pulse Ox O2 Delivery O2 Flow Rate FiO2 11/10/16 05:22 95 Nasal Cannula 2.00 11/10/16 05:17 100.5 89 24 103/55 (71) 96 Patient with no complaints at bedside, vital signs were reviewed. Patient is febrile with a temperature of 100.5, respiratory rate is 24. Patient does have SIRS criteria, given that she received chemotherapy 10 days ago, sepsis workup initiated. D5 NS ordered. patient will require admission for failure to thrive Diagnosis Primary Impression: Malnourished Additional Impression: Failure to thrive in adult Joy Ortiz DO Nov 10, 2016 05:59
[2016-11-10] MEDS ORDERED: DEXT 5%-NACL 0.9% 1000 ML INJ 1,000 ML IV ONE (06:00)
[2016-11-10] MEDS ORDERED: SODIUM CHLOR 0.9% 1000 ML INJ 1,000 ML IV ONE (06:00)
[2016-11-10] MEDS: RESP: ALBUTEROL 2.5 MG/IPRATROPIUM 0.5 MG NEB (SCH) INH (06:04)
--- NOTE | 2016-11-10 06:13 | RADRPT ---
EXAM DATE/TIME: 11/10/2016 06:00 [facility] COMPARISON: CT ABDOMEN W/O CONTRAST, October 27, 2016, 15:18. INDICATIONS : Weakness. MEDICAL HISTORY : Metastatic disease. SURGICAL HISTORY : None. ENCOUNTER: Initial ACUITY: 1 day PAIN SCORE: 0/10 LOCATION: Bilateral chest FINDINGS: There is mild left basilar airspace disease slightly increased from September 30 comparison. Right lung is relatively clear. Biapical pleural thickening. Heart size normal. CONCLUSION: Mild left basilar airspace disease. Apical pleural thickening. Kade Bangura MD on November 10, 2016 at 6:10 Board Certified Radiologist. This report was verified electronically.
[2016-11-10 06:41] LABS: AUTOMATED NEUTROPHIL # 9.9 TH/MM3 (1.8-7.7); BASOPHIL % 0.3 % (0.0-2.0); EOSINOPHIL % 0.1 % (0.0-4.0); HEMATOCRIT 26.5 % (35.0-46.0); LYMPH % 4.6 % (9.0-44.0); LYMPHOCYTE # 0.5 TH/MM3 (1.0-4.8); MEAN CORPUSCULAR HEMOGLOBIN 28.5 PG (27.0-34.0); MONO % 8.6 % (0.0-8.0); NEUT % 86.4 % (16.0-70.0); PLATELET COUNT 231 TH/MM3 (150-450); RED BLOOD COUNT 2.98 MIL/MM3 (4.00-5.30); RED CELL DISTRIBUTION WIDTH 17.8 % (11.6-17.2); WHITE BLOOD COUNT 11.5 TH/MM3 (4.0-11.0)
[2016-11-10 06:47] LABS: HEMO FLAGS AUTO DIFF
[2016-11-10 06:49] LABS: APTT (PATIENT) 32.3 SEC (24.3-30.1); INTERNATIONAL NORMALIZED RATIO 1.3 RATIO; PROTHROMBIN TIME - PATIENT 14.4 SEC (9.8-11.6)
[2016-11-10 07:14] LABS: ALKALINE PHOSPHATASE 187 U/L (45-117); ALT (GPT) 25 U/L (10-53); ANION GAP 8 MEQ/L (5-15); AST (GOT) 32 U/L (15-37); BICARBONATE 25.7 MEQ/L (21.0-32.0); BLOOD UREA NITROGEN 14 MG/DL (7-18); CHLORIDE 103 MEQ/L (98-107); GLOMERULAR FILTRATION RATE 73 ML/MIN (>89); SODIUM (NA) 137 MEQ/L (136-145); TOTAL BILIRUBIN ADULT 0.5 MG/DL (0.2-1.0)
[2016-11-10 07:19] LABS: POTASSIUM 2.9 MEQ/L (3.5-5.1)
[2016-11-10 07:22] LABS: BACTERIA, URINE RARE /hpf; BLOOD, URINE NEG (NEG); COMMENT (UR) CATH-CULTURE IND; CULTURE IF INDICATED CATH CULTURE IND; GLUCOSE,URINE NEG (NEG); HYALINE CAST, URINE 2 /lpf (RARE); KETONE, URINE NEG (NEG); MUCUS URINE FEW /lpf (OCC); NITRITE,URINE NEG (NEG); SQUAMOUS EPITHELIAL CELL URINE <1 /hpf (0-5); URINE COLOR YELLOW (YELLW/STRAW)
[2016-11-10] MEDS ORDERED: POTASSIUM CHLORIDE INJ 30 MEQ in DEXT 5%-NACL 0.9% 1000 ML INJ 1,000 ML IV SCH (07:30)
--- NOTE | 2016-11-10 07:30 | PD ---
Physical Exam Date Seen by Provider: Nov 10, 2016 Time Seen by Provider: 07:00 Narrative The patient was signed out to me by Dr. Ortiz at change of shift. We are waiting laboratory tests. This is a 61-year-old female with unfortunate history of diffuse metastatic lung cancer. Patient has metastases to multiple areas of her body. She presents here with weakness and altered sensorium. Data Data Last Documented VS Vital Signs Date Time Temp Pulse Resp B/P (MAP) Pulse Ox O2 Delivery O2 Flow Rate FiO2 11/10/16 08:15 18 11/10/16 07:15 103 99 Nasal Cannula 3.00 11/10/16 07:15 97.8 108/58 (75) Orders Orders Electrocardiogram (11/10/16 05:46) Complete Blood Count With Diff (11/10/16 05:46) Comprehensive Metabolic Panel (11/10/16 05:46) Prothrombin Time / Inr (Pt) (11/10/16 05:46) Act Partial Throm Time (Ptt) (11/10/16 05:46) Lactic Acid Sepsis Protocol (11/10/16 05:46) Magnesium (Mg) (11/10/16 05:46) Lipase (11/10/16 05:46) Urinalysis - C+S If Indicated (11/10/16 05:46) Blood Culture (11/10/16 05:46) Chest, Single Ap (11/10/16 05:46) Blood Glucose (11/10/16 05:46) Ecg Monitoring (11/10/16 05:46) Iv Access Insert/Monitor (11/10/16 05:46) Oximetry (11/10/16 05:46) Sodium Chlor 0.9% 1000 Ml Inj (Ns 1000 M (11/10/16 06:00) Albuterol-Ipratropium Neb (Duoneb Neb) (11/10/16 06:00) Dext 5%-Nacl 0.9% 1000 Ml Inj (D5w-Ns 10 (11/10/16 06:00) ^ Straight Catheter (11/10/16 05:51) Fentanyl Inj (Fentanyl Inj) (11/10/16 07:00) Urine Culture (11/10/16 06:40) Dext 5%-Nacl 0.9% 1... W/Potassium Chlor (11/10/16 07:30) Admit To Inpatient (11/10/16 ) Inpatient Certification (11/10/16 ) Diet Regular Basic (11/10/16 Breakfast) Activity Oob With Assistance (11/10/16 09:18) Vital Signs (Adult) FAISAL.Q4H (11/10/16 09:18) Admit Order (Ed Use Only) (11/10/16 09:17) Consult Palliative Care (11/10/16 ) Consult Medical Oncology (11/10/16 ) Labs Laboratory Tests Test 11/10/16 06:15 11/10/16 06:16 11/10/16 06:40 White Blood Count 11.5 TH/MM3 Red Blood Count 2.98 MIL/MM3 Hemoglobin 8.5 GM/DL Hematocrit 26.5 % Mean Corpuscular Volume 89.0 FL Mean Corpuscular Hemoglobin 28.5 PG Mean Corpuscular Hemoglobin Concent 32.0 % Red Cell Distribution Width 17.8 % Platelet Count 231 TH/MM3 Mean Platelet Volume 8.2 FL Neutrophils (%) (Auto) 86.4 % Lymphocytes (%) (Auto) 4.6 % Monocytes (%) (Auto) 8.6 % Eosinophils (%) (Auto) 0.1 % Basophils (%) (Auto) 0.3 % Neutrophils # (Auto) 9.9 TH/MM3 Lymphocytes # (Auto) 0.5 TH/MM3 Monocytes # (Auto) 1.0 TH/MM3 Eosinophils # (Auto) 0.0 TH/MM3 Basophils # (Auto) 0.0 TH/MM3 CBC Comment AUTO DIFF Differential Total Cells Counted 100 Neutrophils % (Manual) 85 % Band Neutrophils % 6 % Lymphocytes % 4 % Monocytes % 3 % Neutrophils # (Manual) 10.7 TH/MM3 Metamyelocytes 2 % Differential Comment FINAL DIFF MANUAL Platelet Estimate NORMAL Platelet Morphology Comment NORMAL Prothrombin Time 14.4 SEC Prothromb Time International Ratio 1.3 RATIO Activated Partial Thromboplast Time 32.3 SEC Blood Urea Nitrogen 14 MG/DL Creatinine 0.80 MG/DL Random Glucose 147 MG/DL Total Protein 5.4 GM/DL Albumin 2.0 GM/DL Calcium Level 8.0 MG/DL Magnesium Level 2.0 MG/DL Alkaline Phosphatase 187 U/L Aspartate Amino Transf (AST/SGOT) 32 U/L Alanine Aminotransferase (ALT/SGPT) 25 U/L Total Bilirubin 0.5 MG/DL Sodium Level 137 MEQ/L Potassium Level 2.9 MEQ/L Chloride Level 103 MEQ/L Carbon Dioxide Level 25.7 MEQ/L Anion Gap 8 MEQ/L Estimat Glomerular Filtration Rate 73 ML/MIN Lipase 156 U/L Lactic Acid Level 1.2 mmol/L Urine Color YELLOW Urine Turbidity HAZY Urine pH 6.0 Urine Specific [place] 1.016 Urine Protein 30 mg/dL Urine Glucose (UA) NEG mg/dL Urine Ketones NEG mg/dL Urine Occult Blood NEG Urine Nitrite NEG Urine Bilirubin NEG Urine Urobilinogen LESS THAN 2.0 MG/DL Urine Leukocyte Esterase NEG Urine RBC 6 /hpf Urine WBC 2 /hpf Urine Squamous Epithelial Cells <1 /hpf Urine Amorphous Sediment RARE Urine Bacteria RARE /hpf Urine Hyaline Casts 2 /lpf Urine Mucus FEW /lpf Microscopic Urinalysis Comment CATH-CULTURE IND MDM Medical Record Reviewed: Yes Supervised Visit with ARIES: No Narrative Course This is a 61-year-old female with unfortunate history of metastatic stage IV lung cancer. She presents here with generalized weakness. The patient has not been eating over the last several days. She was initially scheduled to have intravenous fluids in the oncology center. In discussion with both the and daughter, I informed them of her severely poor prognosis. They certainly do not wish her to be in distress and ill as she has now. She's been given Ativan and Dilaudid and she is much more comfortable. Dr. Esther Arias, patient's care, hospice physician is been sees the patient. He's had discussion with both the and daughter and they wish to have home hospice. We'll arrange for home hospice today. She is currently a DO NOT RESUSCITATE patient. Diagnosis Primary Impression: Malnourished Additional Impressions: Failure to thrive in adult end-stage lung cancer Disposition: 01 DISCHARGE HOME Condition: Serious Emre Duron MD Nov 10, 2016 07:30
[2016-11-10 08:14] LABS: BANDS 6 % (0-6); METAMYELOCYTES 2 % (0-1); NEUTROPHIL # MANUAL DIFF 10.7 TH/MM3 (1.8-7.7); PLATELET ESTIMATE SMEAR NORMAL (NORMAL); PLATELET MORPHOLOGY NORMAL (NORMAL); POLYS (SEG NEUTROPHILS) 85 % (16-70); SCAN/DIFF FINAL DIFF MANUAL; WBC DIFF SAMPLE 100
[2016-11-10] MEDS ORDERED: LORazepam 2 MG/ML VIAL IV PUSH ONE ×2 (11:15→17:00)
[2016-11-10] MEDS ORDERED: HYDROmorphone HCL PF 1 MG/ML VIAL IV PUSH ONE (11:15)
--- NOTE | 2016-11-10 13:53 | PD.CONS ---
Consult Service Palliative Care Consult Requested By Dr. Duron . Primary Care Physician No Primary Care Physician . Reason for Consultation a. To assist with evaluation and management of symptoms including: pain, dyspnea, anxiety b. To assist medical decision maker(s) with: better understanding of current medical conditions; weighing benefits/burdens of medical treatment options; making medical treatment decisions. . 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 She had a CT scan done at that time that showed apparent metastatic disease in the liver, adrenals, spleen, and bilateral adnexal masses. An initial liver biopsy was nonconclusive, but a subsequent biopsy revealed small cell cancer consistent with lung cancer (also appreciated on a PET scan 10/30/16). The patient had her first (and only) chemotherapy treatment on 10/31/16. The patient had been declining in recent weeks, with weight loss of about 15 pounds in the last 2 months, and becoming progressively weaker. After chemotherapy 10 days ago, the patient was ambulatory with assistance for a couple days but then became too weak to ambulate, and she has been bedbound since then. In the last 3 or 4 days prior to coming to the hospital, the patient had had no more than a single popsicle to eat, and she was progressively weaker. At the same time, she was developing more generalized pain, and worsening dyspnea. The family finally called 911 early this morning, and the patient came to the hospital reluctantly. In the emergency department, findings included: * Cachectic, weak, dyspneic * Temp 100.5, pulse 89, respirations 24, blood pressure 103/71, oxygen saturation 95% on 2 L * White count 11.5, hemoglobin 8.5 * Sodium 137, creatinine 0.8, albumin 2.0 * Chest x-ray with some airspace disease on the left The patient was given some hydromorphone and lorazepam in the emergency department for comfort, and the family reports that "this is the most comfortable she's been for a couple weeks." The emergency physician consulted Palliative Care to assist with symptom management, and to enter into discussions with the patient and family regarding her current illnesses, the prognosis, and the benefits and burdens of the various choices now. . Function/Cognitive Trajectory The patient became nonambulatory about a week prior to coming to the hospital. She had been declining for the past couple months. . Review of Systems ROS Limitations: Altered Mental Status Constitutional: COMPLAINS OF: Fever, Weight loss Endocrine: DENIES: Polyuria Eyes: DENIES: Eye inflammation Ears, nose, mouth, throat: DENIES: Epistaxis Respiratory: COMPLAINS OF: Cough, Shortness of breath Cardiovascular: COMPLAINS OF: Chest pain (global), Dyspnea on Exertion Gastrointestinal: DENIES: Bloody stools, Diarrhea, Vomiting, Vomiting blood Genitourinary: DENIES: Hematuria Musculoskeletal: DENIES: Joint pain (diffuse) Integumentary: DENIES: Rash Hematologic/Lymphatics: DENIES: Lymphadenopathy Immunologic/Allergic: DENIES: Urticaria Neurologic: DENIES: Localized weakness, Seizures Psychiatric: COMPLAINS OF: Anxiety, DENIES: Agitation, Suicidal Ideation Past Family Social History Coded Allergies: ampicillin (Unverified Allergy, Intermediate, Rash, 11/10/16) Uncoded Allergies: AMPICILLIN-RASH (Allergy, Intermediate, Rash, 05/02/09) NKA (Allergy, Unknown, 11/28/02) Past Medical History * Widely metastatic small cell lung cancer * Cachexia, rapid decline * Anemia * Peripheral vascular disease, recent included left leg artery * Carotid vascular disease, with included left common carotid and high-grade lesion on the right * Thrombocytosis, reactive * History of stroke * History of nephrolithiasis * Hyperlipidemia . Past Surgical History PEG tube when she was undergoing radiation in 2000 Tubal ligation . Reported Medications Reported Meds & Active Scripts Active Walker with Front Wheels (Device) 1 Mis Mis 1 Ea .ROUTE DIRECTED Adult Aspirin EC Low Strength (Aspirin) 81 Mg Tabec 81 Mg PO DAILY Simvastatin 40 Mg Tab 40 Mg PO HS Plavix (Clopidogrel Bisulfate) 75 Mg Tab 75 Mg PO DAILY Senna Plus 8.6-50 mg (Sennosides-Docusate Sodium) 1 Tab Tab 1 Tab PO BID Reported Lovenox Inj (Enoxaparin Sodium) 30 Mg/0.3 Ml Syr 30 Mg SQ BID . Current Medications Medications (Trade) Dose Ordered Sig/Westley Route Start Time Stop Time Status Last Admin Potassium Chloride 30 meq/ Dextrose/Sodium Chloride 1,015 ml @ 42 mls/hr Q24H IV 8/21/17 07:30 11/10/16 07:54 Family History The patient's mother at age 56 of an aneurysm, and her father in his 80s of prostate cancer. No family history of lung cancer . Substance Use Tobacco: Has smoked for many years Alcohol: Occasional Prescription med abuse: None Illicits: Uses marijuana . Psychosocial History The patient has been living with her , and the daughter recently came from [place] to assist. She has been for 36 years, and has one daughter and one son. . Spiritual/Cultural Factors The patient is reported to not be very spiritual, and the family does not believe she would want a ward maid visit. . Living Will: Never completed Health Care Surrogate: Never completed Durable Power of Cargo Broker: Never completed Family/friends goals: The patient's and daughter have requested a transition to comfort care and a consult with hospice. They are hoping the patient can go home with hospice help for her last days/weeks. . Ethical and Legal Issues There are no ethical issues that would impact her care or decision-making at this time. At this time, the patient lacks capacity for decision-making, and it is uncertain whether she will regain capacity. Her is the decision making proxy. . Physical Exam Vital Signs Date Time Temp Pulse Resp B/P (MAP) Pulse Ox O2 Delivery O2 Flow Rate FiO2 11/10/16 12:02 18 11/10/16 10:41 97.9 88 18 101/59 (73) 99 Nasal Cannula 3.00 11/10/16 09:30 97.8 86 18 98/56 (70) 98 Nasal Cannula 3.00 11/10/16 08:15 18 11/10/16 07:15 103 18 99 Nasal Cannula 3.00 11/10/16 07:15 97.8 102 18 108/58 (75) 97 Nasal Cannula 3.00 11/10/16 05:22 95 Nasal Cannula 2.00 11/10/16 05:17 100.5 89 24 103/55 (71) 96 11/10/16 11/11/16 19:00 07:00 Intake Total 1100 ml Balance 1100 ml Intake Oral 100 ml IV Total 1000 ml # Voids 2 # Bowel Movements 1 Exam CONSTITUTIONAL/GENERAL: This is a weak, cachectic, lethargic patient, in no apparent distress. Current PPS 20%. TUBES/LINES/DRAINS: Peripheral IV, nasal cannula oxygen SKIN: No jaundice, rashes, or lesions. Ecchymoses on upper extremities. No wounds seen anteriorly. Skin temperature appropriate. Not diaphoretic. HEAD: Atraumatic. Normocephalic. EYES: Pupils equal and round and reactive. No scleral icterus. No injection or drainage. Fundi not examined. ENT: Nose without bleeding or purulent drainage. Throat without visible erythema , exudates, masses, or lesions. NECK: Trachea midline. Supple, nontender. No palpable thyroid enlargement or nodularity. CARDIOVASCULAR: Regular rate and rhythm without murmurs, gallops, or rubs. No JVD. Peripheral pulses diminished RESPIRATORY/CHEST: Symmetric, unlabored respirations. Clear to auscultation, with diminished breath sounds GASTROINTESTINAL: Abdomen soft, non-tender, nondistended. No hepato-splenomegaly , or palpable masses. No guarding. Bowel sounds present. GENITOURINARY: Without palpable bladder distension. MUSCULOSKELETAL: Extremities without clubbing, cyanosis, or edema. No joint tenderness or effusion noted. No calf tenderness. No mottling or clubbing. LYMPHATICS: No palpable cervical or supraclavicular adenopathy. NEUROLOGICAL: Lethargic, moves all 4 extremities PSYCHIATRIC: Was reportedly restless and anxious earlier, now more peaceful after receiving medicine . Diagnostic Tests Laboratory Laboratory Tests Test 11/10/16 06:15 11/10/16 06:16 11/10/16 06:40 White Blood Count 11.5 TH/MM3 (4.0-11.0) Red Blood Count 2.98 MIL/MM3 (4.00-5.30) Hemoglobin 8.5 GM/DL (11.6-15.3) Hematocrit 26.5 % (35.0-46.0) Mean Corpuscular Volume 89.0 FL (80.0-100.0) Mean Corpuscular Hemoglobin 28.5 PG (27.0-34.0) Mean Corpuscular Hemoglobin Concent 32.0 % (32.0-36.0) Red Cell Distribution Width 17.8 % (11.6-17.2) Platelet Count 231 TH/MM3 (150-450) Mean Platelet Volume 8.2 FL (7.0-11.0) Neutrophils (%) (Auto) 86.4 % (16.0-70.0) Lymphocytes (%) (Auto) 4.6 % (9.0-44.0) Monocytes (%) (Auto) 8.6 % (0.0-8.0) Eosinophils (%) (Auto) 0.1 % (0.0-4.0) Basophils (%) (Auto) 0.3 % (0.0-2.0) Neutrophils # (Auto) 9.9 TH/MM3 (1.8-7.7) Lymphocytes # (Auto) 0.5 TH/MM3 (1.0-4.8) Monocytes # (Auto) 1.0 TH/MM3 (0-0.9) Eosinophils # (Auto) 0.0 TH/MM3 (0-0.4) Basophils # (Auto) 0.0 TH/MM3 (0-0.2) CBC Comment AUTO DIFF Differential Total Cells Counted 100 Neutrophils % (Manual) 85 % (16-70) Band Neutrophils % 6 % (0-6) Lymphocytes % 4 % (9-44) Monocytes % 3 % (0-8) Neutrophils # (Manual) 10.7 TH/MM3 (1.8-7.7) Metamyelocytes 2 % (0-1) Differential Comment FINAL DIFF MANUAL Platelet Estimate NORMAL (NORMAL) Platelet Morphology Comment NORMAL (NORMAL) Prothrombin Time 14.4 SEC (9.8-11.6) Prothromb Time International Ratio 1.3 RATIO Activated Partial Thromboplast Time 32.3 SEC (24.3-30.1) Blood Urea Nitrogen 14 MG/DL (7-18) Creatinine 0.80 MG/DL (0.50-1.00) Random Glucose 147 MG/DL (74-106) Total Protein 5.4 GM/DL (6.4-8.2) Albumin 2.0 GM/DL (3.4-5.0) Calcium Level 8.0 MG/DL (8.5-10.1) Magnesium Level 2.0 MG/DL (1.5-2.5) Alkaline Phosphatase 187 U/L (45-117) Aspartate Amino Transf (AST/SGOT) 32 U/L (15-37) Alanine Aminotransferase (ALT/SGPT) 25 U/L (10-53) Total Bilirubin 0.5 MG/DL (0.2-1.0) Sodium Level 137 MEQ/L (136-145) Potassium Level 2.9 MEQ/L (3.5-5.1) Chloride Level 103 MEQ/L (98-107) Carbon Dioxide Level 25.7 MEQ/L (21.0-32.0) Anion Gap 8 MEQ/L (5-15) Estimat Glomerular Filtration Rate 73 ML/MIN (>89) Lipase 156 U/L (73-393) Lactic Acid Level 1.2 mmol/L (0.4-2.0) Urine Color YELLOW (YELLW/STRAW) Urine Turbidity HAZY (CLEAR) Urine pH 6.0 (5.0-8.5) Urine Specific [place] 1.016 (1.002-1.035) Urine Protein 30 mg/dL (NEG-TRACE) Urine Glucose (UA) NEG mg/dL (NEG) Urine Ketones NEG mg/dL (NEG) Urine Occult Blood NEG (NEG) Urine Nitrite NEG (NEG) Urine Bilirubin NEG (NEG) Urine Urobilinogen LESS THAN 2.0 MG/DL (LESS Urine Leukocyte Esterase NEG (NEG) Urine RBC 6 /hpf (0-3) Urine WBC 2 /hpf (0-5) Urine Squamous Epithelial Cells <1 /hpf (0-5) Urine Amorphous Sediment RARE Urine Bacteria RARE /hpf (NONE) Urine Hyaline Casts 2 /lpf (RARE) Urine Mucus FEW /lpf (OCC) Microscopic Urinalysis Comment CATH-CULTURE IND Result Diagram: 11/10/1615 11/10/1615 Microbiology Microbiology Date/Time Source Procedure Growth Status 11/10/16 06:15 Blood Peripheral Aerobic Blood Culture Pending Received 11/10/16 06:15 Blood Peripheral Anaerobic Blood Culture Pending Received 11/10/16 06:10 Blood Peripheral Aerobic Blood Culture Pending Received 11/10/16 06:10 Blood Peripheral Anaerobic Blood Culture Pending Received 11/10/16 06:40 Urine Catheterized Urine Urine Culture Pending Received Patient/Family Conference Present at Family Conference: Patient's and daughter . Family Conference Time (mins): 44 Family Conference Location: [facility] Issues Discussed: * Palliative care role, purpose, approach * Hospice care role, purpose, approach * Additional medical, psychosocial, and spiritual history * Patients general health, functional status, and cognitive changes in the months leading up to the current hospitalization * Patient/family understanding of the current medical problems * Patient/family understanding of prognosis * Patients goals of care as best understood from advance directives and/or conversations and/or values * Current medical treatment options and benefits/burdens of those options * Likely scenarios comparing ongoing aggressive care with a transition to comfort measures only * Questions answered to the best of my ability * Palliative care contact information provided The patient's and daughter have requested a transition to comfort care and a consult with hospice. They are hoping the patient can go home with hospice help for her last days/weeks. . Assessment and Plan Disease Oriented Problem List: (1) widely metastatic small cell lung cancer (2) cachexia, rapid decline (3) anemia (4) peripheral vascular disease, recent occluded left leg artery (5) carotid vascular disease, with occlusion of the left common carotid and high -grade lesion on the right (6) thrombocytosis, reactive (7) history of stroke (8) history of nephrolithiasis (9) hyperlipidemia Symptom Scale: (1) pain 0-10 Scale: Unable to quantify (2) anxiety 0-10 Scale: Unable to quantify (3) dyspnea 0-10 Scale: Unable to quantify Pertinent Non-Medical Issues Psychosocial: Retired, lives with , has 1 son and 1 daughter Spiritual: Family reports the patient would not want ward maid visits Legal: At this time, the patient lacks capacity for decision-making, and it is uncertain whether she will regain capacity. Her is the decision making proxy. Ethical issues impacting care: None . Important Contacts : Kade [phone] Daughter Yennifer: [phone] . Prognosis The patient is terminal, and likely has just days to live. She is hospice appropriate. . Code Status: No Code Plan * DO NOT RESUSCITATE, per request of and daughter 11/10/16 * GOALS: The patient's and daughter have requested a transition to comfort care and a consult with hospice. They are hoping the patient can go home with hospice help for her last days/weeks. * Hospice consult placed. * DECISION-MAKING: At this time, the patient lacks capacity for decision-making , and it is uncertain whether she will regain capacity. Her is the decision making proxy. * SYMPTOMS: The patient has had pain, musculoskeletal discomfort, dyspnea, and anxiety, and all the symptoms have been improved after she received some hydromorphone and lorazepam in the emergency department. She will need to continue to have access to those medicines. * Palliative Care will continue to follow the patient during this hospitalization. . Time Spent Total Floor Time (mins): 76 Face to Face Time (mins): 50 >50% Counseling/Coord of Care: Yes (d/w Dr. Duron and w RN) Thank you for the opportunity to participate in the care of Ms. Joshi. Attestation To help prompt me to consider important information that might be impacting today's encounter and assessment, information from prior notes written by myself or my colleagues may have been "brought forward" into today's note. My signature on this note, however, is an attestation that I personally performed the exam, history, and/or decision-making noted today, and, unless otherwise indicated, the interactions with patient, family, and staff as well as the review of records all occurred today. I also attest that the listed assessment and stated plan reflect my best clinical judgment today based on the combination of historical information, prior notes, and today's exam/ interactions. When time spent is documented, it refers only to time spent today by the signer, or if indicated, combined time spent today by collaborating physician/nurse practitioner. Esther Arias MD Nov 10, 2016 13:53
[2016-11-10] MEDS ORDERED: HYDROmorphone HCL PF 1 MG/ML VIAL IVS ONE (17:00)
[2016-11-10] MEDS ORDERED: SENNOSIDES 8.6 MG TAB PO PRN (19:00)
[2016-11-10] MEDS ORDERED: VANCOMYCIN INJ 700 MG in SODIUM CHLOR 0.9% 250 ML INJ 250 ML IV ONE ×2 (19:00→21:00)
[2016-11-10] MEDS ORDERED: Vancomycin Consult Pharmacy 1 EA OTHER SCH (19:00)
[2016-11-10] MEDS ORDERED: LACTULOSE SYRUP 20 GM/30 ML CUP PO PRN (19:00)
[2016-11-10] MEDS ORDERED: guaiFENesin/CODEINE SYRUP 200 MG/20 MG/10 ML CUP PO PRN (19:00)
[2016-11-10] MEDS ORDERED: HYDROmorphone HCL PF 1 MG/ML VIAL IV PRN (19:00)
[2016-11-10] MEDS ORDERED: LORazepam 2 MG/ML VIAL IV PUSH PRN (19:00)
[2016-11-10] MEDS ORDERED: ACETAMINOPHEN 325 MG TAB PO PRN ×2 (19:00)
[2016-11-10] MEDS ORDERED: RESP: ALBUTEROL 2.5 MG/IPRATROPIUM 0.5 MG NEB (PRN) INH (19:00)
[2016-11-10] MEDS ORDERED: HYDROmorphone HCL 2 MG TAB PO PRN ×2 (19:00)
[2016-11-10] MEDS ORDERED: ONDANSETRON HCL 4 MG/2 ML VIAL IV PRN (19:00)
[2016-11-10] MEDS ORDERED: NALOXONE HCL 0.4 MG/ML AMP IV PRN (19:00)
[2016-11-10] MEDS ORDERED: POTASSIUM CHLORIDE 10 MEQ CONTROLLED RELEASE TAB PO ONE (19:00)
[2016-11-10] MEDS ORDERED: MAGNESIUM HYDROXIDE SUSP 30 ML CUP PO PRN (19:00)
--- NOTE | 2016-11-10 19:02 | HHI.PR ---
Addendum to Inpatient Note Additional Information Patient was already discharged to home. Not seen by [facility] Danyel Griffin MD Nov 10, 2016 19:02
[2016-11-10] MEDS ORDERED: AZITHROMYCIN INJ 500 MG in SODIUM CHLOR 0.9% 250 ML INJ 250 ML IV SCH (20:00)
[2016-11-10] MEDS ORDERED: RESP: ALBUTEROL 2.5 MG/IPRATROPIUM 0.5 MG NEB (SCH) INH (20:00)
[2016-11-10] MEDS ORDERED: HEPARIN SODIUM - SQ 10,000 UNITS/ML VIAL SQ SCH (20:00)
--- NOTE | 2016-11-10 20:41 | HHI.HP ---
HPI Service [facility] Primary Care Physician No Primary Care Physician Admission Diagnosis weakness, hypokalemia, stage 4 metastatic cancer Diagnoses: Chief Complaint: weakness Travel History International Travel<30 Days: No Contact w/Intl Traveler <30 Da: No Traveled to Known Affected Are: No History of Present Illness at around Patient seen with family at bedside earlier at around 2 pm 61 years old female with Stage IV cancer ff by Oncology service brought in by family due to generalized weakness and deteriorating condition. Poor po intake. She was promptly seen by Palliative care consult. I discuss with family regarding hospice and they are open to it- d/w them different hospice options home hospice vs hospice care center and even in patient hospice. they are leaning towards home hospice. One daughter is familiar with hospice service and comfort measures FAmily refused any tube feedings Review of Systems ROS Limitations: Altered Mental Status Past Family Social History Past Medical History * Widely metastatic small cell lung cancer * Cachexia, rapid decline * Anemia * Peripheral vascular disease, recent included left leg artery * Carotid vascular disease, with included left common carotid and high-grade lesion on the right * Thrombocytosis, reactive * History of stroke * History of nephrolithiasis * Hyperlipidemia . Past Surgical History PEG tube when she was undergoing radiation in 2000 Tubal ligation . Allergies: Coded Allergies: ampicillin (Unverified Allergy, Intermediate, Rash, 11/10/16) Uncoded Allergies: AMPICILLIN-RASH (Allergy, Intermediate, Rash, 05/02/09) NKA (Allergy, Unknown, 11/28/02) Family History The patient's mother at age 56 of an aneurysm, and her father in his 80s of prostate cancer. No family history of lung cancer . Physical Exam Vital Signs Vital Signs Date Time Temp Pulse Resp B/P (MAP) Pulse Ox O2 Delivery O2 Flow Rate FiO2 11/10/16 18:49 97.8 78 20 118/69 (85) 99 Nasal Cannula 3.00 11/10/16 17:42 20 11/10/16 17:18 97.8 96 20 154/76 (102) 97 Nasal Cannula 3.00 11/10/16 15:41 97.8 84 18 118/60 (79) 100 Nasal Cannula 3.00 11/10/16 12:02 18 11/10/16 10:41 97.9 88 18 101/59 (73) 99 Nasal Cannula 3.00 11/10/16 09:30 97.8 86 18 98/56 (70) 98 Nasal Cannula 3.00 11/10/16 08:15 18 11/10/16 07:15 103 18 99 Nasal Cannula 3.00 11/10/16 07:15 97.8 102 18 108/58 (75) 97 Nasal Cannula 3.00 11/10/16 05:22 95 Nasal Cannula 2.00 11/10/16 05:17 100.5 89 24 103/55 (71) 96 Physical Exam GENERAL: weak looking, dry.lethargic SKIN: No rashes, ecchymoses or lesions. Cool and dry. HEAD: Atraumatic. Normocephalic. EYES: Pupils equal round and reactive. Extraocular motions intact. No scleral icterus. No injection or drainage. ENT: Nose without bleeding, dry oral mucosa NECK:no meningeal signs. CARDIOVASCULAR: Regular rate and rhythm without murmurs, gallops, or rubs. RESPIRATORY: decrease breath sounds GASTROINTESTINAL: Abdomen soft, non-tender. No guarding. MUSCULOSKELETAL: Extremities without clubbing, cyanosis, or edema. NEUROLOGICAL: generalized weakness Laboratory Laboratory Tests Test 11/10/16 06:15 11/10/16 06:16 11/10/16 06:40 White Blood Count 11.5 Red Blood Count 2.98 Hemoglobin 8.5 Hematocrit 26.5 Mean Corpuscular Volume 89.0 Mean Corpuscular Hemoglobin 28.5 Mean Corpuscular Hemoglobin Concent 32.0 Red Cell Distribution Width 17.8 Platelet Count 231 Mean Platelet Volume 8.2 Neutrophils (%) (Auto) 86.4 Lymphocytes (%) (Auto) 4.6 Monocytes (%) (Auto) 8.6 Eosinophils (%) (Auto) 0.1 Basophils (%) (Auto) 0.3 Neutrophils # (Auto) 9.9 Lymphocytes # (Auto) 0.5 Monocytes # (Auto) 1.0 Eosinophils # (Auto) 0.0 Basophils # (Auto) 0.0 CBC Comment AUTO DIFF Differential Total Cells Counted 100 Neutrophils % (Manual) 85 Band Neutrophils % 6 Lymphocytes % 4 Monocytes % 3 Neutrophils # (Manual) 10.7 Metamyelocytes 2 Differential Comment FINAL DIFF MANUAL Platelet Estimate NORMAL Platelet Morphology Comment NORMAL Prothrombin Time 14.4 Prothromb Time International Ratio 1.3 Activated Partial Thromboplast Time 32.3 Blood Urea Nitrogen 14 Creatinine 0.80 Random Glucose 147 Total Protein 5.4 Albumin 2.0 Calcium Level 8.0 Magnesium Level 2.0 Alkaline Phosphatase 187 Aspartate Amino Transf (AST/SGOT) 32 Alanine Aminotransferase (ALT/SGPT) 25 Total Bilirubin 0.5 Sodium Level 137 Potassium Level 2.9 Chloride Level 103 Carbon Dioxide Level 25.7 Anion Gap 8 Estimat Glomerular Filtration Rate 73 Lipase 156 Lactic Acid Level 1.2 Urine Color YELLOW Urine Turbidity HAZY Urine pH 6.0 Urine Specific [place] 1.016 Urine Protein 30 Urine Glucose (UA) NEG Urine Ketones NEG Urine Occult Blood NEG Urine Nitrite NEG Urine Bilirubin NEG Urine Urobilinogen LESS THAN 2.0 Urine Leukocyte Esterase NEG Urine RBC 6 Urine WBC 2 Urine Squamous Epithelial Cells <1 Urine Amorphous Sediment RARE Urine Bacteria RARE Urine Hyaline Casts 2 Urine Mucus FEW Microscopic Urinalysis Comment CATH-CULTURE IND Date/Time Source Procedure Growth Status 11/10/16 06:15 Blood Peripheral Aerobic Blood Culture Pending Received 11/10/16 06:15 Blood Peripheral Anaerobic Blood Culture Pending Received 11/10/16 06:40 Urine Catheterized Urine Urine Culture Pending Received Result Diagram: 11/10/1615 11/10/16 0615 Caprini VTE Risk Assessment Caprini Risk Assessment Model Point Value = 1 Point Value = 2 Point Value = 3 Point Value = 5 Age 41-60 Minor surgery BMI > 25 kg/m2 Swollen legs Varicose veins or History of unexplained or recurrent spontaneous Oral contraceptives or hormone replacement Sepsis (< 1 month) Serious lung disease, including pneumonia (< 1 month) Abnormal pulmonary function Acute myocardial infarction Congestive heart failure (< 1 month) History of inflammatory bowel disease Medical patient at bed rest Age 61-74 Arthroscopic surgery Major open surgery (> 45 min) Laparoscopic surgery (> 45 min) Malignancy Confined to bed (> 72 hours) Immobilizing plaster cast Central venous access Age >= 75 History of VTE Family history of VTE Factor V Leiden Prothrombin [id number] Lupus anticoagulant Anticardiolipin antibodies Elevated serum homocysteine Heparin-induced thrombocytopenia Other congenital or acquired thrombophilia Stroke (< 1 month) Elective arthroplasty Hip, pelvis, or leg fracture Acute spinal cord injury (< 1 month) Prophylaxis Regimen Total Risk Factor Score Risk Level Prophylaxis Regimen 0-1 Low Early ambulation 2 Moderate Order ONE of the following: *Sequential Compression Device (SCD) *Heparin 5000 units SQ BID 3-4 Higher Order ONE of the following medications: *Heparin 5000 units SQ TID *Enoxaparin/Lovenox 40 mg SQ daily (WT < 150 kg, CrCl > 30 mL/min) *Enoxaparin/Lovenox 30 mg SQ daily (WT < 150 kg, CrCl > 10-29 mL/min) *Enoxaparin/Lovenox 30 mg SQ BID (WT < 150 kg, CrCl > 30 mL/min) AND/OR *Sequential Compression Device (SCD) 5 or more Highest Order ONE of the following medications: *Heparin 5000 units SQ TID (Preferred with Epidurals) *Enoxaparin/Lovenox 40 mg SQ daily (WT < 150 kg, CrCl > 30 mL/min) *Enoxaparin/Lovenox 30 mg SQ daily (WT < 150 kg, CrCl > 10-29 mL/min) *Enoxaparin/Lovenox 30 mg SQ BID (WT < 150 kg, CrCl > 30 mL/min) AND *Sequential Compression Device (SCD) Assessment and Plan Assessment and Plan 61 years old female Metastatic cancer of unknown primary- - Hospice appropriate - d/w them different hospice options - comfort measures. Physician Certification 2 Midnight Certification Type: Admission for Inpatient Services Order for Inpatient Services The services are ordered in accordance with Medicare regulations or non- Medicare payer requirements, as applicable. In the case of services not specified as inpatient-only, they are appropriately provided as inpatient services in accordance with the 2-midnight benchmark. Estimated LOS (days): 3 days is the estimated time the patient will need to remain in the hospital, assuming treatment plan goals are met and no additional complications. Post-Hospital Plan: Hospice Vesta Simpson MD Nov 10, 2016 20:41
[2016-11-10] MEDS ORDERED: AZTREONAM INJ 2,000 MG in SODIUM CHLORIDE 0.9% INJ 100 ML IV SCH (21:00)
[2016-11-10] MEDS ORDERED: DOCUSATE SODIUM 50 MG/SENNA 8.6 MG TAB PO SCH (21:00)
--- NOTE | 2016-11-10 22:26 | MB ---
cc: LUKE NOVAK M.D., RUBY ANNE E. M.D. DATE OF CONSULTATION 11/10/2016 New patient consultative summary DATE OF [birth year][address] Novak. CHIEF COMPLAINT Dr. Novak requested consultation for Ms. Joshi regarding metastatic [id number] lung cancer. HISTORY OF PRESENT ILLNESS Mr. Joshi is a 61-year-old woman with history of head and neck cancer. She developed a second primary lung cancer and treated with first cycle of carboplatin and Taxol. She has had a clinical decline since her chemotherapy. She has not been eating and drinking. She has developed weakness of the lower extremity and excessive pain. She is painful even to touch the skin. She is obtunded and difficult to arouse. Her daughters at bedside. They have accepted Hospice care which I concur. Emotional support was provided. 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 Hospice care is appropriate. Case was discussed with Dr. Novak. The patient is being transferred to Hospice care this evening. Marine Ventura MD RAD/KK /7:01 PM /10:18 PM
== END 2016-11-10 18:55 | disposition hospice, inpatient (51) | DRG 641 ==
LOC: NEPE 05:13 → NEDA 09:21
PROVIDERS: ADMIT Internal Medicine; ATTEND Internal Medicine
DX: R62.7 Adult failure to thrive (principal); E46 Unspecified protein-calorie malnutrition; C79.71 Secondary malignant neoplasm of right adrenal gland; C78.7 Secondary malignant neoplasm of liver and intrahepatic bile duct; C79.72 Secondary malignant neoplasm of left adrenal gland; C78.89 Secondary malignant neoplasm of other digestive organs; C79.82 Secondary malignant neoplasm of genital organs; C34.90 Malignant neoplasm of unspecified part of unspecified bronchus or lung; D64.9 Anemia, unspecified; E78.5 Hyperlipidemia, unspecified; E87.6 Hypokalemia; Z85.89 Personal history of malignant neoplasm of other organs and systems; Z92.21 Personal history of antineoplastic chemotherapy; Z92.3 Personal history of irradiation; Z85.818 Personal history of malignant neoplasm of other sites of lip, oral cavity, and pharynx; Z86.73 Personal history of transient ischemic attack (TIA), and cerebral infarction without residual deficits; Z72.0 Tobacco use; F12.90 Cannabis use, unspecified, uncomplicated; Z51.5 Encounter for palliative care; Z66 Do not resuscitate; I73.9 Peripheral vascular disease, unspecified; Z87.442 Personal history of urinary calculi; Z74.01 Bed confinement status; D75.89 Other specified diseases of blood and blood-forming organs; F41.9 Anxiety disorder, unspecified; R06.00 Dyspnea, unspecified
CPT/HCPCS: 71010; 80053; 81001; 83605; 83690; 83735; 85007; 85025; 85027; 85610; 85730; 87040; 87086; 87184; 87186; 87205; 87449; 94640; 94664; 96360; 96361; 96365; 96367; 96375; J1170; J2060; J3010; J3480; J7030; J7042